=== PATIENT | male | born 1980 | race Caucasian/White ===

== ENCOUNTER 2016-07-28 20:19 | Emergency (ER) | payer BC ==
[~2016-07-28] VITALS: Ht 177.8 cm; Wt 70.8 kg
[~2016-07-28 20:19] MED LIST: AZIT500T PO; FLUT0.0529 NAE; MAGN64TA4 PO; SALI0.6517 NAE
[2016-07-28 20:21] VITALS: TEMP 37.2; Ht 177.8 cm; Wt 70.8 kg
[2016-07-28] MEDS ORDERED: PRED-301 PO (20:32)
[2016-07-28] MEDS ORDERED: SODIUM CHLORIDE 0.9% 1000ML 1,000 ML IV STA ×2 (20:35→21:14)
[2016-07-28] MEDS ORDERED: ONDANSETRON INJ 2 MG/ML 2 ML VIAL IV STA ×2 (20:35→22:23)
--- NOTE | 2016-07-28 20:47 | EMERGENCY ROOM VISIT NOTE ---
History Report prepared by Nick: Saundra Nelson Under the Supervision of: Dr. Loly Velazquez M.D. First contact with patient: 20:30 Chief Complaint: VOMITING Stated Complaint: VOMITING,WORRIED ABOUT KIDNEY History of Present Illness The patient is a 36 year old male who presents to the Emergency Room with complaints of constant vomiting beginning this morning. The patient states that he thinks that he has the stomach bug that has been going around. He notes associated diarrhea, dehydration, pain in his lower back. He notes that eating or drinking causes him to vomit and worsens his symptoms. He is concerned as he has not been able to keep liquids down. The patient states that he has nephropathy and is concerned about his kidney. Source of History: patient Onset: this morning Position: other (global) Quality: other (vomiting) Timing: constant Modifying Factors (Worsening): eating, drinking Associated Symptoms: + diarrhea Note: He notes associated dehydration, pain in his lower back. Review of Systems See HPI for pertinent positives & negatives. A total of 10 systems reviewed and were otherwise negative. Past Medical & Surgical Medical Problems: (1) Gout (2) IgA nephropathy Surgical Problems: (1) H/O exploratory laparotomy Family History Hypertension Kidney disease Social History Smoking Status: Never Smoker Alcohol Use: none Drug Use: none Marital Status: single Housing Status: lives with family Occupation Status: employed Current/Historical Medications Scheduled Allopurinol (Zyloprim), 300 MG PO DAILY Atorvastatin (Lipitor), 10 MG PO DAILY Fish Oil ([place]-3), 1,200 MG PO DAILY Multivitamin (Multivitamin), 1 TAB PO DAILY Ondasetron Odt (Zofran Odt), 4 MG SL Q6H Scheduled PRN Colchicine (Colchicine), 0.6 MG PO DIRECTED PRN for PRN Fluticasone Propionate (Nasal) (Flonase), 2 SPRAYS VEE DAILY PRN for CONGESTION Prednisone (Prednisone), 5 MG PO DIRECTED PRN for PRN Allergies Coded Allergies: Acetaminophen (Unverified Allergy, Mild, ITCHY, 07/28/16) Oxycodone (Unverified Allergy, Mild, ITCHY, 07/28/16) Physical Exam Vital Signs Date Time Temp Pulse Resp B/P Pulse Ox O2 Delivery O2 Flow Rate FiO2 07/28/16 23:01 87 18 144/86 97 07/28/16 21:53 95 18 111/61 99 Room Air 07/28/16 20:21 37.2 99 18 112/62 99 Room Air Physical Exam Vital signs reviewed. General: Well-appearing, in no significant distress. HEENT: No scleral icterus, PERRLA, neck supple. Atraumatic. Cardiovascular: Regular rate and rhythm, no extra sounds. Pulmonary: Clear to auscultation bilaterally, normal work of breathing. Abdomen: Soft, nontender, nondistended, positive bowel sounds. Musculoskeletal: Atraumatic, no peripheral edema. Neurologic: Patient awake alert and oriented x 3, full strength in all 4 extremities. Cranial nerves 2 through 12 grossly intact. Skin: Warm, dry, no rash Medical Decision & Procedures Laboratory Results 07/28/16 20:30 Red Blood Count 4.65, Mean Corpuscular Volume 91.0, Mean Corpuscular Hemoglobin 31.2, Mean Corpuscular Hemoglobin Concent 34.3, Mean Platelet Volume 11.6, Neutrophils (%) (Auto) 89.6, Lymphocytes (%) (Auto) 4.8, Monocytes (%) (Auto) 4.7, Eosinophils (%) (Auto) 0.5, Basophils (%) (Auto) 0.1, Neutrophils # (Auto) 13.12, Lymphocytes # (Auto) 0.71, Monocytes # (Auto) 0.69, Eosinophils # (Auto) 0.08, Basophils # (Auto) 0.02 07/28/16 20:30 Test 07/28/16 20:30 White Blood Count 14.66 K/uL (4.8-10.8) Red Blood Count 4.65 M/uL (4.7-6.1) Hemoglobin 14.5 g/dL (14.0-18.0) Hematocrit 42.3 % (42-52) Mean Corpuscular Volume 91.0 fL (80-100) Mean Corpuscular Hemoglobin 31.2 pg (25-34) Mean Corpuscular Hemoglobin Concent 34.3 g/dl (32-36) Platelet Count 208 K/uL (130-400) Mean Platelet Volume 11.6 fL (7.4-10.4) Neutrophils (%) (Auto) 89.6 % Lymphocytes (%) (Auto) 4.8 % Monocytes (%) (Auto) 4.7 % Eosinophils (%) (Auto) 0.5 % Basophils (%) (Auto) 0.1 % Neutrophils # (Auto) 13.12 K/uL (1.4-6.5) Lymphocytes # (Auto) 0.71 K/uL (1.2-3.4) Monocytes # (Auto) 0.69 K/uL (0.11-0.59) Eosinophils # (Auto) 0.08 K/uL (0-0.5) Basophils # (Auto) 0.02 K/uL (0-0.2) RDW Standard Deviation 42.3 fL (36.4-46.3) RDW Coefficient of Variation 12.8 % (11.5-14.5) Immature Granulocyte % (Auto) 0.3 % Immature Granulocyte # (Auto) 0.04 K/uL (0.00-0.02) Urine Color YELLOW Urine Appearance CLEAR (CLEAR) Urine pH 5.0 (4.5-7.5) Urine Specific [place] 1.013 (1.000-1.030) Urine Protein 2+ (NEG) Urine Glucose (UA) NEG (NEG) Urine Ketones NEG (NEG) Urine Occult Blood NEG (NEG) Urine Nitrite NEG (NEG) Urine Bilirubin NEG (NEG) Urine Urobilinogen NEG (NEG) Urine Leukocyte Esterase NEG (NEG) Urine WBC (Auto) 1-5 /hpf (0-5) Urine RBC (Auto) 0-4 /hpf (0-4) Urine Hyaline Casts (Auto) 1-5 /lpf (0-5) Urine Epithelial Cells (Auto) 0-5 /lpf (0-5) Urine Bacteria (Auto) NEG (NEG) Anion Gap 11.0 mmol/L (3-11) Est Creatinine Clear Calc Drug Dose 46.0 ml/min Estimated GFR () 42.8 Estimated GFR (Non- 36.9 BUN/Creatinine Ratio 14.8 (10-20) Calcium Level 9.4 mg/dl (8.5-10.1) Total Bilirubin 0.5 mg/dl (0.2-1) Direct Bilirubin < 0.1 mg/dl (0-0.2) Aspartate Amino Transf (AST/SGOT) 15 U/L (15-37) Alanine Aminotransferase (ALT/SGPT) 15 U/L (12-78) Alkaline Phosphatase 96 U/L (45-117) Total Protein 7.3 gm/dl (6.4-8.2) Albumin 3.9 gm/dl (3.4-5.0) Lipase 369 U/L (73-393) Laboratory results per my review. Medications Administered Medications (Trade) Dose Ordered Sig/Shabana Route Start Time Stop Time Status Last Admin Dose Admin Sodium Chloride (Nss 1000ml) 1,000 ml @ 999 mls/hr Q1H1M STAT IV 07/28/16 20:35 07/28/16 21:35 DC 07/28/16 20:50 999 MLS/HR Ondansetron HCl 4 mg 4 mg NOW STAT IV 07/28/16 20:35 07/28/16 20:37 DC 07/28/16 20:50 4 MG Sodium Chloride (Nss 1000ml) 1,000 ml @ 200 mls/hr Q5H STAT IV 07/28/16 21:14 07/28/16 23:18 DC 07/28/16 21:27 200 MLS/HR Ondansetron HCl (Zofran Inj) 4 mg NOW STAT IV 07/28/16 22:23 07/28/16 22:25 DC 07/28/16 22:51 4 MG ED Course 2034: Past medical records reviewed. The patient was evaluated in room B11B. A complete history and physical examination was performed. 2034: Zofran Inj 4mg IV, Sodium Chloride 1000 ml @ 999 mls/hr IV. 2113: Sodium Chloride 1000 ml @ 200 mls/hr IV. 2222: Zofran Inj 4mg IV. 2250: Upon reevaluation, the patient appeared to have improvement of his symptoms. I discussed findings with the patient. He verbalized agreement of the treatment plan. The patient was discharged home. Medical Decision Differential diagnosis: Etiologies such as gastroenteritis, food borne illness, infections, appendicitis , diverticulitis, inflammatory bowel disease, obstruction, GI bleed, biliary pathology, as well as others were entertained. This patient was evaluated and appeared to be in no significant distress. IV access was obtained and laboratory work was drawn. Patient was placed on the night monitor and hydrated with normal saline solution. Patient was medicated with Zofran for nausea. Laboratory work reveals a creatinine of 2.2, consistent with the patient's baseline. Patient's white count is 14 also consistent with the patient's baseline. Patient was informed of the findings. He was advised to drink plenty of clear fluid and advance his diet slowly. He will use Zofran as needed for nausea and follow up with his physician within the next several days for re-evaluation. He will return to the ER for worsening of symptoms or any medical concerns. Impression Primary Impression: Vomiting Additional Impression: Chronic renal insufficiency Scribe Attestation The scribe's documentation has been prepared under my direction and personally reviewed by me in its entirety. I confirm that the note above accurately reflects all work, treatment, procedures, and medical decision making performed by me. Departure Information Dispostion Home / Self-Care Prescriptions Ondasetron Odt (ZOFRAN ODT) 4 Mg Tab 4 MG SL Q6H for Nausea, #20 TAB Prov: Loly Velazquez M.D. 07/28/16 Referrals Lynnette Torrez M.D. (MEDICAL) (PCP) Forms HOME CARE DOCUMENTATION FORM, IMPORTANT VISIT INFORMATION Patient Instructions A Signature Page, My [facility] Additional Instructions Diagnosis: Vomiting, chronic renal insufficiency Zofran 4 mg ODT every 6 hours as needed for nausea Drink plenty of clear fluids Advance diet slowly as tolerated. BRAT diet: Bananas, rice, applesauce and toast. Follow-up with your physician for reevaluation this week. Return to the ER for worsening of symptoms or any medical concerns.
[2016-07-28 20:49] LABS: BASO % 0.1 %; BASO ABS # 0.02 K/uL (0-0.2); COMPLETE YES; EOS % 0.5 %; HEMATOCRIT 42.3 % (42-52); IG% 0.3 %; LYMPH % 4.8 %; LYMPH ABS # 0.71 K/uL (1.2-3.4); MEAN CORPUSCULAR HEMOGLOBIN 31.2 pg (25-34); MEAN CORPUSCULAR HGB CONC 34.3 g/dl (32-36); MEAN PLATELET VOLUME 11.6 fL (7.4-10.4); MONO % 4.7 %; NEUT % 89.6 %; PLATELET COUNT 208 K/uL (130-400); RED BLOOD COUNT 4.65 M/uL (4.7-6.1); WHITE BLOOD COUNT 14.66 K/uL (4.8-10.8)
[2016-07-28 21:05] LABS: ALT/SGPT 15 U/L (12-78); BLOOD UREA NITROGEN 33 mg/dl (7-18); BUN/CREATININE RATIO 14.8 (10-20); CALCIUM 9.4 mg/dl (8.5-10.1); CARBON DIOXIDE 22 mmol/L (21-32); CHLORIDE 108 mmol/L (98-107); GLUCOSE 108 mg/dl (70-99); POTASSIUM 4.3 mmol/L (3.5-5.1); SODIUM 141 mmol/L (136-145)
[2016-07-28 21:07] LABS: URINE APPEARANCE CLEAR (CLEAR); URINE BILIRUBIN NEG (NEG); URINE COLOR YELLOW; URINE EPITHELIAL CELL AUTO 0-5 /lpf (0-5); URINE NITRITE NEG (NEG); URINE SPECIFIC GRAVITY 1.013 (1.000-1.030); UROBILINOGEN NEG (NEG); ZZUR CULT IF INDIC CLEAN CATCH NO
[2016-07-28 21:08] LABS: ALKALINE PHOSPHATASE 96 U/L (45-117); AST/SGOT 15 U/L (15-37); MANUAL MICROSCOPIC REQUIRED? NO; REVIEW REQ? NO
[2016-07-28] MEDS ORDERED: ONDA4TAB10 SL (22:49)
[2016-07-28 23:01] VITALS: BP 144/86; PULSE 87; O2SAT 97
[2016-10-18] MEDS ORDERED: ATOR10TA82 PO (20:24)
[2016-10-18] MEDS ORDERED: ALLO300T2 PO (20:26)
[2016-10-18] MEDS ORDERED: COLC0.6T54 PO (20:32)
[2016-10-18] MEDS ORDERED: MULT-506 PO (20:32)
[2016-10-18] MEDS ORDERED: OMEG10007 PO (20:33)
== END 2016-07-28 23:02 | disposition home or self-care (01) ==
LOC: C.EDB 20:19
DX: R11.10 Vomiting, unspecified (principal); N18.9 Chronic kidney disease, unspecified; R19.7 Diarrhea, unspecified; M10.9 Gout, unspecified; Z79.899 Other long term (current) drug therapy

== ENCOUNTER 2016-10-18 21:53 | Emergency (ER) | payer BC ==
[~2016-10-18] VITALS: Ht 177.8 cm; Wt 63.1 kg
[~2016-10-18 21:53] MED LIST changes: +ALLO300T2 PO; +ATOR10TA88 PO; -AZIT500T PO; +COLC0.6T54 PO; -MAGN64TA4 PO; +MULT-506 PO; +OMEG10007 PO; +ONDA4TAB10 SL; +PRED-301 PO; -SALI0.6517 NAE
[2016-10-18 21:55] VITALS: TEMP 37.6; Ht 177.8 cm; Wt 63.1 kg
[2016-10-18] MEDS ORDERED: PRED10TA PO (22:47)
[2016-10-18] MEDS ORDERED: FLUT0.15 NAE (22:47)
[2016-10-18] MEDS ORDERED: HYDR-5688 PO (22:47)
[2016-10-18] MEDS ORDERED: SODIUM CHLORIDE 0.9% 1000ML 1,000 ML IV STA (22:54)
[2016-10-18] MEDS ORDERED: ONDANSETRON INJ 2 MG/ML 2 ML VIAL IV STA (22:54)
[2016-10-18] MEDS ORDERED: SODIUM CHLORIDE 0.9% 500ML 500 ML IV STA (22:54)
[2016-10-18] MEDS ORDERED: FENTANYL CITRATE INJ 50 MCG/1 ML 2 ML VIAL IV STA (22:54)
[2016-10-18 23:07] LABS: BASO % 0.2 %; BASO ABS # 0.03 K/uL (0-0.2); COMPLETE YES; EOS % 0.2 %; HEMATOCRIT 40.4 % (42-52); IG% 0.4 %; LYMPH % 18.1 %; LYMPH ABS # 2.88 K/uL (1.2-3.4); MEAN CELL VOLUME 88.6 fL (80-100); MEAN CORPUSCULAR HEMOGLOBIN 30.5 pg (25-34); MEAN CORPUSCULAR HGB CONC 34.4 g/dl (32-36); MEAN PLATELET VOLUME 11.4 fL (7.4-10.4); MONO % 6.5 %; NEUT % 74.6 %; PLATELET COUNT 259 K/uL (130-400); RED BLOOD COUNT 4.56 M/uL (4.7-6.1); WHITE BLOOD COUNT 15.91 K/uL (4.8-10.8)
[2016-10-18 23:09] LABS: BUN/CREATININE RATIO 8.1 (10-20); CREATININE 2.1 mg/dl (0.60-1.40); MAGNESIUM 1.5 mg/dl (1.8-2.4); POTASSIUM 4.4 mmol/L (3.5-5.1)
[2016-10-18 23:30] LABS: URINE APPEARANCE CLEAR (CLEAR); URINE BILIRUBIN NEG (NEG); URINE COLOR YELLOW; URINE NITRITE NEG (NEG); URINE SPECIFIC GRAVITY 1.014 (1.000-1.030); UROBILINOGEN NEG (NEG); ZZUR CULT IF INDIC CLEAN CATCH NO
[2016-10-18 23:31] LABS: MANUAL MICROSCOPIC REQUIRED? NO; REVIEW REQ? NO
--- NOTE | 2016-10-18 23:35 | EMERGENCY ROOM VISIT NOTE ---
History Report prepared by Nick: Salome Dasilva Under the Supervision of: Dr. Loly Velazquez M.D. First contact with patient: 22:09 Chief Complaint: ABDOMINAL PAIN Stated Complaint: BACK PAIN, HX OF KIDNEY DISEASE, Nursing Triage Summary: reports hx of abdominal pain with chronic kidney problems , started with nausea last night and pain started to day radiates into L back , denies urinary pain or prob urinating History of Present Illness The patient is a 36 year old male who presents to the Emergency Room with complaints of worsening left-sided flank pain beginning earlier today. He reports nausea and loss of appetite for the past 2 days. He has only eaten a small amount of applesauce today. He has been experiencing left-sided flank pain that he describes as sharp and stabbing. It radiates into his abdomen and lower back. He rates his pain as an 8/10 in severity. He has had nausea and vomiting. He states that earlier today he was vomiting "battery acid green," but he is currently just dry heaving. He has been having hot and cold flashes. He had a normal bowel movement this morning. The patient has Vicodin at home for gout. He took Vicodin today for his symptoms. He states that it helped to alleviate his pain, but it increased his nausea. He denies black or bloody stools, diarrhea, and urinary symptoms. The patient has a history of IgA nephropathy and his kidneys currently function around 17%. Source of History: patient Onset: earlier today Position: other (left-sided flank) Symptom Intensity: 8/10 Quality: sharp, stabbing Timing: worsening Modifying Factors (Relieving): narcotics Associated Symptoms: + abdominal pain, + back pain, + nausea, + vomiting, No diarrhea, No hematochezia, No melena, No urinary symptoms Review of Systems See HPI for pertinent positives & negatives. A total of 10 systems reviewed and were otherwise negative. Past Medical & Surgical Medical Problems: (1) Gout (2) IgA nephropathy Surgical Problems: (1) H/O exploratory laparotomy Family History Hypertension Kidney disease Social History Smoking Status: Never Smoker Alcohol Use: none Drug Use: none Marital Status: single Housing Status: lives with family Occupation Status: employed Current/Historical Medications Scheduled Allopurinol (Zyloprim), 300 MG PO DAILY Atorvastatin (Lipitor), 10 MG PO DAILY Fish Oil ([place]-3), 2 CAP PO DAILY Levofloxacin (Levaquin), 750 MG PO Q2D Multivitamin (Multivitamin), 1 TAB PO DAILY Scheduled PRN Colchicine (Colchicine), 0.6 MG PO UD PRN for Gout Flare Up Fluticasone Propionate (Nasal) (Flonase Allergy Relief), 2 SPRAYS VEE DAILY PRN for Nasal Congestion Hydrocodone/Acetaminophen 5MG/325MG ([place] 5MG/325MG), 1 TABLET PO Q6H PRN for Mild Pain Prednisone Tab (Prednisone), 10 MG PO UD PRN for Gout Flare Up Allergies Coded Allergies: Acetaminophen (Unverified Allergy, Mild, ITCHY, 07/28/16) Oxycodone (Unverified Allergy, Mild, ITCHY, 07/28/16) Physical Exam Vital Signs Date Time Temp Pulse Resp B/P Pulse Ox O2 Delivery O2 Flow Rate FiO2 10/19/16 01:03 75 18 137/89 97 10/19/16 00:16 71 18 128/85 94 Room Air 10/18/16 23:36 73 10/18/16 21:55 37.6 95 18 107/68 96 Room Air Physical Exam Vital signs reviewed. General: Chronically ill-appearing 36 year old male, warm to touch, in no significant distress. HEENT: No scleral icterus, PERRLA, neck supple. Atraumatic. Cardiovascular: Regular rate and rhythm, no extra sounds. Pulmonary: Clear to auscultation bilaterally, normal work of breathing. Abdomen: Soft, mild diffuse abdominal tenderness, nondistended, no rebound or guarding, positive bowel sounds. Musculoskeletal: Atraumatic, no peripheral edema. No CVA tenderness. Neurologic: Patient awake alert and oriented x 3, full strength in all 4 extremities. Cranial nerves 2 through 12 grossly intact. Skin: Warm, dry, no rash Medical Decision & Procedures ER Provider Diagnostic Interpretation: Chest x-ray as interpreted by myself reveals no acute pulmonary consolidation, evidence of failure , or pneumothorax. Radiology results as stated below per my review and radiologist interpretation: CT ABDOMEN & PELVIS: Comparison CT abdomen pelvis 07/01/2013. Focal consolidation in the posterior medial left lung base may represent pneumonia and may account for the left flank pain. Slightly atrophic appearance of both kidneys without evidence renal or ureteral calculi. No evidence of hydronephrosis or obstructive uropathy. Remaining solid organs are unremarkable as noncontrast examination to calculi. Stomach and small intestine are within normal limits. Appendix is within normal limits. Sigmoid diverticulosis without evidence of diverticulitis. Trace left common iliac arterial calcification. Radiologist: Gabo Ortega MD. Laboratory Results 10/18/16 22:20 Red Blood Count 4.56, Mean Corpuscular Volume 88.6, Mean Corpuscular Hemoglobin 30.5, Mean Corpuscular Hemoglobin Concent 34.4, Mean Platelet Volume 11.4, Neutrophils (%) (Auto) 74.6, Lymphocytes (%) (Auto) 18.1, Monocytes (%) (Auto) 6.5, Eosinophils (%) (Auto) 0.2, Basophils (%) (Auto) 0.2, Neutrophils # (Auto) 11.88, Lymphocytes # (Auto) 2.88, Monocytes # (Auto) 1.03, Eosinophils # (Auto) 0.03, Basophils # (Auto) 0.03 10/18/16 22:20 Test 10/18/16 22:20 10/18/16 22:23 10/19/16 00:30 White Blood Count 15.91 K/uL (4.8-10.8) Red Blood Count 4.56 M/uL (4.7-6.1) Hemoglobin 13.9 g/dL (14.0-18.0) Hematocrit 40.4 % (42-52) Mean Corpuscular Volume 88.6 fL (80-100) Mean Corpuscular Hemoglobin 30.5 pg (25-34) Mean Corpuscular Hemoglobin Concent 34.4 g/dl (32-36) Platelet Count 259 K/uL (130-400) Mean Platelet Volume 11.4 fL (7.4-10.4) Neutrophils (%) (Auto) 74.6 % Lymphocytes (%) (Auto) 18.1 % Monocytes (%) (Auto) 6.5 % Eosinophils (%) (Auto) 0.2 % Basophils (%) (Auto) 0.2 % Neutrophils # (Auto) 11.88 K/uL (1.4-6.5) Lymphocytes # (Auto) 2.88 K/uL (1.2-3.4) Monocytes # (Auto) 1.03 K/uL (0.11-0.59) Eosinophils # (Auto) 0.03 K/uL (0-0.5) Basophils # (Auto) 0.03 K/uL (0-0.2) RDW Standard Deviation 42.1 fL (36.4-46.3) RDW Coefficient of Variation 13.1 % (11.5-14.5) Immature Granulocyte % (Auto) 0.4 % Immature Granulocyte # (Auto) 0.06 K/uL (0.00-0.02) Anion Gap 11.0 mmol/L (3-11) Est Creatinine Clear Calc Drug Dose 43.0 ml/min Estimated GFR () 45.2 Estimated GFR (Non- 39.0 BUN/Creatinine Ratio 8.1 (10-20) Calcium Level 10.0 mg/dl (8.5-10.1) Magnesium Level 1.5 mg/dl (1.8-2.4) Total Bilirubin 0.8 mg/dl (0.2-1) Direct Bilirubin 0.1 mg/dl (0-0.2) Aspartate Amino Transf (AST/SGOT) 13 U/L (15-37) Alanine Aminotransferase (ALT/SGPT) 13 U/L (12-78) Alkaline Phosphatase 89 U/L (45-117) Total Protein 7.9 gm/dl (6.4-8.2) Albumin 4.0 gm/dl (3.4-5.0) Lipase 248 U/L (73-393) Urine Color YELLOW Urine Appearance CLEAR (CLEAR) Urine pH 6.0 (4.5-7.5) Urine Specific [place] 1.014 (1.000-1.030) Urine Protein 3+ (NEG) Urine Glucose (UA) NEG (NEG) Urine Ketones NEG (NEG) Urine Occult Blood NEG (NEG) Urine Nitrite NEG (NEG) Urine Bilirubin NEG (NEG) Urine Urobilinogen NEG (NEG) Urine Leukocyte Esterase NEG (NEG) Urine WBC (Auto) 0 /hpf (0-5) Urine RBC (Auto) 0-4 /hpf (0-4) Urine Hyaline Casts (Auto) 0 /lpf (0-5) Urine Epithelial Cells (Auto) 5-10 /lpf (0-5) Urine Bacteria (Auto) NEG (NEG) Influenza Type A (RT-PCR) Neg for Influ A (NEG) Influenza Type A Antigen Neg for Influ A (NEG) Influenza Type B Antigen Neg for Influ B (NEG) Influenza Type B (RT-PCR) Neg for Influ B (NEG) Laboratory results per my review. Medications Administered Medications (Trade) Dose Ordered Sig/Shabana Route Start Time Stop Time Status Last Admin Dose Admin Sodium Chloride 500 ml @ 999 mls/hr Q31M STAT IV 10/18/16 22:54 10/18/16 23:24 DC 10/18/16 22:54 999 MLS/HR Sodium Chloride (Nss 1000ml) 1,000 ml @ 200 mls/hr Q5H STAT IV 10/18/16 22:54 10/19/16 01:33 DC 10/18/16 23:07 200 MLS/HR Ondansetron HCl (Zofran Inj) 4 mg NOW STAT IV 10/18/16 22:54 10/18/16 22:57 DC 10/18/16 23:04 4 MG Fentanyl Citrate (Fentanyl Inj) 100 mcg NOW STAT IV 10/18/16 22:54 10/18/16 22:57 DC 10/18/16 23:05 100 MCG Levofloxacin (Levaquin Tab) 750 mg NOW ONCE PO 10/19/16 00:15 10/19/16 00:16 DC 10/19/16 00:28 750 MG ED Course 2240: Past medical records reviewed. The patient was evaluated in room A2. A complete history and physical examination was performed. 2254: Fentanyl 100 mcg IV, Zofran 4 mg IV, NSS 1000 ml @ 200 mls/hr IV, NSS 500 ml @ 999 mls/hr IV 0015: Levofloxacin 750 mg PO 0016: I reassessed the patient at this time. He is feeling better and resting comfortably. I discussed the results and treatment plan with the patient. I answered all pertaining questions that he had. He expressed understanding and verbalized agreement. The patient will be discharged home. Medical Decision Differential diagnosis: Etiologies such as renal colic, appendicitis, diverticulitis, mesenteric ischemia, aortic pathology, infections, inflammatory bowel disease, PUD, biliary pathology, UTI, renal failure, viral illness, as well as others were entertained. This patient was evaluated and appeared to be in some discomfort. IV access was obtained and laboratory work was drawn. Patient was hydrated with normal saline solution, given IV fentanyl and Zofran. Laboratory work is consistent with his chronic renal failure. His creatinine is stable. Patient was feeling improved after the above medications. CT scan abdomen and pelvis reveals a pulmonary infiltrate in the left retrocardiac region. This is likely the source of the patient's pain. He was informed of the findings and was given by mouth Levaquin. He was placed on 750 mg of Levaquin every other day for 1 week. He is also given Zofran ODT home pack. The patient will push plenty of fluids and use Tylenol as needed for pain or fever. He will follow-up with his physician this week and return to the ER for worsening of symptoms or any medical concerns. Impression Primary Impression: Pneumonia Additional Impressions: Flank pain Chronic renal insufficiency Scribe Attestation The scribe's documentation has been prepared under my direction and personally reviewed by me in its entirety. I confirm that the note above accurately reflects all work, treatment, procedures, and medical decision making performed by me. Departure Information Dispostion Home / Self-Care Prescriptions Levofloxacin (Levaquin) 750 Mg Tab 750 MG PO Q2D for 7 Days, #3 TAB Prov: Loly Velazquez M.D. 10/19/16 Referrals No Doctor, Assigned (PCP) Forms Call Back Authorization, HOME CARE DOCUMENTATION FORM, IMPORTANT VISIT INFORMATION Patient Instructions My [facility] Additional Instructions Diagnosis: Pneumonia Levaquin 750 mg every other day for 1 week. Tylenol 650 mg every 6 hours as needed for pain or fever. Follow-up with your physician this week for reevaluation. Return to the ER for worsening of symptoms or any medical concerns. Problem Qualifiers Primary Impression: Pneumonia Pneumonia type: due to unspecified organism Laterality: left Lung location : lower lobe of lung Qualified Codes: J18.1 - Lobar pneumonia, unspecified organism Additional Impressions: Chronic renal insufficiency Chronic kidney disease stage: unspecified stage Qualified Codes: N18.9 - Chronic kidney disease, unspecified
[2016-10-19] MEDS ORDERED: LEVOFLOXACIN 250 MG TAB PO ONE (00:15)
[2016-10-19] MEDS ORDERED: LEVO1TAB35 PO (00:55)
[2016-10-19 01:03] VITALS: BP 137/89; PULSE 75; O2SAT 97
[2016-10-19] MEDS ORDERED: ONDANSETRON HOME PACK 4MG OD TAB PO ONE (01:15)
[2016-10-19 02:39] LABS: INFLUENZA A PCR Neg for Influ A (NEG); INFLUENZA B PCR Neg for Influ B (NEG)
--- NOTE | 2016-10-19 06:47 | DIAGNOSTIC IMAGING REPORT ---
CT OF THE ABDOMEN AND PELVIS WITHOUT CONTRAST CLINICAL HISTORY: Left flank pain and vomiting. COMPARISON STUDY: CT of the abdomen and pelvis July 01, 2013. TECHNIQUE: Axial images of the abdomen and pelvis were obtained without IV contrast. Images were reviewed in the axial, sagittal, and coronal planes. FINDINGS: The visualized portions of the lower chest demonstrate consolidation within the posterior basilar segment of the left lower lobe. This measures 2.3 cm in extent. No renal, ureteral or bladder calculi are present. There is renal cortical thinning, as before. Unenhanced images of the liver, spleen, adrenal glands and pancreas are normal. There is left colon diverticulosis without evidence for acute diverticulitis. There is no evidence for a bowel obstruction. No lymphadenopathy is present. The appendix is normal. Skeletal structures are unremarkable. IMPRESSION: 1. Small focus of consolidation within the posterior basilar segment of the left lower lobe suggestive of pneumonia. This may account for left flank pain. 2. No urinary calculi or hydronephrosis. Electronically signed by: Mynor Hanna M.D. 10/19/2016 6:46 AM Dictated Date/Time: 10/19/2016 6:41 AM
--- NOTE | 2016-10-19 07:46 | DIAGNOSTIC IMAGING REPORT ---
CHEST 2 VIEWS ROUTINE CLINICAL HISTORY: Pneumonia. COMPARISON STUDY: Chest CT July 02, [address] of the abdomen and pelvis October 18, 2016. FINDINGS: There is no pneumothorax or pleural effusion. The small focus of consolidation within the posterior basilar segment of the left lower lobe shown on the abdominal CT of October 18, 2016 is not visualized on this exam, likely due to technique. Cardiac size is normal. Mediastinal contours are normal. There is no evidence of pulmonary edema. IMPRESSION: The small focus of consolidation within the posterior basilar segment of the left lower lobe shown on abdominal CT of October 18, 2016 is not visualized on this exam, likely due to technique. Electronically signed by: Mynor Hanna M.D. 10/19/2016 7:45 AM Dictated Date/Time: 10/19/2016 7:44 AM
== END 2016-10-19 01:00 | disposition home or self-care (01) ==
LOC: C.EDB 21:54 → C.EDA 10-19 01:00
DX: J18.1 Lobar pneumonia, unspecified organism (principal); N18.9 Chronic kidney disease, unspecified; N02.8 Recurrent and persistent hematuria with other morphologic changes; M10.9 Gout, unspecified; Z82.49 Family history of ischemic heart disease and other diseases of the circulatory system; Z79.899 Other long term (current) drug therapy

== ENCOUNTER 2018-02-19 12:58 | Inpatient (IN) | payer BC ==
[~2018-02-19] VITALS: Ht 177.8 cm; Wt 54.2 kg
[~2018-02-19 12:58] MED LIST changes: +ATOR10TA82 PO; -ATOR10TA88 PO; -FLUT0.0529 NAE; +FLUT0.15 NAE; +HYDR-5688 PO; -ONDA4TAB10 SL; -PRED-301 PO; +PRED10TA PO
[2018-02-19 13:43] LABS: BASO % 0.1 %; BASO ABS # 0.02 K/uL (0-0.2); EOS % 0.2 %; EOS ABS # 0.03 K/uL (0-0.5); HEMATOCRIT 40.7 % (42-52); HEMOGLOBIN 13.8 g/dL (14.0-18.0); IG# 0.04 K/uL (0.00-0.02); LYMPH % 21.6 %; LYMPH ABS # 3.14 K/uL (1.2-3.4); MEAN CELL VOLUME 91.7 fL (80-100); MEAN CORPUSCULAR HEMOGLOBIN 31.1 pg (25-34); MEAN CORPUSCULAR HGB CONC 33.9 g/dl (32-36); MEAN PLATELET VOLUME 11.4 fL (7.4-10.4); MONO % 6.7 %; MONO ABS # 0.97 K/uL (0.11-0.59); NEUT % 71.1 %; NEUT ABS # 10.32 K/uL (1.4-6.5); PLATELET COUNT 224 K/uL (130-400); RED CELL DISTRIBUTION WIDTH CV 13.4 % (11.5-14.5); RED CELL DISTRIBUTION WIDTH SD 44.7 fL (36.4-46.3); WHITE BLOOD COUNT 14.52 K/uL (4.8-10.8)
[2018-02-19] MEDS ORDERED: LORAZEPAM 1 MG TAB PO ONE (13:45)
[2018-02-19 14:10] LABS: ALBUMIN 4.6 gm/dl (3.4-5.0); CALCIUM 9.8 mg/dl (8.5-10.1); CREATININE 2.34 mg/dl (0.60-1.40); POTASSIUM 4.1 mmol/L (3.5-5.1)
[2018-02-19] MEDS ORDERED: ACETAMINOPHEN 500 MG TAB PO STA (14:11)
[2018-02-19] MEDS ORDERED: ATV/1 PO ×2 (16:12)
[2018-02-19] MEDS ORDERED: SERT1TAB68 PO ×2 (16:12)
[2018-02-19] MEDS ORDERED: LISI-729 PO ×2 (16:12)
[2018-02-19] MEDS ORDERED: ONDA4TAB46 PO ×2 (16:12)
[2018-02-19] MEDS ORDERED: EFF75 PO (16:12)
[2018-02-19] MEDS ORDERED: SODIUM CHLORIDE 0.65% NA SOLN 45 ML (OCEAN) PRN (16:45)
[2018-02-19] MEDS ORDERED: ONDANSETRON 4 MG TAB PO PRN (16:45)
[2018-02-19] MEDS ORDERED: COLCHICINE 0.6 MG TAB PO PRN (16:45)
[2018-02-19] MEDS ORDERED: MAGNESIUM HYDROXIDE SUSP 30 ML UDC PO PRN (16:45)
[2018-02-19] MEDS ORDERED: ALUMINUM/MAGNESIUM SUSP 30 ML UDC PO PRN (16:45)
[2018-02-19] MEDS ORDERED: BISMUTH SUBSALICYLATE PER ML OMNICELL CHARGE PO PRN (16:45)
[2018-02-19] MEDS ORDERED: hydrOXYzine HCL 25 MG TAB PO PRN (16:45)
[2018-02-19] MEDS ORDERED: FLUTICASONE PROPIONATE NA SPR 16 GM BTL NAE PRN (16:45)
[2018-02-19 17:16] VITALS: O2SAT 98
[2018-02-19] MEDS: hydrOXYzine HCL 25 MG TAB PO PRN (17:55)
[2018-02-19] MEDS ORDERED: NURSING VERBAL MED ORDER ONE (18:30)
[2018-02-19 18:41] VITALS: BP 123/74; PULSE 75; TEMP 36.9; BMI 17.1
[2018-02-19] MEDS: LORAZEPAM 1 MG TAB PO SCH ×2 (18:47→21:20)
--- NOTE | 2018-02-19 20:38 | EMERGENCY ROOM VISIT NOTE ---
History Report prepared by Nick: Marilyn Murphy Under the Supervision of: Dr. Guilherme Lira M.D. First contact with patient: 14:02 Chief Complaint: MENTAL HEALTH EVALUATION Stated Complaint: ANXIOUS, MENTAL HEALTH History of Present Illness The patient is a 37 year old male who presents to the Emergency Room for a mental health evaluation. The patient complains of increased anxiety and depression over the past 2 months. He states that he has had a lot going on with family and work. He notes that he doesn't currently see a therapist, but has an appointment scheduled for March 10 with [facility]. He notes that his PCP started him on Seroquel and Zoloft 6 weeks ago. The patient complains of intermittent sleep, headache, tinging in extremities, loss of appetite, weight loss, and nausea. He notes that sometimes he will sleep for 14 hours and other times will sleep for 1.5 hours. He notes that he believes he has lost 10 lbs in the past 2 weeks. The patient denies abdominal pain, homicidal ideation, suicidal ideations, and hallucinations. Source of History: patient Onset: 2 months Quality: other (mental health) Timing: worsening Modifying Factors (Worsening): other (work and family) Associated Symptoms: + nausea, No abdominal pain Note: The patient complains of intermittent sleep, tingling in his extremities, loss of appetite, and weight loss. The patient homicidal ideation, suicidal ideations , and hallucinations. Review of Systems See HPI for pertinent positives and negatives. A total of ten systems were reviewed and were otherwise negative. Past Medical & Surgical Medical Problems: (1) Anxiety (2) Depression (3) Depression (4) Gout (5) IgA nephropathy Surgical Problems: (1) H/O exploratory laparotomy Family History Anxiety disorder FH: bipolar disorder Hypertension Kidney disease Social History Smoking Status: Never Smoker Alcohol Use: none Drug Use: none Marital Status: single Housing Status: lives with family Occupation Status: employed Current/Historical Medications Scheduled Allopurinol (Zyloprim), 300 MG PO DAILY Atorvastatin (Lipitor), 10 MG PO DAILY Fish Oil ([place]-3), 2 CAP PO DAILY Lisinopril (Zestril), 5 MG PO DAILY Lorazepam (Ativan), 1 MG PO Q6H Multivitamin (Multivitamin), 1 TAB PO DAILY Sertraline Hcl (Zoloft), 100 MG PO BID Venlafaxine Hcl (Effexor), 75 MG PO DAILY Scheduled PRN Colchicine (Colchicine), 0.6 MG PO UD PRN for Gout Flare Up Fluticasone Propionate (Nasal) (Flonase Allergy Relief), 2 SPRAYS VEE DAILY PRN for Nasal Congestion Hydrocodone/Acetaminophen 5MG/325MG ([place] 5MG/325MG), 1 TABLET PO Q6H PRN for Mild Pain Ondansetron Hcl (Zofran), 4 MG PO Q6H PRN for Nausea Prednisone Tab (Prednisone), 10 MG PO UD PRN for Gout Flare Up Allergies Coded Allergies: Oxycodone (Verified Adverse Reaction, Mild, ITCHY, 02/19/18) Physical Exam Vital Signs Date Time Temp Pulse Resp B/P (MAP) Pulse Ox O2 Delivery O2 Flow Rate FiO2 02/19/18 13:03 36.9 72 18 136/89 95 Room Air Physical Exam GENERAL: Awake, alert, well-appearing, in no distress HENT: Normocephalic, atraumatic. Oropharynx unremarkable. EYES: Normal conjunctiva. Sclera non-icteric. NECK: Supple. No nuchal rigidity. RESPIRATORY: Clear to auscultation. No wheezes. Normal respiratory effort. CARDIAC: Normal rate. Normal rhythm. Extremities warm and well perfused. GI: Soft, non-distended. No tenderness to palpation. No rebound or guarding. No masses. RECTAL: Deferred. MUSCULOSKELETAL: Atraumatic. Chest examination reveals no tenderness. The back is symmetrical on inspection without obvious abnormality. There is no CVA tenderness to palpation. LOWER EXTREMITIES: Calves are equal size bilaterally and non-tender. No edema NEURO: Normal sensorium. No sensory or motor deficits noted. Intact strength in all extremities. SKIN: Warm and dry. No rash or jaundice noted. PSYCH: Mildly tremulous. Anxious. Denies SI and HI. Intact fund of knowledge. No response to external stimuli. Medical Decision & Procedures Laboratory Results 02/19/18 13:32 Red Blood Count 4.44, Mean Corpuscular Volume 91.7, Mean Corpuscular Hemoglobin 31.1, Mean Corpuscular Hemoglobin Concent 33.9, Mean Platelet Volume 11.4, Neutrophils (%) (Auto) 71.1, Lymphocytes (%) (Auto) 21.6, Monocytes (%) (Auto) 6.7, Eosinophils (%) (Auto) 0.2, Basophils (%) (Auto) 0.1, Neutrophils # (Auto) 10.32, Lymphocytes # (Auto) 3.14, Monocytes # (Auto) 0.97, Eosinophils # (Auto) 0.03, Basophils # (Auto) 0.02 02/19/18 13:32 Test 02/19/18 13:24 02/19/18 13:32 Urine Color YELLOW Urine Appearance CLEAR (CLEAR) Urine pH 5.0 (4.5-7.5) Urine Specific [place] 1.018 (1.000-1.030) Urine Protein 2+ (NEG) Urine Glucose (UA) NEG (NEG) Urine Ketones TRACE (NEG) Urine Occult Blood TRACE (NEG) Urine Nitrite NEG (NEG) Urine Bilirubin NEG (NEG) Urine Urobilinogen NEG (NEG) Urine Leukocyte Esterase NEG (NEG) Urine WBC (Auto) 0 /hpf (0-5) Urine RBC (Auto) 0-4 /hpf (0-4) Urine Hyaline Casts (Auto) 1-5 /lpf (0-5) Urine Epithelial Cells (Auto) 0-5 /lpf (0-5) Urine Bacteria (Auto) NEG (NEG) Urine Opiates Screen NEG (NEG) Urine Methadone, Qualitative NEG (NEG) Urine Barbiturates NEG (NEG) Urine Phencyclidine (PCP) Level NEG (NEG) Ur Amphetamine/Methamphetamine NEG (NEG) MDMA (Ecstasy) Screen NEG (NEG) Urine Benzodiazepines Screen NEG (NEG) Urine Cocaine Metabolite NEG (NEG) Urine Marijuana (THC) POS (NEG) White Blood Count 14.52 K/uL (4.8-10.8) Red Blood Count 4.44 M/uL (4.7-6.1) Hemoglobin 13.8 g/dL (14.0-18.0) Hematocrit 40.7 % (42-52) Mean Corpuscular Volume 91.7 fL (80-100) Mean Corpuscular Hemoglobin 31.1 pg (25-34) Mean Corpuscular Hemoglobin Concent 33.9 g/dl (32-36) Platelet Count 224 K/uL (130-400) Mean Platelet Volume 11.4 fL (7.4-10.4) Neutrophils (%) (Auto) 71.1 % Lymphocytes (%) (Auto) 21.6 % Monocytes (%) (Auto) 6.7 % Eosinophils (%) (Auto) 0.2 % Basophils (%) (Auto) 0.1 % Neutrophils # (Auto) 10.32 K/uL (1.4-6.5) Lymphocytes # (Auto) 3.14 K/uL (1.2-3.4) Monocytes # (Auto) 0.97 K/uL (0.11-0.59) Eosinophils # (Auto) 0.03 K/uL (0-0.5) Basophils # (Auto) 0.02 K/uL (0-0.2) RDW Standard Deviation 44.7 fL (36.4-46.3) RDW Coefficient of Variation 13.4 % (11.5-14.5) Immature Granulocyte % (Auto) 0.3 % Immature Granulocyte # (Auto) 0.04 K/uL (0.00-0.02) Anion Gap 9.0 mmol/L (3-11) Est Creatinine Clear Calc Drug Dose 34.1 ml/min Estimated GFR () 39.4 Estimated GFR (Non- 34.0 BUN/Creatinine Ratio 17.9 (10-20) Calcium Level 9.8 mg/dl (8.5-10.1) Total Bilirubin 0.4 mg/dl (0.2-1) Aspartate Amino Transf (AST/SGOT) 15 U/L (15-37) Alanine Aminotransferase (ALT/SGPT) 16 U/L (12-78) Alkaline Phosphatase 58 U/L (45-117) Total Protein 8.0 gm/dl (6.4-8.2) Albumin 4.6 gm/dl (3.4-5.0) Globulin 3.4 gm/dl (2.5-4.0) Albumin/Globulin Ratio 1.4 (0.9-2) Thyroid Stimulating Hormone (TSH) 0.794 uIu/ml (0.300-4.500) Salicylates Level 5.1 mg/dl (2.8-20) Acetaminophen Level < 2 ug/ml (10-30) Ethyl Alcohol mg/dL < 3.0 mg/dl (0-3) Laboratory results reviewed by me. Medications Administered Medications (Trade) Dose Ordered Sig/Shabana Route Start Time Stop Time Status Last Admin Dose Admin Lorazepam (Ativan Tab) 1 mg ONE ONCE PO 02/19/18 13:45 02/19/18 13:46 DC 02/19/18 13:43 1 MG Acetaminophen (Tylenol Tab) 1,000 mg NOW STAT PO 02/19/18 14:11 02/19/18 14:13 DC 02/19/18 14:21 1,000 MG ED Course 1345: Ordered Ativan Tab 1 mg PO. 1403: The patient was evaluated in room A7. A complete history and physical exam was performed. 1411: Ordered Acetaminophen 1000 mg PO. 1638: I reevaluated the patient and he is resting comfortably. He verbally agrees and understands the treatment plan. 1640: The patient was accepted to [address] [place] [address] at this time. 1712: I signed the patients 201 at this time. Medical Decision Differential diagnosis: Etiologies such as mood disorder, infection, hypoglycemia, electrolyte abnormalities, cardiac sources, intracerebral event, toxicologic, neurologic, as well as others were entertained. Patient presents complaining of approximately 2 months of worsening severe anxiety secondary to some social issues. Intermittent issues with sleep. Family history of depression. Patient has a history of kidney disease and basic labs were completed here. Denies actively trying to harm himself or others. States no alcohol or drug use history. No prior inpatient psychiatric care issues. Does have history of gout as well and intermittently on steroids which likely are not helping his anxiety issues. I do not see any gross evidence of infection. Kidney function with a creatinine of 2.3 is at his baseline. Here for voluntary inpatient psychiatric admissions which I believe is in his best interest at this patient. Patient to be admitted here to the psychiatric service. Medication Reconcilliation Current Medication List: was personally reviewed by me Blood Pressure Screening Patient's blood pressure: Normal blood pressure Blood pressure disposition: Did not require urgent referral Impression Primary Impression: Acute anxiety Scribe Attestation The scribe's documentation has been prepared under my direction and personally reviewed by me in its entirety. I confirm that the note above accurately reflects all work, treatment, procedures, and medical decision making performed by me. Departure Information Dispostion Mental Health Acute Care Referrals No Doctor, Assigned (PCP) Forms HOME CARE DOCUMENTATION FORM, IMPORTANT VISIT INFORMATION Patient Instructions [facility]
[2018-02-20 06:57] VITALS: BP_SYST 106; BP_SYST 132; BP_DIAS 67; BP_DIAS 73; PULSE 53; PULSE 64; TEMP 36.7
[2018-02-20] MEDS ORDERED: VENLAFAXINE HCL XR 75 MG CAPXR PO SCH (09:00)
[2018-02-20] MEDS: OMEGA-3 (PURIFIED FISH OIL) 1 GM CAP PO SCH (09:08)
[2018-02-20] MEDS: MULTIVITAMIN TAB PO SCH (09:08)
[2018-02-20] MEDS: LORAZEPAM 1 MG TAB PO SCH ×2 (09:08→12:43)
[2018-02-20] MEDS: ATORVASTATIN 10 MG TAB PO SCH (09:08)
[2018-02-20] MEDS: LISINOPRIL 5 MG TAB PO SCH (09:09)
[2018-02-20] MEDS: ALLOPURINOL 300 MG TAB PO SCH (09:09)
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
[2018-02-20] MEDS: hydrOXYzine HCL 25 MG TAB PO PRN (15:38)
[2018-02-20 16:26] VITALS: Ht 177.8 cm; Wt 54.2 kg
[2018-02-20] MEDS: CLONAZEPAM 0.5 MG TAB PO SCH ×2 (17:16→21:53)
[2018-02-20] MEDS ORDERED: SERTRALINE HCL 100 MG TAB PO SCH (21:00)
[2018-02-21] MEDS ORDERED: NURSING VERBAL MED ORDER ONE
[2018-02-21] MEDS ORDERED: LORAZEPAM 2 MG TAB PO STA (00:15)
[2018-02-21] MEDS ORDERED: VENLAFAXINE HCL XR 75 MG CAPXR PO SCH (09:00)
[2018-02-21] MEDS: CLONAZEPAM 0.5 MG TAB PO SCH ×5 (09:30→23:37)
[2018-02-21] MEDS: OMEGA-3 (PURIFIED FISH OIL) 1 GM CAP PO SCH (09:31)
[2018-02-21] MEDS: MULTIVITAMIN TAB PO SCH (09:31)
[2018-02-21] MEDS: ATORVASTATIN 10 MG TAB PO SCH (09:31)
[2018-02-21] MEDS: ALLOPURINOL 300 MG TAB PO SCH (09:32)
[2018-02-21] MEDS: LISINOPRIL 5 MG TAB PO SCH (09:32)
[2018-02-21] MEDS: VENLAFAXINE PO SCH ×2 (09:32)
--- NOTE | 2018-02-21 13:26 | Psychiatric Progress Notes ---
Progress Note Date of Service Feb 21, 2018. Chief Complaint "Your staff is horrible and this place is making me worse ". Subjective Patient was seen & assessed interval progress reviewed with Treatment Team. Reviewed a generally positive afternoon yesterday. Patient was observed to be smiling and cheerful interacting with the child patient unit in positive way. Fortunately in the evening, patient who suffers from psychosis swore at him tried to verbally reassure her while in the common area. I reviewed the staff notes following the incident. It appears patient was counseled that he was asked to leave the area to de-escalate the situation and was counseled about this directly by the staff after the fact. He expressed frustration and wished to leave the hospital. 72 hour notice process was explained to him however he declined to sign. He also threatened to call the police and was told he could do so however he did not place a call. It does not appear that he attempted to elope but did do some pacing and staring out of the front door. He ultimately received an Ativan 2 mg now dose to de-escalate him. This morning he is still angry, pacing in the hallway. He is somewhat threatening stating "if there are no consequences maybe I will just start punching things and swearing at people. " I offered him an opportunity to talk through what happened last evening. He expressed global dissatisfaction with the treatment that he is receiving, feels that he is "constantly in trouble," is angry that his roommate snores and he was not informed of that before he agreed to come into the hospital, he states that he requested the 72 hour notice last night and initially indicates that it was never brought for him however when I reviewed the documentation with him he acknowledges that he decided not to sign it because he was worried about how leaving AMA might impact his [id number] cost associated with his hospitalization. I suggested he call his insurer directly to inquire about this such that he can make well informed decisions for himself to which he stated "sure, I will just add more frustration to the whole thing." We discussed the variable presentations and problems of patient's on a mental health unit. We discussed again the goals of his care and he was ultimately redirectable to a productive conversation about his medications. He describes increased fatigue yesterday but also reminds me that he was sleep deprived and uncertain if the Klonopin has been directly sedating. He does perceive that is quite helpful in reducing his anxiety acutely. We discussed the fact that it may take a few days to a few weeks for his anxiety to fully diminish as the Zoloft is metabolized out, and as he comes off of the prednisone. I suggested we consider something like low-dose quetiapine to help additionally with his anxiety acutely and also provide some mood support and perhaps some impulse control off label. The risks and benefits of the medication were reviewed metabolic and motor risks and he verbalized understanding and was agreeable to a trial. Review of Systems Constitutional: + fatigue Neurologic: No balance problems Psychiatric: + problem reported (anger) Sleep Information Total Hours of Sleep: 3.50 Meal Information Percent of Breakfast Consumed: 0 Percent of Lunch Consumed: 100 Percent of Dinner Consumed: 75 Mental Status Exam During interview pt is: alert and oriented, uncooperative Appearance: disheveled Eye contact is: fair Motor behavior is: other (He is notably less restless. Body language very closed, arms crossed) Speech: other (Norma of speech is more staccato) Affect: angry, constricted Mood is: angry Thought process: perseveration, other (Demonstrates willingness to bend the truth to support his positions) Thought content: cognitive distortions, hopelessness Suicidal thought are: present ("I want to be "), Plan: denied, Intent: denied Homicidal thoughts are: denied, Plan: denied, Intent: denied Hallucinations: denies auditory, denies visual Cognition: memory grossly intact Intelligence estimated to be: average Insight: poor Judgement: poor Impression 37-year-old gentleman with minimal prior psychiatric history. He describes symptoms of possible underlying generalized anxiety disorder. Recently mood has decompensated in setting of multiple psychosocial stressors prompting titration of antidepressants. He appeared likely problematically activated taking combination of high-dose Zoloft and moderate dose of Effexor in the past month. Must watch for possible signs of underlying bipolar diathesis as he reports identical twin caries that diagnosis however he denies symptoms of obvious mood cycling historically. He is demonstrating personality traits strongly suggestive of underlying borderline personality disorder. Diagnosis: MDD, single episode, severe, without psychosis, with anxious distress ; rule out underlying generalized anxiety disorder; r/o borderline PD Plan (1) Depression 02/20 -Patient requires inpatient hospitalization secondary failure of outpatient interventions and declining condition with significant weight loss, diminished self-care, and severity of symptomatology impacting her functional abilities - watch for evidence of hypomania/nakia (twin has BPAD) - I am concerned that combination of Zoloft and Effexor is contributing to acute anxiety and will discontinue the Zoloft. We will plan to try increasing the Effexor slightly tomorrow morning to 112.5 mg for treatment of depression. Previously the Zoloft was inadequate at 200 mg dose - endorsing passive wish without active SI but risk is increased secondary to depression and severity of anxious symptomatology which is impacting his ability to cope and problem solve - pt will be referred for outpatient f/u prior to discharge - has h/o some abrupt anger but not to level of impulse control d/o. may benefit from something like lamictal augmentation in future, particularly considering FH of BPAD - reviewed potential benefits of cogntiive behavioral therapy addressing emotional response to multiple stressors 02/21 -Mood decompensated in setting of increased situational frustration and anger. Feelings of frustration and loss of control were validated while attempting to maintain appropriate boundaries regarding expectations for behavior on the unit. -Consider borderline personality disorder diagnosis contributing significantly to mood and affect dysregulation -Reviewed 72 hour notice process with patient and he verbalized that he understands he can sign the notice if he desires -Expressing wish without active suicidal plan or intent (2) Anxiety 02/20 - unclear if primary process, anxious distress assoc w/ depression, or med reaction - ativan rx new and bzd presently indicated. will try klonopin at 0.5mg qid as alternative to ativan to reduce wear off between doses and easier to taper. reviewed risks including habituation and black box warning in combination w/ opiates. expectation is that this is a temporary intervention 02/21 -We will trial Seroquel 25 mg 4 times daily as as needed for anxiety and agitation to start. Benefit from longer term treatment and would need screening labs prior to discharge. Risks and benefits including potential metabolic side effects and motor side effects including tardive dyskinesia reviewed and patient verbalized understanding and consent to trial. Discharge / Aftercare Planning Primary Care Physician: Name: Stephani Steel Psychiatrist: Name: [facility], intake 02/24 Therapist: Name: none Visit Code E&M Code: 77765 Inventory Assets Strengths: help seeking. compliant Needs: medication management and counseling Risk Factors Assessment Male: Yes : Yes /single/: Yes Health problems: Yes Mental Health Diagnoses: Yes Substance use disorders: No Previous attempt: No Family history of suicide: No Previous psychiatric stay: No Hopelessness: Yes Smoker: No Protective Factors Assessment Taoist beliefs: Yes : No Responsible for young children: Yes Employed: Yes Supportive family: Yes Data Meds Administered Last 24 Hrs: Meds Administered (Past 24Hrs) Medications (Trade) Dose Ordered Sig/Shabana Route Start Time Stop Time Status Last Admin Dose Admin Lorazepam (Ativan Tab) 1 mg ONE ONCE PO 02/19/18 13:45 02/19/18 13:46 DC 02/19/18 13:43 1 MG Acetaminophen (Tylenol Tab) 1,000 mg NOW STAT PO 02/19/18 14:11 02/19/18 14:13 DC 02/19/18 14:21 1,000 MG Allopurinol (Zyloprim Tab) 300 mg DAILY PO 02/20/18 09:00 03/22/18 08:59 02/21/18 09:32 300 MG Atorvastatin Calcium (Lipitor Tab) 10 mg DAILY PO 02/20/18 09:00 03/22/18 08:59 02/21/18 09:31 10 MG Lisinopril (Zestril Tab) 5 mg DAILY PO 02/20/18 09:00 03/22/18 08:59 02/21/18 09:32 5 MG Multivitamins (Multivitamin Tab) 1 tab DAILY PO 02/20/18 09:00 03/22/18 08:59 02/21/18 09:31 1 TAB Venlafaxine HCl (effeXOR EXTENDED REL CAP) 75 mg QAM PO 02/20/18 09:00 02/20/18 13:11 DC 02/20/18 09:08 75 MG Fish Oil (Mcclusky-3 (Purified Fish Oil) Cap) 1 gm QAM PO 02/20/18 09:00 03/22/18 08:59 02/21/18 09:31 1 GM Hydroxyzine HCl (Vistaril Tab) 25 mg Q4H PRN PO 02/19/18 16:45 03/21/18 16:44 02/20/18 15:38 25 MG Lorazepam (Ativan Tab) 1 mg QID PO 02/19/18 18:13 02/20/18 13:09 DC 02/20/18 12:43 1 MG Prednisone (PredniSONE TAB) 30 mg Taper DAILY PO 02/20/18 09:00 03/02/18 08:59 02/21/18 09:31 30 MG Prednisone (PredniSONE TAB) 40 mg NOW ONCE PO 02/19/18 18:45 02/19/18 18:52 DC 02/19/18 19:05 40 MG Clonazepam (Klonopin Tab) 0.5 mg QID PO 02/20/18 17:00 03/22/18 16:59 02/21/18 11:29 0.5 MG Venlafaxine HCl (effeXOR EXTENDED REL CAP) 112.5 mg QAM PO 02/21/18 09:00 03/23/18 08:59 02/21/18 09:32 112.5 MG Lorazepam (Ativan Tab) 2 mg NOW STAT PO 02/21/18 00:15 02/21/18 00:16 DC 02/21/18 00:19 2 MG
[2018-02-21] MEDS: QUETIAPINE FUMARATE 25 MG TAB PO PRN ×2 (14:09→23:44)
[2018-02-22 07:03] VITALS: BP_SYST 107; BP_SYST 118; BP_DIAS 73; BP_DIAS 74; PULSE 67; PULSE 71; TEMP 36.6
[2018-02-22] MEDS: MULTIVITAMIN TAB PO SCH (08:18)
[2018-02-22] MEDS: LISINOPRIL 5 MG TAB PO SCH (08:18)
[2018-02-22] MEDS: CLONAZEPAM 0.5 MG TAB PO SCH ×3 (08:18→21:05)
[2018-02-22] MEDS: ALLOPURINOL 300 MG TAB PO SCH (08:18)
[2018-02-22] MEDS: ATORVASTATIN 10 MG TAB PO SCH (08:18)
[2018-02-22] MEDS: VENLAFAXINE PO SCH ×2 (08:19)
[2018-02-22] MEDS: OMEGA-3 (PURIFIED FISH OIL) 1 GM CAP PO SCH (08:19)
--- NOTE | 2018-02-22 10:03 | Psychiatric Progress Notes ---
Progress Note Date of Service Feb 22, 2018. Interval History Anoop Brandon is a 37-year-old male admitted on Feb 19, 2018 at 16:44 who currently lives in [place], [place] alone. Anoop Brandon was admitted on a 201 voluntary commitment. Patient is admitted from home. The patient presented to the ED on referral from PCP for severe depression and anxiety. Chief Complaint "I am in the complete wrong place for myself, your staff are horrible ". Subjective Patient was seen & assessed interval progress reviewed with Treatment Team. Staff report the patient has been irritable and angry with numerous complaints about his treatment. He has demanded to leave, has been offered a 72 hour notice on multiple occasions by multiple staff, and has repeatedly declined to submit one. A venlafaxine XR capsule was found in his room this morning. He received 2 doses of quetiapine 25 mg yesterday. He will not answer staff directly when asked if he is suicidal. On my assessment, he gives a long and detailed account of his many complaints about his treatment here, accusing staff of lying to him, and "punishing him." He is poorly receptive to attempts to reframe his experiences. He reports that mood and anxiety are worse than they were on admission, states he has been "unable to stop shaking for months," and is angry that he is still shaking here. He denies cheeking his venlafaxine XR, and will not answer questions about how the pill might have not been ingested. He states that he feels a bit better than yesterday, due to his numerous complaints about interactions with staff and peers yesterday, but continues to feel angry and frustrated, and states "I don't want to live like this anymore, I don't care if I live or ." He is unable to discuss any type of plan to work on his symptoms as an outpatient, cannot review a safety plan, and will not answer how he will keep himself safe and provide for his basic needs outside of the hospital. He states that he has not been eating, and recently lost 10 pounds. He goes on to talk about his numerous psychosocial stressors, including his health problems, poor relationship with his ex and teenage son, anger about the legal system, his job, unhappiness with his housing situation, and multiple family stressors. He lists many dissatisfactions with his outpatient medical care, stating that multiple outpatient doctors have left, and he has had to see different providers. He states that he was recently started on Lorazepam, but then saw a physician who changed his psychotropic medications. He says that at one point he ran out of the Lorazepam for 2 days, "so I had to start smoking marijuana again." Per PDMP , he has filled 3 different 10 day prescriptions of lorazepam since 01/07/2018, from 3 different physicians, initially for 1 mg 3 times daily, and most recently for 1 mg twice daily. It is difficult to clarify whether or not the medication adjustments made thus far have been helpful, as on the one hand he reports that he is still shaky, irritable, and does not want to live, but does state that the as needed quetiapine has been helpful. On multiple occasions asked him to repeat back his understanding of information he was given, and he was unable to do so accurately. For example, spent some time discussing the treatment plan and thinks it would recommend working on prior to discharge, including attending groups, working on a safety plan, having a family meeting was someone he identifies as supportive, and his response when asked to explain what we just discussed was that "basically, told me to keep my mouth shut." Tried multiple times to get him to prioritize his stressors and symptoms to identify what he would like to focus on here, which he refused to do. He says he "just wants to leave today with myself," but even after multiple attempts is unable to go over any type of discharge plan. He states that he has a very supportive friend who visited last night, and also states his mother is coming to visit today, but did not answer when asked several times about scheduling a family meeting. Interaction was ultimately ended as the patient was becoming increasingly angry, sarcastic and hostile in his responses. Review of Systems + Shaking Sleep Information Total Hours of Sleep: 7.00 Meal Information Percent of Breakfast Consumed: 0 Percent of Lunch Consumed: 0 Percent of Dinner Consumed: 0 Mental Status Exam During interview pt is: alert and oriented, uncooperative (Angry, irritable, hostile) Appearance: disheveled, other (Thin, appears older than stated age) Eye contact is: fair Motor behavior is: other (Restless, seated on chair with knees pulled up to chest) Speech: other (Angry, plaintive tone) Affect: angry, constricted Mood is: other ("Worse") Thought process: perseveration (On his numerous complaints about others), other (Demonstrates willingness to bend the truth to support his positions) Thought content: cognitive distortions, hopelessness Suicidal thought are: present ("I don't want to live like this anymore, I don' t care if I live or ."), Plan: denied, Intent: denied Homicidal thoughts are: denied, Plan: denied, Intent: denied Hallucinations: denies auditory, denies visual Cognition: memory grossly intact Intelligence estimated to be: average Insight: poor Judgement: poor Impression 37-year-old gentleman with minimal prior psychiatric history, there was briefly treated by his PCP before he was referred to the hospital. The differential includes generalized anxiety disorder, depression, and personality disorder. He appeared problematically activated on a combination of high-dose Zoloft and moderate dose of Effexor. Will need ongoing monitoring for underlying bipolar diathesis as he reports identical twin caries that diagnosis, but he denies symptoms of obvious mood cycling historically. He is demonstrating personality traits strongly suggestive of underlying borderline personality disorder. Diagnosis: MDD, single episode, severe, without psychosis, with anxious distress ; rule out underlying generalized anxiety disorder; r/o borderline PD Plan (1) Depression 02/20 -Patient requires inpatient hospitalization secondary failure of outpatient interventions and declining condition with significant weight loss, diminished self-care, and severity of symptomatology impacting her functional abilities - watch for evidence of hypomania/nakia (twin has BPAD) - I am concerned that combination of Zoloft and Effexor is contributing to acute anxiety and will discontinue the Zoloft. We will plan to try increasing the Effexor slightly tomorrow morning to 112.5 mg for treatment of depression. Previously the Zoloft was inadequate at 200 mg dose - endorsing passive wish without active SI but risk is increased secondary to depression and severity of anxious symptomatology which is impacting his ability to cope and problem solve - pt will be referred for outpatient f/u prior to discharge - has h/o some abrupt anger but not to level of impulse control d/o. may benefit from something like lamictal augmentation in future, particularly considering FH of BPAD - reviewed potential benefits of cognitive behavioral therapy addressing emotional response to multiple stressors 02/21 -Mood decompensated in setting of increased situational frustration and anger. Feelings of frustration and loss of control were validated while attempting to maintain appropriate boundaries regarding expectations for behavior on the unit. -Consider borderline personality disorder diagnosis contributing significantly to mood and affect dysregulation -Reviewed 72 hour notice process with patient and he verbalized that he understands he can sign the notice if he desires -Expressing wish without active suicidal plan or intent 02/22 -Patient continues to express a wish to be , severe depressive and anxiety symptoms, but poor engagement in treatment, instead focusing on his complaints/anger. Spent significant amount of time discussing how he can move past this and try to make some meaningful improvements to his symptoms, and he was poorly receptive. Reviewed multiple times criteria that we look for to move towards discharge, including that he feels safe leaving the hospital, is able to provide for his basic needs, has a safety plan and supports available if needed, and a plan to engage in outpatient care. He was unable to engage in a conversation about discharge, instead demanding discharge, and then turning the subject back to his many grievances. -Agree with the BPD, possibly primary diagnosis. -Encourage patient to attend and participate appropriately in groups, to work on a discharge safety plan, and to schedule a family meeting with either his friend or family member. -Advised patient of expectations for behavioral control and respectful treatment of staff and peers. -A venlafaxine XR tablet was found, appears to be his dose from yesterday morning. Patient denies intentionally cheeking the medication, but will write an order for staff to check his mouth after medication administration. Also advised him that symptoms may worsen if he is not getting his full dose of medication, and he may experience discontinuation syndrome. (2) Anxiety 02/20 - unclear if primary process, anxious distress assoc w/ depression, or med reaction - ativan rx new and bzd presently indicated. will try klonopin at 0.5mg qid as alternative to ativan to reduce wear off between doses and easier to taper. reviewed risks including habituation and black box warning in combination w/ opiates. expectation is that this is a temporary intervention 02/21 -We will trial Seroquel 25 mg 4 times daily as as needed for anxiety and agitation to start. Benefit from longer term treatment and would need screening labs prior to discharge. Risks and benefits including potential metabolic side effects and motor side effects including tardive dyskinesia reviewed and patient verbalized understanding and consent to trial. 02/22 -Concerned that clonazepam may be disinhibiting him, and he reports little effect, so will decreased to 0.5 mg 3 times daily. -He reports quetiapine was helpful, and encouraged him to take it more frequently today (only took 2 doses yesterday). Also discussed the need for monitoring on this medication due to the risk of metabolic syndrome, and that fasting lipid profile and glucose are ordered for tomorrow morning. Consider dose increase if needed. (3) Borderline personality disorder Refer for outpatient therapy Discharge / Aftercare Planning Primary Care Physician: Name: Stephani Steel Psychiatrist: Name: [facility], intake 02/24 Therapist: Name: none Visit Code E&M Code: 75796 Inventory Assets Strengths: help seeking. compliant Needs: medication management and counseling Risk Factors Assessment Male: Yes : Yes /single/: Yes Health problems: Yes Mental Health Diagnoses: Yes Substance use disorders: No Previous attempt: No Family history of suicide: No Previous psychiatric stay: No Hopelessness: Yes Smoker: No Protective Factors Assessment Hindu beliefs: Yes : No Responsible for young children: Yes Employed: Yes Supportive family: Yes Data Vital Signs Last 24 Hrs: Date Time Temp Pulse Resp B/P (MAP) Pulse Ox O2 Delivery O2 Flow Rate FiO2 02/22/18 07:03 36.6 67 16 118/73 71 107/74 Meds Administered Last 24 Hrs: Meds Administered (Past 24Hrs) Medications (Trade) Dose Ordered Sig/Shabana Route Start Time Stop Time Status Last Admin Dose Admin Clonazepam (Klonopin Tab) 0.5 mg QID PO 02/20/18 17:00 02/22/18 09:27 DC 02/22/18 08:18 0.5 MG Venlafaxine HCl (effeXOR EXTENDED REL CAP) 112.5 mg QAM PO 02/21/18 09:00 03/23/18 08:59 02/22/18 08:19 112.5 MG Lorazepam (Ativan Tab) 2 mg NOW STAT PO 02/21/18 00:15 02/21/18 00:16 DC 02/21/18 00:19 2 MG Quetiapine Fumarate (seroQUEL TAB) 25 mg Q6H PRN PO 02/21/18 13:30 03/23/18 13:29 02/21/18 23:44 25 MG
[2018-02-22] MEDS: QUETIAPINE FUMARATE 25 MG TAB PO PRN ×2 (17:32→23:37)
[2018-02-23 06:57] VITALS: BP_SYST 100; BP_SYST 110; BP_DIAS 66; BP_DIAS 67; PULSE 67; PULSE 81; TEMP 36.5
[2018-02-23] MEDS: MULTIVITAMIN TAB PO SCH (08:08)
[2018-02-23] MEDS: OMEGA-3 (PURIFIED FISH OIL) 1 GM CAP PO SCH (08:08)
[2018-02-23] MEDS: VENLAFAXINE PO SCH ×2 (08:08)
[2018-02-23] MEDS: ATORVASTATIN 10 MG TAB PO SCH (08:08)
[2018-02-23] MEDS: CLONAZEPAM 0.5 MG TAB PO SCH ×2 (08:08→13:29)
[2018-02-23] MEDS: LISINOPRIL 5 MG TAB PO SCH (08:09)
[2018-02-23] MEDS: ALLOPURINOL 300 MG TAB PO SCH (08:09)
[2018-02-23] MEDS: QUETIAPINE FUMARATE 25 MG TAB PO PRN (08:58)
[2018-02-23] MEDS ORDERED: VENL37.593 PO ×2 (09:04)
[2018-02-23] MEDS ORDERED: VENL-273 PO ×2 (09:10)
[2018-02-23] MEDS ORDERED: SRQ25 PO ×2 (09:10)
[2018-02-23] MEDS ORDERED: KLN5 PO ×2 (09:10)
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
== END 2018-02-23 13:31 | disposition home or self-care (01) | DRG 881 ==
LOC: C.EDB 12:59 → C.MHU 16:44 → ENRESERV 17:20 → C.MHU 02-21 13:42
PROVIDERS: ADMIT Psychiatry & Neurology Child & Adolescent Psychiatry; ATTEND Student in an Organized Health Care Education/Training Program
DX: F32.9 Major depressive disorder, single episode, unspecified (principal); Z68.1 Body mass index [BMI] 19.9 or less, adult; F41.1 Generalized anxiety disorder; F60.3 Borderline personality disorder; N18.9 Chronic kidney disease, unspecified; M10.9 Gout, unspecified; R63.6 Underweight; Z79.899 Other long term (current) drug therapy; Z88.5 Allergy status to narcotic agent; Z81.8 Family history of other mental and behavioral disorders; Z82.49 Family history of ischemic heart disease and other diseases of the circulatory system

== ENCOUNTER 2018-02-23 21:09 | Emergency (ER) | payer BC ==
[~2018-02-23] VITALS: Ht 177.8 cm; Wt 119.0 kg
[~2018-02-23 21:09] MED LIST changes: +ATV/1 PO; +EFF75 PO; +KLN5 PO; +LISI-729 PO; +ONDA4TAB46 PO; +SERT1TAB68 PO; +SRQ25 PO; +VENL-273 PO; +VENL37.593 PO
[2018-02-23 21:24] VITALS: TEMP 36.6; Ht 177.8 cm; Wt 119.0 kg
--- NOTE | 2018-02-23 21:34 | EMERGENCY ROOM VISIT NOTE ---
History Report prepared by Nick: Tomas Arriaga Under the Supervision of: Dr. Rajani Beckett D.O. First contact with patient: 21:19 Stated Complaint: MENTAL HEALTH History of Present Illness The patient is a 37 year old male who presents to the Emergency Room with complaints of an episode of suicidal statements occurring today. The patient states that he was discharged from [facility] today at 1400. He notes that he was mistreated while he was in [facility] and sent home with a poor plan. He reports that he called Crisis, as well as his PCP but did not get any helpful information. The patient states that he has become very stressed and frustrated with his treatment and care. He notes that [facility] then called him back to which he responded with "maybe I'll take all of my pills and drink a fifth of vodka." He reports that he has not had any suicidal ideations in the past and he states that he only said that out of frustration because he feels as though he needs help that he is not receiving. He notes that he wants someone to listen to him and to know that he "feels hopeless." He also complains of a twelve pound weight loss in the last two weeks. He reports that he has been constantly shaking for the last two months and has a very demanding job that has been stressing himself out more than usual. The patient states that he has a history of IgA nephropathy, chronic gout, and stomach issues. He notes that he has been feeling miserable for the last two months and reports that his doctors keep quitting so that he cannot receive treatment. The patient states that he does not drink alcohol, and he notes that he recently smoked marijuana in order to get some relief of his stress. Source of History: patient Onset: today Position: head Quality: other (suicidal statements) Timing: other (an episode) Note: The patient also complains of shakiness and of a twelve pound weight loss in the last two weeks. Review of Systems See HPI for pertinent positives & negatives. A total of 10 systems reviewed and were otherwise negative. Past Medical & Surgical Medical Problems: (1) Anxiety (2) Borderline personality disorder (3) Depression (4) Depression (5) Gout (6) IgA nephropathy Surgical Problems: (1) H/O exploratory laparotomy Family History Anxiety disorder FH: bipolar disorder Hypertension Kidney disease Social History Smoking Status: Never Smoker Alcohol Use: none Drug Use: marijuana Marital Status: single Housing Status: lives with family Occupation Status: employed Current/Historical Medications Scheduled Allopurinol (Zyloprim), 300 MG PO DAILY Atorvastatin (Lipitor), 10 MG PO DAILY Clonazepam (Clonazepam), 0.5 MG PO UD Fish Oil ([place]-3), 2 CAP PO DAILY Lisinopril (Zestril), 5 MG PO DAILY Multivitamin (Multivitamin), 1 TAB PO DAILY Venlafaxine Hcl (Venlafaxine Extended Rel), 1 CAP PO DAILY Venlafaxine Hcl (Venlafaxine Hcl Er), 75 MG PO QAM Scheduled PRN Colchicine (Colchicine), 0.6 MG PO UD PRN for Gout Flare Up Fluticasone Propionate (Nasal) (Flonase Allergy Relief), 2 SPRAYS VEE DAILY PRN for Nasal Congestion Ondansetron Hcl (Zofran), 4 MG PO Q6H PRN for Nausea Prednisone Tab (Prednisone), 10 MG PO UD PRN for Gout Flare Up Quetiapine Fumarate (Quetiapine Fumarate), 25 MG PO TID PRN for anxiety/ agitation Allergies Coded Allergies: Oxycodone (Verified Adverse Reaction, Mild, ITCHY, 02/19/18) Physical Exam Vital Signs Date Time Temp Pulse Resp B/P (MAP) Pulse Ox O2 Delivery O2 Flow Rate FiO2 02/23/18 23:11 95 18 91/70 98 Room Air 02/23/18 22:54 95 18 91/70 98 02/23/18 21:24 36.6 96 18 113/70 98 Room Air Physical Exam GENERAL: alert, well nourished, no distress, non-toxic, tremulous, anxious, makes good eye contact. EYE EXAM: normal conjunctiva, PERRL and EOM's grossly intact OROPHARYNX: no exudate, no erythema, lips, buccal mucosa, and tongue normal and mucous membranes are moist NECK: supple, no nuchal rigidity, no adenopathy, non-tender LUNGS: Clear to auscultation. Normal chest wall mechanics HEART: no murmurs, S1 normal and S2 normal ABDOMEN: abdomen soft, non-tender, normo-active bowel sounds, no masses, no rebound or guarding. BACK: Back is symmetrical on inspection and there is no deformity, no midline tenderness, no CVA tenderness. SKIN: no rashes and no bruising UPPER EXTREMITIES: upper extremities are grossly normal. LOWER EXTREMITIES: No pitting edema. NEURO EXAM: Normal sensorium, cranial nerves II-XII grossly intact, normal speech, no gross weakness of arms, no gross weakness of legs. Medical Decision & Procedures ED Course 2120: The patient was evaluated in room A5. A complete history and physical exam was performed. 2229: Patient seen and evaluated by psychiatric manager rn case and feels patient is stable for outpatient discharge. Patient has a previously scheduled follow- up appointment tomorrow as well as an additional med management appointment for next week. Patient is not suicidal or homicidal here. I do not feel he is an imminent danger to himself or others and the manager rn case is in agreement. 2236: Upon reevaluation, the patient is feeling better. I discussed the findings and the treatment plan with the patient. He verbalizes agreement and understanding. The patient was discharged home. Medical Decision Differential diagnosis: Etiologies such as mood disorder, infection, hypoglycemia, electrolyte abnormalities, cardiac sources, intracerebral event, toxicologic, neurologic, as well as others were entertained. Patient here just discharged following inpatient psychiatric treatment. Patient having difficult time handling his anxiety and stressors. I do not feel patient is an imminent danger to himself or anyone else. Patient here not clinically intoxicated or altered. He had no other physical complaints. Medication Reconcilliation Current Medication List: was personally reviewed by me Blood Pressure Screening Patient's blood pressure: Normal blood pressure Blood pressure disposition: Did not require urgent referral Impression Primary Impression: Acute anxiety Scribe Attestation The scribe's documentation has been prepared under my direction and personally reviewed by me in its entirety. I confirm that the note above accurately reflects all work, treatment, procedures, and medical decision making performed by me. Departure Information Dispostion Home / Self-Care Referrals Lorie Fuller D.O. (PCP) Forms HOME CARE DOCUMENTATION FORM, IMPORTANT VISIT INFORMATION Patient Instructions My [facility] Additional Instructions Please keep your appointment tomorrow as scheduled as well as your appointment next week. Please take your medications as prescribed. Please try and avoid any additional stressors which could exacerbate your anxiety. If you have any new or concerning symptoms, have thoughts of wanting to hurt yourself or anyone else, please call 911 or return to the ER immediately.
[2018-02-23 23:11] VITALS: BP 91/70; PULSE 95; O2SAT 98
== END 2018-02-23 22:55 | disposition home or self-care (01) ==
LOC: EDSEX 21:09 → EDBD 21:09 → C.EDA 21:14
DX: F41.8 Other specified anxiety disorders (principal); R63.4 Abnormal weight loss; F60.3 Borderline personality disorder; Z88.6 Allergy status to analgesic agent; Z79.899 Other long term (current) drug therapy; Z81.8 Family history of other mental and behavioral disorders

== ENCOUNTER 2021-11-22 15:28 | Observation (INO) ==
[2021-11-22] MEDS ORDERED: PROMETHAZINE 12.5 MG/50.5 ML BAG IV STA (16:14)
[2021-11-22] MEDS ORDERED: SODIUM CHLORIDE 0.9% 1000ML 1,000 ML IV SCH ×2 (16:15→17:45)
--- NOTE | 2021-11-22 16:19 | Emergency Department Note ---
History of Present Illness General Chief complaint: Illness Stated complaint: VOMITING, DEHYDRATION, COVID+ Time Seen by Provider: 11/22/21 15:59 Source: patient History of Present Illness Provider complaint: Vomiting Onset (ago): day(s) Location: abdomen Pain Consistency: + constant Maximum Pain Intensity: 6 Quality: + other (Vomiting) Relieved By: + none Exacerbated By: + eating Associated symptoms: + cough, + fever/chills, + malaise and + nausea/vomiting; no chest pain or no shortness of breath This is a 41-year-old male with a history of kidney disease presenting with intractable vomiting. He has been sick for about 2 days. He has had tactile fevers and chills with malaise. He has had a nonproductive cough. He has been vomiting repeatedly for the past 2 days. He was seen here yesterday and treated with antiemetics and fluids. He had multiple imaging studies and blood test. He did test positive for COVID-19. He was discharged home with Zofran but he states that the Zofran is not helping. He continues to vomit whenever he tries to drink anything. He states he drank 6 Gatorade's today but threw them up after each time. He denies any significant abdominal pain other than some soreness from vomiting in the epigastric region. He does state that he had a CT of the abdomen pelvis yesterday which was normal. He does have a cough. He denies any loss of taste or smell or diarrhea. He denies any hematemesis. He denies any chest pain or shortness of breath. He does state that he is vaccinated for COVID but after his second vaccination he developed a heart complication and so he did not get a booster. He does have chronic kidney disease but is not on dialysis. Home Medications Medication Instructions Recorded Confirmed Type quetiapine 25 mg tablet (Seroquel) 25 mg PO BID #180 tab 10/24/21 11/22/21 Rx ondansetron HCl 4 mg tablet 4 mg PO Q8H PRN #20 tab 11/21/21 11/22/21 Rx acetaminophen 500 mg tablet 1,000 mg PO Q6H PRN 11/22/21 11/22/21 History (Tylenol Extra Strength) Allergies Allergy/AdvReac Type Severity Reaction Status Date / Time oxycodone AdvReac Mild ITCHY Verified 11/21/21 16:34 prednisone AdvReac hoover Verified 11/21/21 16:34 Past Med/Surg History Medical History Acute kidney injury Anemia Borderline personality disorder Chronic kidney disease Depression Gout (11/30/12) Hyperparathyroidism IgA nephropathy Surgical History H/O exploratory laparotomy S/P hernia surgery S/P wisdom tooth extraction Family History Denies family history of Ovarian cancer Prostate cancer Myocardial infarction Breast cancer Colorectal cancer Social History Smoking Status: Never smoker Second Hand Exposure: No; Hx Alcohol Use: Yes Alcohol type: beer Alcohol Intake Frequency: Monthly or Less Hx Substance Use: Yes Non-Prescribed Medications: Marijuana Last Used Substance: Days (ago) Last Used Substance Other:: WEEK AGO OR A LITTLE LONGER/TRYING TO HELP ANXIETY Preferred Language: Wolof Communication Ability: Effective Visual Impairment: No Limitations Hearing Ability: Hard of Hearing Line Server Required: No marital status: Current Living Situation: Alone current occupational status: employed current occupation: [employer] Feels Safe at Home: Yes Childhood Exposure to Second-Hand Smoke: No Dental Care, Regularly: Yes Physical Activity Frequency: 3-4 Times per Week Seatbelt Use: always Sunscreen Use: Yes Review of Systems See HPI for pertinent positives & negatives. and A total of 10 systems reviewed and were otherwise negative Physical Exam Vital Signs Vital Signs - 24 hr 11/22/21 15:32 11/22/21 16:14 11/22/21 17:07 Temperature 36.4 C L Temperature Source Temporal Artery Scan Pulse Rate 82 56 L Pulse Rate [Apical] Pulse Rhythm [Apical] Pulse Strength [Apical] Respiratory Rate 16 13 Respiratory Effort / Characteristics Respiratory Depth Respiratory Pattern Blood Pressure 150/99 H 166/107 H Blood Pressure [Right Arm] Blood Pressure Mean 116 126 Blood Pressure Mean [Right Arm] Blood Pressure Position [Right Arm] Pulse Oximetry 94 98 Oxygen Delivery Method Room Air Room Air Sepsis Recent Fever Within 48 Hours Yes Sepsis New/Unexplained Change in Mental Status No Sepsis Action Taken by Nursing No Action Required 11/22/21 17:59 11/22/21 19:12 Temperature Temperature Source Pulse Rate Pulse Rate [Apical] 71 74 Pulse Rhythm [Apical] Regular Regular Pulse Strength [Apical] Normal Respiratory Rate 15 18 Respiratory Effort / Characteristics Non-Labored Spontaneous Non-Labored Spontaneous Respiratory Depth Normal Normal Respiratory Pattern Regular Blood Pressure Blood Pressure [Right Arm] 140/87 148/97 H Blood Pressure Mean Blood Pressure Mean [Right Arm] 104 114 Blood Pressure Position [Right Arm] Semi-fowlers Pulse Oximetry 98 97 Oxygen Delivery Method Room Air Room Air Sepsis Recent Fever Within 48 Hours Sepsis New/Unexplained Change in Mental Status Sepsis Action Taken by Nursing Constitutional: Vital signs reviewed. Eyes: Pupils are equal round reactive to light. Conjunctiva are noninjected. ENT: Pharynx is clear without erythema or exudate. Mucous membranes are dry. Neck supple without meningeal signs. Respiratory: Clear to auscultation bilaterally. Breath sounds are equal bilaterally. Cardiovascular: Regular rate and rhythm. No rubs or gallops. GI: Soft, nondistended and nontender. Bowel sounds are present. Musculoskeletal: No peripheral edema. No lower extremity tenderness. Integumentary: No cyanosis. or jaundice. Neurological: The patient is awake and alert. No focal deficits. Psychiatric: Anxious. Course Administered Medications Sodium Chloride (Nss 1000ml) 1,000 mls @ 125 mls/hr IV .Q8H MADDI Stop: 12/22/21 17:44 Last Admin: 11/22/21 17:58 Dose: 125 mls/hr Documented by: [id number] Discontinued Medications Sodium Chloride (Nss 1000ml) 1,000 mls @ 999 mls/hr IV .Q1H1M MADDI Stop: 11/22/21 17:15 Last Infusion: 11/22/21 17:52 Dose: 0 mls/hr Documented by: [id number] Admin: 11/22/21 16:55 Dose: 999 mls/hr Documented by: [id number] Promethazine HCl (Phenergan) 12.5 mg in 50.5 mls @ 202 mls/hr IV NOW STA Stop: 11/22/21 16:28 Last Infusion: 11/22/21 17:08 Dose: 0 mls/hr Documented by: [id number] Admin: 11/22/21 16:55 Dose: 202 mls/hr Documented by: [id number] Prochlorperazine (Compazine) 2 mls @ 1 mls/min IV ONE ONE Stop: 11/22/21 18:41 Last Admin: 11/22/21 19:14 Dose: 1 mls/min Documented by: [id number] Ondansetron HCl (Ondansetron Inj 2 Mg/Ml 2 Ml Vial) 4 mg IV NOW STA Stop: 11/22/21 17:43 Last Admin: 11/22/21 17:57 Dose: 4 mg Documented by: [id number] Medical Decision Making Differential Diagnosis Dehydration, metabolic derangement, bowel obstruction, electrolyte abnormality, pneumonia, COVID-19 Medical Records Attestation: I reviewed the patient's medical records. I did perform a limited focused review of portions of the patient's old chart on the electronic medical record. The patient was seen here yesterday for vomiting. He had x-rays of his chest and abdomen as well as a CT of his abdomen pelvis. He was diagnosed with COVID and discharged with Zofran after fluid re placement in the emergency department. Home Medications Current Medication List: was personally reviewed by me Laboratory Data Attestation: I reviewed the patient's lab results. Result diagrams: 11/22/21 16:31 11/22/21 16:31 Lab Results 11/22/21 11/22/21 Range/Units 16:31 16:31 WBC 7.81 (4.8-10.8) K/uL RBC 4.41 L (4.7-6.1) M/uL Hgb 13.6 L (14.0-18.0) g/dL Hct 40.5 L (42-52) % MCV 91.8 (80-100) fL MCH 30.8 (25-34) pg MCHC 33.6 (32-36) g/dL RDW Std Deviation 45.9 (36.4-46.3) fL RDW Coeff of Segun 13.7 (11.5-14.5) % Plt Count 223 (130-400) K/uL MPV 11.4 H (7.4-10.4) fL Immature Gran % (Auto) 0.3 % Neut % (Auto) 55.5 % Lymph % (Auto) 29.8 % [place] % (Auto) 14.3 % Eos % (Auto) 0.0 % Baso % (Auto) 0.1 % Neut # (Auto) 4.33 (1.4-6.5) K/uL Lymph # (Auto) 2.33 (1.2-3.4) K/uL [place] # (Auto) 1.12 H (0.11-0.59) K/uL Eos # (Auto) 0.00 (0-0.5) K/uL Baso # (Auto) 0.01 (0-0.2) K/uL Immature Gran # (Auto) 0.02 (0.00-0.02) K/uL Sodium 140 (136-145) mmol/L Potassium 4.7 (3.5-5.1) mmol/L Chloride 107 (98-107) mmol/L Carbon Dioxide 20 L (21-32) mmol/L Anion Gap 13 H (3-11) BUN 37 H (6-23) mg/dl Creatinine 3.74 H (0.6-1.4) mg/dl Est Cr Clr Drug Dosing Not Reportable Est GFR ( Amer) 21.7 ml/min Est GFR (Non-Af Amer) 18.8 ml/min BUN/Creatinine Ratio 9.9 L (10-20) Glucose 89 (70-99(Fasting)) mg/dl Calcium 9.4 (8.5-10.1) mg/dl Total Bilirubin 0.4 (0.2-1.0) mg/dl AST 33 (13-39) U/L ALT 17 (7-52) U/L Alkaline Phosphatase 94 (34-104) U/L Total Protein 6.8 (6.0-8.3) gm/dl Albumin 4.1 (3.4-5.0) gm/dl Globulin 2.7 (2.5-4.0) gm/dl Albumin/Globulin Ratio 1.5 (0.9-2) Lipase 52 (11-82) U/L Imaging Data Radiologist's Impression: Chest X-Ray 11/22/21 16:14 SINGLE VIEW CHEST CLINICAL HISTORY: Covid FINDINGS: 2 AP, portable, upright chest radiographs are compared to study dated 11/21/2021. The cardiomediastinal silhouette is unremarkable. The lungs and pleural spaces are clear. No pneumothorax is seen. The bony thorax is grossly intact. IMPRESSION: No active disease in the chest. ACT 112: Negative or not required by law. Electronically signed by: Leobardo Laird M.D. 11/22/2021 5:39 PM MDM Narrative I did evaluate the patient as noted above. He is presenting with intractable vomiting. He has been taking his Zofran at home without relief. He is very weak and tested positive for COVID yesterday. IV access was established. I did treat him with Phenergan IV and normal saline IV. I did order and personally reviewed the images of the patient's chest x-ray as described above. There is no evidence of pneumonia. I did order and review the patient's blood work as noted in the electronic medical record. CBC demonstrates a white count of 7.8. Hemoglobin is 13.6 and platelet count is 223. Electrolytes are remarkable for a CO2 of 20. His BUN and creatinine are elevated at 37 and 3.74. His creatinine yesterday was 3.59. LFTs are unremarkable. I did reassess the patient. I did discuss the test results with the patient. He is still dry heaving and feeling extremely weak. I did treat him with Zofran 4 mg IV and continued hydration with normal saline IV. He will be hospitalized for further care and evaluation. I did discuss case with the hospitalist and caser up. Impression & Plan Intractable vomiting, Chronic kidney disease, Acute dehydration, COVID-19 Discharge Plan Visit Data Chief Complaint: Illness Stated Complaint: VOMITING, DEHYDRATION, COVID+ ED Provider: Panda Sanford Discharge Problem: Intractable vomiting, Chronic kidney disease, Acute dehydration, COVID-19 Patient Disposition: Being Evaluated by Hospitalist Forms Stand Alone Forms: My [facility] [employer] Prescriptions Prescriptions: No Action quetiapine [Seroquel] 25 mg tablet 25 mg PO BID Qty: 180 RF: 1 ondansetron HCl 4 mg tablet 4 mg PO Q8H PRN (Reason: nausea and vomiting) Qty: 20 RF: 0 acetaminophen [Tylenol Extra Strength] 500 mg Tablet 1,000 mg PO Q6H PRN (Reason: Fever Or Pain) RF: 0 Referrals Referrals: Gilberto Choudhary III, CRNP [Primary Care Provider] - Discharge Problem: Chronic kidney disease Qualifiers: Chronic kidney disease stage: unspecified stage Qualified Code(s): N18.9 - Chronic kidney disease, unspecified
[2021-11-22 16:52] LABS: Basophils # (auto) 0.01 K/uL (0-0.2); Basophils % (auto) 0.1 %; Hematocrit (blood only) 40.5 % (42-52); Hemoglobin 13.6 g/dL (14.0-18.0); Immature Granulocytes # (auto) 0.02 K/uL (0.00-0.02); Immature Granulocytes % (auto) 0.3 %; Lymphocytes # (auto) 2.33 K/uL (1.2-3.4); Lymphocytes % (auto) 29.8 %; Mean Corpuscular Hemoglobin 30.8 pg (25-34); Mean Corpuscular Hgb Conc 33.6 g/dL (32-36); Mean Corpuscular Volume 91.8 fL (80-100); Mean Platelet Volume 11.4 fL (7.4-10.4); Monocytes # (auto) 1.12 K/uL (0.11-0.59); Monocytes % (auto) 14.3 %; Neutrophils # (auto) 4.33 K/uL (1.4-6.5); Neutrophils % (auto) 55.5 %; Platelet Count 223 K/uL (130-400); RDW Coefficient of Variation 13.7 % (11.5-14.5); RDW Standard Deviation 45.9 fL (36.4-46.3); Red Blood Count 4.41 M/uL (4.7-6.1); White Blood Count 7.81 K/uL (4.8-10.8)
[2021-11-22 17:16] LABS: Alanine Aminotransferase 17 U/L (7-52); Albumin Globulin Ratio 1.5 (0.9-2); Albumin Level 4.1 gm/dl (3.4-5.0); Alkaline Phosphatase 94 U/L (34-104); Anion Gap 13 (3-11); Aspartate Aminotransferase 33 U/L (13-39); BUN Creatinine Ratio 9.9 (10-20); Bilirubin,Total 0.4 mg/dl (0.2-1.0); Blood Urea Nitrogen 37 mg/dl (6-23); Calcium 9.4 mg/dl (8.5-10.1); Carbon Dioxide 20 mmol/L (21-32); Chloride 107 mmol/L (98-107); Est GFR (African American) 21.7 ml/min; Est GFR (Non-African American) 18.8 ml/min; Globulin 2.7 gm/dl (2.5-4.0); Glucose 89 mg/dl (70-99(Fasting)); Lipase 52 U/L (11-82); Potassium 4.7 mmol/L (3.5-5.1); Sodium 140 mmol/L (136-145); Total Protein 6.8 gm/dl (6.0-8.3)
--- NOTE | 2021-11-22 17:41 | XRay Report ---
SINGLE VIEW CHEST CLINICAL HISTORY: Covid FINDINGS: 2 AP, portable, upright chest radiographs are compared to study dated 11/21/2021. The cardio mediastinal silhouette is unremarkable. The lungs and pleural spaces are clear. No pneumothorax is se en. The bony thorax is grossly intact. IMPRESSION: No active disease in the chest. ACT 112: Negative or not required by law. Electronically signed by: Leobardo Laird M.D. 11/22/2021 5:39 PM
[2021-11-22] MEDS ORDERED: ONDANSETRON INJ 2 MG/ML 2 ML VIAL IV STA (17:42)
--- NOTE | 2021-11-22 18:20 | History & Physical Report ---
Date of Service November 22, 2021 Assessment & Plan (1) Nausea & vomiting: Plan: Secondary to viral gastroenteritis, intractable, persists after receiving IV Zofran and IV Phenergan in the ER CT abdomen/pelvis from 11/21 is negative Abdomen is benign on examination With resulting dehydration and acute kidney injury -Admit to medical/surgical unit on COVID isolation precautions -Continue with IV Zofran as needed and add IV Compazine as needed -Continue hydration with IV fluids with LR at 100 and mils per hour -Keep n.p.o. -Follow CBC, CMP, magnesium, phosphorus, replace electrolytes as needed (2) COVID-19: Plan: With 2 days of symptoms of body aches, cough, chills, nausea/vomiting, nasal congestion Not hypoxic, chest x-ray clear With chills here but no fever He had 2 doses of mRNA vaccine, but had chest pains after the second dose-no official diagnosis of myocarditis, but was hesitant to get a booster vaccine because of this -Treating nausea/vomiting as above -He cannot have Remdesevir due to his kidney disease -Does not meet criteria for dexamethasone -Can give IV Tylenol as needed for chills and fevers -Hydrating with IV fluids for nausea/vomiting -Follow CBC, CMP, CRP in the morning -Supplemental O2 as needed for pulse ox less than 90% (3) ROBERT (acute kidney injury): Plan: Creatinine up to 3.74 from baseline of 2.6 He has a history of IgA nephropathy for 20 years and previously followed with [facility] nephrology, but due to insurance reasons, has made the transition to [facility] providers He has not yet seen a [facility] communication assistant With 3+ proteinuria on urinalysis Potassium normal, serum bicarbonate mildly low at 20, blood pressures are normal to mildly elevated, not volume overloaded and is in fact hypovolemic from nausea/vomiting -Hydrate with IV fluids -Follow BMP in the morning -Consult nephrology to see him while here -Check iron studies, B12, folate for anemia -Renally dose medications, avoid nephrotoxins (4) Metabolic acidosis: Plan: Secondary to dehydration and acute kidney injury Follow BMP (5) Chronic kidney disease: Plan: 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 and vomiting Plan: DVT prophylaxis-SCDs, SQ heparin Disposition-admit to medical/surgical unit on observation History of Present Illness Chief Complaint: Nausea/vomiting Primary Care Provider: Gilberto Choudhary, III, LEONIDAS This patient is a 41-year-old male with a history of CKD stage IV, IgA nephropathy, hyperparathyroidism, anemia of chronic kidney disease, anxiety/depression and borderline personality disorder, gout, hyperlipidemia, who presents to the ER for the second time in the last 2 days with nause a/vomiting, cough, chills, aches. He was seen in the ER yesterday and tested positive for COVID-19. He is fully vaccinated. He had a CT abdomen/pelvis yesterday that only showed trace free fluid in the pelvis but no infectious or inflammatory findings. He was discharged home with oral Zofran but was not able to keep anything down at home. He returns to the ER today with intractable nausea/vomiting. He has some abdominal pain in the central region only with vomiting. No diarrhea or bowel movement at all in a couple of days. He is just not able to keep anything down. He is making urine. Despite receiving Zofran and Phenergan in the ER and fluids, he was still actively dry heaving when I saw him. He is having chills as well. Denies shortness of breath or chest pains. He does have nasal congestion and a dry mouth. On labs, his CBC was fairly unremarkable except for a mild chronic anemia. His creatinine however has been rising from his baseline of 2.6 and is now up to 3.74, with BUN elevated at 37. His serum bicarbonate was low at 20 with an anion gap of 13. LFTs were normal. Lipase normal. Urinalysis without evidence of infection but did have 3+ protein. He was given IV Phenergan, 2 L of normal saline, and IV Zofran. He will be admitted for intractable nausea/vomiting secondary to COVID-19 with resulting acute kidney injury Allergies Allergy/AdvReac Type Severity Reaction Status Date / Time oxycodone AdvReac Mild ITCHY Verified 11/21/21 16:34 prednisone AdvReac hoover Verified 11/21/21 16:34 Home Medications Medication Instructions Recorded Confirmed Type quetiapine 25 mg tablet (Seroquel) 25 mg PO BID #180 tab 10/24/21 11/21/21 Rx ondansetron HCl 4 mg tablet 4 mg PO Q8H PRN #20 tab 11/21/21 Rx acetaminophen 500 mg tablet 1,000 mg PO Q6H PRN 11/22/21 11/22/21 History (Tylenol Extra Strength) Past Med/Surg History Medical History Acute kidney injury Anemia Borderline personality disorder Chronic kidney disease Depression Gout (11/30/12) Hyperparathyroidism IgA nephropathy Surgical History H/O exploratory laparotomy S/P hernia surgery S/P wisdom tooth extraction Family History Denies family history of Ovarian cancer Prostate cancer Myocardial infarction Breast cancer Colorectal cancer Social History Smoking Status: Never smoker Second Hand Exposure: No; Hx Alcohol Use: Yes Alcohol type: beer Alcohol Intake Frequency: Monthly or Less Hx Substance Use: Yes Non-Prescribed Medications: Marijuana Last Used Substance: Days (ago) Last Used Substance Other:: WEEK AGO OR A LITTLE LONGER/TRYING TO HELP ANXIETY Preferred Language: Lao Communication Ability: Effective Visual Impairment: No Limitations Hearing Ability: Hard of Hearing Black And White Printer Operator Required: No marital status: Current Living Situation: Alone current occupational status: employed current occupation: REST COMPUTER SYSTEMS TECHNICIAN [employer] Feels Safe at Home: Yes Childhood Exposure to Second-Hand Smoke: No Dental Care, Regularly: Yes Physical Activity Frequency: 3-4 Times per Week Seatbelt Use: always Sunscreen Use: Yes Review of Systems Review of Systems: All systems reviewed & are unremarkable except as noted in HPI & below Physical Exam Constitutional: WD/WN, vitals as above Eyes: + anicteric sclerae ENMT: external ear and nose normal, oropharynx normal Neck: trachea midline, no thyromegaly Respiratory: normal respiratory effort, lungs clear to auscultation Cardiovascular: RRR, no murmur, no edema Chest (Breasts): Chest: normal inspection of chest Gastrointestinal (Abdomen): normal bowel sounds, soft, nontender, no hepatosplenomegaly Musculoskeletal: Extremities: extremities normal to inspection; no cyanosis and no clubbing Skin: no rashes, warm and dry Neurologic: moves all extremities and awake; no focal motor deficits Psychiatric: A+Ox3, euthymic affect Lymphatic: no lymphedema Results & Data Results & Data ([facility]) Vital Signs (Past 12 Hours) Vital Signs Temp Pulse Pulse Resp BP BP Pulse Ox 11/22/21 17:59 71 15 140/87 98 11/22/21 17:07 56 L 13 166/107 H 11/22/21 16:14 98 11/22/21 15:32 36.4 C L 82 16 150/99 H 94 Laboratory Results 11/22/21 11/22/21 Range/Units 16:31 16:31 WBC 7.81 (4.8-10.8) K/uL RBC 4.41 L (4.7-6.1) M/uL Hgb 13.6 L (14.0-18.0) g/dL Hct 40.5 L (42-52) % MCV 91.8 (80-100) fL MCH 30.8 (25-34) pg MCHC 33.6 (32-36) g/dL RDW Std Deviation 45.9 (36.4-46.3) fL RDW Coeff of Segun 13.7 (11.5-14.5) % Plt Count 223 (130-400) K/uL MPV 11.4 H (7.4-10.4) fL Immature Gran % (Auto) 0.3 % Neut % (Auto) 55.5 % Lymph % (Auto) 29.8 % [place] % (Auto) 14.3 % Eos % (Auto) 0.0 % Baso % (Auto) 0.1 % Neut # (Auto) 4.33 (1.4-6.5) K/uL Lymph # (Auto) 2.33 (1.2-3.4) K/uL [place] # (Auto) 1.12 H (0.11-0.59) K/uL Eos # (Auto) 0.00 (0-0.5) K/uL Baso # (Auto) 0.01 (0-0.2) K/uL Immature Gran # (Auto) 0.02 (0.00-0.02) K/uL Sodium 140 (136-145) mmol/L Potassium 4.7 (3.5-5.1) mmol/L Chloride 107 (98-107) mmol/L Carbon Dioxide 20 L (21-32) mmol/L Anion Gap 13 H (3-11) BUN 37 H (6-23) mg/dl Creatinine 3.74 H (0.6-1.4) mg/dl Est Cr Clr Drug Dosing Not Reportable Est GFR ( Amer) 21.7 ml/min Est GFR (Non-Af Amer) 18.8 ml/min BUN/Creatinine Ratio 9.9 L (10-20) Glucose 89 (70-99(Fasting)) mg/dl Calcium 9.4 (8.5-10.1) mg/dl Total Bilirubin 0.4 (0.2-1.0) mg/dl AST 33 (13-39) U/L ALT 17 (7-52) U/L Alkaline Phosphatase 94 (34-104) U/L Total Protein 6.8 (6.0-8.3) gm/dl Albumin 4.1 (3.4-5.0) gm/dl Globulin 2.7 (2.5-4.0) gm/dl Albumin/Globulin Ratio 1.5 (0.9-2) Lipase 52 (11-82) U/L Diagnostic Findings Chest X-Ray 11/22/21 16:14 SINGLE VIEW CHEST CLINICAL HISTORY: Covid FINDINGS: 2 AP, portable, upright chest radiographs are compared to study dated 11/21/2021. The cardiomediastinal silhouette is unremarkable. The lungs and pleural spaces are clear. No pneumothorax is seen. The bony thorax is grossly intact. IMPRESSION: No active disease in the chest. ACT 112: Negative or not required by law. Electronically signed by: Leobardo Laird M.D. 11/22/2021 5:39 PM Code Status & VTE Plan Code Status Full code VTE Prophylaxis Plan VTE Prophylaxis will be ordered: Yes PG Care Time/CCT Total # of Minutes Spent Total Time Spent with Patient: Total time spent is greater than 50% in coordination of care (as documented) at patient's floor/unit and/or counseling patient: Coding Level of Care Code INT OBSERVATION CARE 70M LVL 3 Diagnoses Nausea & vomiting R11.2 Vomiting type: unspecified COVID-19 U07.1 Chronic kidney disease N18.9 Chronic kidney disease stage: unspecified stage IgA nephropathy N02.8 Depression F32.9 Anemia D64.9 Hyperparathyroidism E21.3 ROBERT (acute kidney injury) N17.9 Metabolic acidosis E87.2 (1) Chronic kidney disease Chronic kidney disease stage: unspecified stage Qualified Code(s): N18.9 - Chronic kidney disease, unspecified (2) Nausea & vomiting Vomiting type: unspecified Qualified Code(s): R11.2 - Nausea with vomiting, unspecified
[2021-11-22] MEDS ORDERED: PROCHLORPERAZINE 2 ML IV ONE (18:40)
[2021-11-23] MEDS ORDERED: ONDANSETRON INJ 2 MG/ML 2 ML VIAL IV PRN (00:47)
[2021-11-23] MEDS ORDERED: PROCHLORPERAZINE 10 MG in SYRINGE 8 ML IV PRN (00:47)
[2021-11-23] MEDS ORDERED: ACETAMINOPHEN 1000 MG/100 ML IV IV PRN (00:47)
[2021-11-23] MEDS: LACTATED RINGER'S 1,000 ML IV SCH ×3 (01:40→19:39)
[2021-11-23 06:05] LABS: Basophils # (auto) 0.01 K/uL (0-0.2); Basophils % (auto) 0.1 %; Hematocrit (blood only) 37.8 % (42-52); Hemoglobin 12.4 g/dL (14.0-18.0); Immature Granulocytes # (auto) 0.01 K/uL (0.00-0.02); Immature Granulocytes % (auto) 0.1 %; Lymphocytes % (auto) 40.6 %; Mean Corpuscular Hemoglobin 30.1 pg (25-34); Mean Corpuscular Hgb Conc 32.8 g/dL (32-36); Mean Corpuscular Volume 91.7 fL (80-100); Mean Platelet Volume 11.4 fL (7.4-10.4); Monocytes # (auto) 1.08 K/uL (0.11-0.59); Monocytes % (auto) 15.7 %; Neutrophils % (auto) 43.5 %; Platelet Count 184 K/uL (130-400); RDW Coefficient of Variation 13.8 % (11.5-14.5); RDW Standard Deviation 46.1 fL (36.4-46.3); Red Blood Count 4.12 M/uL (4.7-6.1)
[2021-11-23] MEDS: HEPARIN SOD 5,000 UNIT/0.5 ML VIAL SQ SCH ×3 (06:19→21:22)
[2021-11-23 06:29] LABS: Albumin Globulin Ratio 1.5 (0.9-2); Albumin Level 3.4 gm/dl (3.4-5.0); BUN Creatinine Ratio 9.4 (10-20); Bilirubin,Total 0.4 mg/dl (0.2-1.0); C Reactive Protein 0.55 mg/dl (0-0.5); Calcium 8.5 mg/dl (8.5-10.1); Creatinine Clr Calc Pharmacy 26.1 ml/min; Est GFR (African American) 24.2 ml/min; Est GFR (Non-African American) 20.9 ml/min; Globulin 2.2 gm/dl (2.5-4.0); Magnesium 1.6 mg/dl (1.7-2.4); Phosphorus 4.2 mg/dl (2.5-4.9); Potassium 4.4 mmol/L (3.5-5.1); Total Protein 5.6 gm/dl (6.0-8.3)
[2021-11-23 06:53] LABS: Folate (Folic Acid) 10.9 ng/ml (>5.38)
[2021-11-23 07:09] LABS: Ferritin 101.8 ng/ml (8-388)
[2021-11-23] MEDS ORDERED: COUGH DROP (SUGAR FREE) LOZ 24 LOZ/1 BOX BUCCAL ONE (09:02)
--- NOTE | 2021-11-23 10:55 | Nephrology Consultation ---
Date of Consultation November 23, 2021 Assessment & Plan (1) ROBERT (acute kidney injury): Prerenal from dehydration. Improvement noted with IVF. Non-oliguric. Volume status improving. Electrolytes acceptable. No emergent indication for dialysis. Medications appropriate for kidney dysfunction. No obstruction on imaging. Urine microscopy acellular. (2) Chronic kidney disease: CKD IV A1. Reported history of IgA nephropathy per prior biopsy. No his tory of immune modifying therapy. Close outpatient follow up will be required. Ultimately, Anoop may benefit from restaging with a repeat biopsy. (3) IgA nephropathy: Records from Dr. Boland requested for review. (4) Metabolic acidosis: NSS switched to LR. (5) Anemia: Anemia of CKD + PHUONG. Venofer 200 mg IV daily ordered today. Hgb >11; RA therapy held. (6) Hyperparathyroidism: Serum calcium ~10 on presentation. Vitamin D replacement held for now. Consider D3 on discharge. (7) COVID-19: Remdesevir contraindicated given kidney dysfunction. History of Present Illness Reason for Consultation: CKD, IgA nephropathy Requesting Physician: Nikkie Patterson MD Attending Physician: Nikkie Patterson MD History of Present Illness Mr. Anoop Brandon is a 41-year-old male with CKD attributed to IgA nephropathy. Creatinine in 2018 was 2.3 mg/dL. Creatinine 2.5 mg/dL in 2019. Laboratory studies from 2 ER visits in July 2021 are available for review, creatinine was initially 2.6 mg/dL and subsequently 3.6 mg/dL. No proteinuria on testing in July 2021. Anoop previously followed in the nephrology clinic with Dr. Reginaldo Boland. The diagnosis of IgA nephropathy was reportedly made based on the findings of a percutaneous kidney biopsy performed at [facility] ~15 years ago. Anoop reports that Dr. Boland performed the biopsy as a fellow. At that time, no additional treatment was provided. Anoop states that he has never required specific treatment for the condition but was advised that there would likely be progression. He has a twin brother who has expressed interest in acting as a living kidney donor if needed. However, Anoop has notably struggled with accepting the diagnosis and admits to poor follow up. He believes manifestations of the disease where initially appreciated during a hospitalization with severe GI issues at [facility] when he was 24 years old. He suffered a notable episode of ROBERT during the admission following an exploratory laparotomy. Complications of his CKD including sPTH and anemia of CKD. He has not had issues with fluid retention or edema. CT scan of the abdomen and pelvis obtained yesterday demonstrates kidney with at least moderate symmetric cortical atrophy. There is no evidence of obstruction. UA now demonstrating 3+ protein, +blood with acellular microscopy. Anoop presented to [facility] yesterday with nausea, vomiting, and cough. He is COVID+. He had presented to the ER the prior day and been discharged home. He was admitted yesterday with notable dehydration, intractable vomiting, and associated dehydration. IV saline was provided in the ER and IVF continued since admission. Anoop is non-oliguric. He reports improvement in symptoms this AM. Unfortunately, he remains unable to tolerate much PO. No fevers or chills. No respiratory symptoms. 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 He denies any known sick contacts. He is fully vaccinated. Medical history is also notable for OMEGA/depression, borderline personality disorder, gout, and hyperlipidemia. No notable NSAID use. Allergies Allergy/AdvReac Type Severity Reaction Status Date / Time oxycodone AdvReac Mild ITCHY Verified 11/21/21 16:34 prednisone AdvReac hoover Verified 11/21/21 16:34 Home Medications Medication Instructions Recorded Confirmed Type quetiapine 25 mg tablet (Seroquel) 25 mg PO BID #180 tab 10/24/21 11/22/21 Rx ondansetron HCl 4 mg tablet 4 mg PO Q8H PRN #20 tab 11/21/21 11/22/21 Rx acetaminophen 500 mg tablet 1,000 mg PO Q6H PRN 11/22/21 11/22/21 History (Tylenol Extra Strength) Patient History Medical History Acute kidney injury Anemia Borderline personality disorder Chronic kidney disease Depression Gout (11/30/12) Hyperparathyroidism IgA nephropathy Surgical History H/O exploratory laparotomy S/P hernia surgery S/P wisdom tooth extraction Family History Denies family history of Ovarian cancer Prostate cancer Myocardial infarction Breast cancer Colorectal cancer Social History Smoking Status: Never smoker Second Hand Exposure: No; Do You Dip or Chew Tobacco: No; Hx Alcohol Use: No Hx Substance Use: Yes Non-Prescribed Medications: Marijuana Last Used Substance: Days (ago) Last Used Substance Other:: 1.5 weeks ago last time used; pt reports using marijuana ocasionally Preferred Language: South Korean Communication Ability: Effective Visual Impairment: No Limitations Hearing Ability: Hard of Hearing Remote Sensing Analyst Required: No Beliefs That Will Affect Care: None marital status: Current Living Situation: Alone current occupational status: employed 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[employer] Other Information That Helps Us Care for You: No Feels Safe at Home: Yes Safety Concerns: Feels Safe At This Time Childhood Exposure to Second-Hand Smoke: No Dental Care, Regularly: Yes Physical Activity Frequency: 3-4 Times per Week Seatbelt Use: always Sunscreen Use: Yes Assistive Devices: Contacts and Glasses Assistive Devices Comment: contacts in eyes; glasses at home Review of Systems Constitutional: no fever, no chills, no weight loss, no weight gain and no problem reported Eyes: no problem reported Ear, Nose, Mouth, Throat: no problem reported Respiratory: + cough; no dyspnea, no dyspnea on exertion and no problem reported Cardiovascular: no chest pain, no palpitations, no edema and no problem reported Gastrointestinal: + nausea and + vomiting; no abdominal pain and no diarrhea/loose stools Musculoskeletal: no problem reported Integumentary: no problem reported Neurologic: no problem reported Psychiatric: no problem reported Endocrine: no problem reported Hematologic / Lymphatic: no problem reported Physical Exam Constitutional: well developed; no acute distress Eyes: no scleral abnormality and no corneal abnormality ENMT: Mouth: no oral mucosal abnormality and oral mucous membranes not dry Neck: normal visual inspection and trachea midline Respiratory: normal respiratory effort Auscultation: lungs clear to auscultation bilaterally Cardiovascular: Rate/Rhythm: regular rate Heart Sounds: normal S1 and normal S2 Extremities: no edema Musculoskeletal: Extremities: no cyanosis and no clubbing Skin: normal turgor; no lesions Neurologic: Motor/Sensory: no tremor and no asterixis Psychiatric: Orientation: alert and oriented x 3 Results & Data ([facility]) Vital Signs (Past 12 Hours) Vital Signs Temp Pulse Pulse Pulse Resp BP BP 11/23/21 09:29 37.1 C 62 18 141/78 H 11/23/21 00:00 37.2 C 62 17 146/82 H 11/22/21 23:34 87 20 128/90 11/22/21 23:30 87 20 128/90 Pulse Ox 11/23/21 09:29 97 11/23/21 00:00 96 11/22/21 23:34 97 11/22/21 23:30 97 Laboratory Results Laboratory Results - last 24 hr 11/22/21 11/22/21 11/23/21 16:31 16:31 05:23 WBC 7.81 RBC 4.41 L Hgb 13.6 L Hct 40.5 L MCV 91.8 MCH 30.8 MCHC 33.6 RDW Std Deviation 45.9 RDW Coeff of Segun 13.7 Plt Count 223 MPV 11.4 H Immature Gran % (Auto) 0.3 Neut % (Auto) 55.5 Lymph % (Auto) 29.8 [place] % (Auto) 14.3 Eos % (Auto) 0.0 Baso % (Auto) 0.1 Neut # (Auto) 4.33 Lymph # (Auto) 2.33 [place] # (Auto) 1.12 H Eos # (Auto) 0.00 Baso # (Auto) 0.01 Immature Gran # (Auto) 0.02 Sodium 140 141 Potassium 4.7 4.4 Chloride 107 112 H Carbon Dioxide 20 L 20 L Anion Gap 13 H 9 BUN 37 H 32 H Creatinine 3.74 H 3.42 H D Est Cr Clr Drug Dosing Not Reportable 26.1 Est GFR ( Amer) 21.7 24.2 Est GFR (Non-Af Amer) 18.8 20.9 BUN/Creatinine Ratio 9.9 L 9.4 L Glucose 89 87 Calcium 9.4 8.5 Phosphorus 4.2 Magnesium 1.6 L Iron 30 L TIBC 218 L Unsaturated IBC 188 Transferrin % Sat 14 L Ferritin 101.8 Total Bilirubin 0.4 0.4 AST 33 27 ALT 17 14 Alkaline Phosphatase 94 75 C-Reactive Protein 0.55 H Total Protein 6.8 5.6 L Albumin 4.1 3.4 Globulin 2.7 2.2 L Albumin/Globulin Ratio 1.5 1.5 Lipase 52 Vitamin B12 Folate 11/23/21 11/23/21 05:23 05:23 WBC 6.90 RBC 4.12 L Hgb 12.4 L Hct 37.8 L MCV 91.7 MCH 30.1 MCHC 32.8 RDW Std Deviation 46.1 RDW Coeff of Segun 13.8 Plt Count 184 MPV 11.4 H Immature Gran % (Auto) 0.1 Neut % (Auto) 43.5 Lymph % (Auto) 40.6 [place] % (Auto) 15.7 Eos % (Auto) 0.0 Baso % (Auto) 0.1 Neut # (Auto) 3.00 Lymph # (Auto) 2.80 [place] # (Auto) 1.08 H Eos # (Auto) 0.00 Baso # (Auto) 0.01 Immature Gran # (Auto) 0.01 Sodium Potassium Chloride Carbon Dioxide Anion Gap BUN Creatinine Est Cr Clr Drug Dosing Est GFR ( Amer) Est GFR (Non-Af Amer) BUN/Creatinine Ratio Glucose Calcium Phosphorus Magnesium Iron TIBC Unsaturated IBC Transferrin % Sat Ferritin Total Bilirubin AST ALT Alkaline Phosphatase C-Reactive Protein Total Protein Albumin Globulin Albumin/Globulin Ratio Lipase Vitamin B12 333 Folate 10.90 PG Care Time/CCT Total # of Minutes Spent Total Time Spent with Patient: Total time spent is greater than 50% in coordination of care (as documented) at patient's floor/unit and/or counseling patient: Coding Level of Care Code 11386 Inpt Consult Level 5 Diagnoses Metabolic acidosis E87.2 ROBERT (acute kidney injury) N17.9 Anemia D64.9 Hyperparathyroidism E21.3 COVID-19 U07.1 Chronic kidney disease N18.9 Chronic kidney disease stage: unspecified stage IgA nephropathy N02.8 (1) Chronic kidney disease Chronic kidney disease stage: unspecified stage Qualified Code(s): N18.9 - Chronic kidney disease, unspecified
[2021-11-23] MEDS: IRON SUCROSE 200 MG in 0.9 % SODIUM CHLORIDE 100 ML IV SCH (12:35)
--- NOTE | 2021-11-23 16:51 | Hospitalist Progress Note ---
Date of Service November 23, 2021 Assessment & Plan (1) Nausea & vomiting: Plan: Secondary to viral gastroenteritis, intractable, persists after receiving IV Zofran and IV Phenergan in the ER with resulting dehydration and ROBERT -CT abdomen/pelvis from 11/21 is negative -Abdomen is benign on examination -Continue COVID isolation precautions -IV Zofran as needed and add IV Compazine as needed -Pt has been NPO since admission, tolerating ice chips and some sips of water -Will advance diet today to clear liquids (for dinner), if tolerates, advance to BRAT in AM (2) COVID-19: Plan: With 2 days of symptoms of body aches, cough, chills, nausea/vomiting, nasal congestion, not hypoxic, chest x-ray clear He had 2 doses of mRNA vaccine, but had chest pains after the second dose-no official diagnosis of myocarditis, but was hesitant to get a booster vaccine because of this -Treating nausea/vomiting as above -He cannot have Remdesevir due to his kidney disease -Does not meet criteria for dexamethasone -Ordered IV APAP while NPO for aches/fever, can change back to oral -Hydrating with IV fluids for nausea/vomiting -Supplemental O2 as needed for pulse ox less than 90% -Maintain isolation precautions (3) ROBERT (acute kidney injury): Plan: He has a history of IgA nephropathy for 20 years and previously followed with [facility] nephrology, but due to insurance reasons, has made the transition to [facility] providers -Creatinine up to 3.74 from baseline of 2.6 -With 3+ proteinuria on urinalysis -Potassium normal, serum bicarbonate mildly low at 20, blood pressures are normal to mildly elevated, not volume overloaded and is in fact hypovolemic from nausea/vomiting -Continue IVF--on LR -Consult nephrology to see him while here -Check iron studies, B12, folate for anemia -Renally dose medications, avoid nephrotoxins -Creatinine slowly downtrending, repeat BMP in AM (4) Metabolic acidosis: Plan: Secondary to dehydration and acute kidney injury Follow BMP (5) Chronic kidney disease: Plan: 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 (6) Anemia: Plan: Hemoglobin mildly low at 13.6, normocytic, suspect hemoconcentrated d/t dehydration -Ordered iron studies, B12, folate in the morning replace as needed -Likely secondary to anemia of chronic kidney disease (7) Hyperparathyroidism: Plan: With elevated intact PTH of 400 on recent labs -Most likely secondary to chronic kidney disease stage IV -Follow with nephrology (8) Depression: Plan: -Stable on Seroquel which was held d/t NPO status -Resume Seroquel as prescribed (9) Accelerated hypertension: Plan: -BP accelerated -- 140-160s systolic, not on any antihypertensives -Monitor and will consider adding Hydralazine orally vs. o/p follow up Plan: Replace Magnesium (Mag Yonatan 1g x2 for mag of 1.6) likely secondary to GI losses. Repeat level in AM. Advance diet as above, repeat labs in AM. Anticipate d/c home in the next 24-48 hours Plan d/w Dr. Matthew Admission and Anticipated Discharge Date Admission Date: November 22, 2021 Subjective Pt seen on rounds this afternoon. He is resting comfortably in bed. Reports that he still feels lousy but denies further vomiting. No nausea at present. Denies abd pain. Still has some diarrhea. Voiding w/o issue. Denies fever, chills. Still has a mild cough that he is using OTC lozenges for. No cp or dyspnea. Review of Systems Review of Systems: All systems reviewed and are unremarkable except as noted in HPI and below. Denies fever, chills, fatigue, headache, nasal congestion, sore throat, chest pain, shortness of breath, palpitations, orthopnea, PND, abdominal pain, n/v, constipation, dysuria, hematuria, frequency, back pain, joint pain or swelling, easy bruising or bleeding, skin lesions or rashes. Physical Exam Physical Exam: GENERAL: 41 yo well-developed, well-nourished WM. Appears ill but nontoxic. NAD. LUNGS: Clear to auscultation bilaterally. No W/R/R. CARDIOVASCULAR: Regular rate and rhythm. ABDOMEN: Soft, non-tender and non-distended. BS normal x 4 quad. EXTREMITIES: No edema. Non-tender. Peripheral pulses +2/4. NEUROLOGIC: A&O x3. PSYCHIATRIC: Cooperative. Appropriate mood and affect. SKIN: Warm, dry, intact. No rashes or lesions. Results & Data Results & Data ([facility]) Vital Signs (Past 12 Hours) Vital Signs Temp Pulse Resp BP Pulse Ox 11/23/21 15:10 37.1 C 60 17 164/83 H 98 11/23/21 09:29 37.1 C 62 18 141/78 H 97 Laboratory Results 11/23/21 05:23 11/23/21 05:23 PG Care Time/CCT Total # of Minutes Spent Total Time Spent with Patient: Total time spent is greater than 50% in coordination of care (as documented) at patient's floor/unit and/or counseling patient: Coding Level of Care Code 59127 Subseq Obs Care Lvl 2 Diagnoses Nausea & vomiting R11.2 Vomiting type: unspecified COVID-19 U07.1 ROBERT (acute kidney injury) N17.9 Metabolic acidosis E87.2 Chronic kidney disease N18.9 Chronic kidney disease stage: unspecified stage Anemia D64.9 Hyperparathyroidism E21.3 Depression F32.9 Accelerated hypertension I10 (1) Nausea & vomiting Vomiting type: unspecified Qualified Code(s): R11.2 - Nausea with vomiting, unspecified (2) Chronic kidney disease Chronic kidney disease stage: unspecified stage Qualified Code(s): N18.9 - Chronic kidney disease, unspecified
[2021-11-23] MEDS: MAGNESIUM SULFATE / D5W 1 GM/100 ML BAG IV SCH ×2 (17:48→19:29)
[2021-11-23] MEDS: QUEtiapine FUMARATE 25 MG TABLET PO SCH (21:22)
[2021-11-23] MEDS: ACETAMINOPHEN 325 MG TAB PO PRN (21:22)
[2021-11-24] MEDS: LACTATED RINGER'S 1,000 ML IV SCH (05:40)
[2021-11-24 08:17] LABS: BUN Creatinine Ratio 10.2 (10-20); Calcium 8.3 mg/dl (8.5-10.1); Creatinine Clr Calc Pharmacy 29.3 ml/min; Est GFR (African American) 27.8 ml/min; Potassium 4.2 mmol/L (3.5-5.1)
[2021-11-24] MEDS: ACETAMINOPHEN 325 MG TAB PO PRN (08:35)
[2021-11-24] MEDS: HEPARIN SOD 5,000 UNIT/0.5 ML VIAL SQ SCH (08:35)
[2021-11-24] MEDS: QUEtiapine FUMARATE 25 MG TABLET PO SCH (08:35)
--- NOTE | 2021-11-24 10:32 | Nephrology Progress Note ---
Date of Service November 24, 2021 Assessment & Plan (1) ROBERT (acute kidney injury): Plan: Prerenal from dehydration. Improvement noted with IVF. Non-oliguric. Volume status acceptable. IVF can be stopped once current bag complete or upon hospital discharge. Electrolytes acceptable. No emergent indication for dialysis. Medications appropriate for kidney dysfunction. Close outpatient follow up encouraged. Repeat a metabolic profile in 1 week. Follow up with me in the nephrology clinic will be arranged in 2 weeks. (2) Chronic kidney disease: Plan: CKD IV A1. Reported history of IgA nephropathy. Close outpatient follow up will be required. I have requested records from Dr. Boland for review. (3) IgA nephropathy: Plan: No additional treatment required at this time. Goals of care reviewed. (4) Anemia: Plan: Anemia of CKD + PHUONG. Venofer 200 mg IV daily while inpatient. Additional therapy will be coordinated as needed after follow up in the nephrology clinic. (5) Hyperparathyroidism: Plan: Start D3 2000 units daily on discharge. Follow up in the nephrology clinic as outpatient. (6) COVID-19: Plan: Symptoms improving. As volume status improves, Anoop is stable for discharge with close outpatient follow up from a nephrology standpoint. Admission and Anticipated Discharge Date Admission Date: November 22, 2021 Subjective No acute events overnight. Nausea improving. Appetite improved. Denies GI pain. Diarrhea resolving. No fevers or chills. Hoping to be discharged home later today. Review of Systems Review of Systems: All systems reviewed & are unremarkable except as noted in HPI & below Physical Exam Constitutional: well developed; no acute distress Eyes: no scleral abnormality and no corneal abnormality ENMT: Mouth: no oral mucosal abnormality and oral mucous membranes not dry Neck: normal visual inspection and trachea midline Respiratory: normal respiratory effort Auscultation: lungs clear to auscultation bilaterally Cardiovascular: Rate/Rhythm: regular rate Heart Sounds: normal S1 and normal S2 Extremities: no edema Musculoskeletal: Extremities: no cyanosis and no clubbing Skin: normal turgor; no lesions Neurologic: Motor/Sensory: no tremor and no asterixis Psychiatric: Orientation: alert and oriented x 3 Results & Data ([facility]) Laboratory Results Laboratory Results - last 24 hr 11/24/21 07:16 Sodium 139 Potassium 4.2 Chloride 109 H Carbon Dioxide 21 Anion Gap 9 BUN 31 H Creatinine 3.05 H D Est Cr Clr Drug Dosing 29.3 Est GFR ( Amer) 27.8 Est GFR (Non-Af Amer) 24.0 BUN/Creatinine Ratio 10.2 Glucose 78 Calcium 8.3 L Magnesium 2.0 PG Care Time/CCT Total # of Minutes Spent Total Time Spent with Patient: Total time spent is greater than 50% in coordination of care (as documented) at patient's floor/unit and/or counseling patient: Coding Level of Care Code 15664 Subseq Hosp Care Lvl 3 Diagnoses ROBERT (acute kidney injury) N17.9 Chronic kidney disease N18.9 Chronic kidney disease stage: unspecified stage IgA nephropathy N02.8 Anemia D64.9 Hyperparathyroidism E21.3 COVID-19 U07.1 (1) Chronic kidney disease Chronic kidney disease stage: unspecified stage Qualified Code(s): N18.9 - Chronic kidney disease, unspecified
[2021-11-24] MEDS ORDERED: CYANOCOBALAMIN 1000 MCG/ML VIAL IM STA (11:06)
--- NOTE | 2021-11-24 11:12 | Discharge Summary ---
Date of Service November 24, 2021 Admission HPI Per Admitting Provider This patient is a 41-year-old male with a history of CKD stage IV, IgA nephropathy, hyperparathyroidism, anemia of chronic kidney disease, anxiety/depression and borderline personality disorder, gout, hyperlipidemia, who presents to the ER for the second time in the last 2 days with nausea/vomiting, cough, chills, aches. He was seen in the ER yesterday and tested positive for COVID-19. He is fully vaccinated. He had a CT abdomen/pelvis yesterday that only showed trace free fluid in the pelvis but no infectious or inflammatory findings. He was discharged home with oral Zofran but was not able to keep anything down at home. He returns to the ER today with intractable nausea/vomiting. He has some abdominal pain in the central region only with vomiting. No diarrhea or bowel movement at all in a couple of days. He is just not able to keep anything down. He is making urine. Despite receiving Zofran and Phenergan in the ER and fluids, he was still actively dry heaving when I saw him. He is having chills as well. Denies shortness of breath or chest pains. He does have nasal congestion and a dry mouth. On labs, his CBC was fairly unremarkable except for a mild chronic anemia. His creatinine however has been rising from his baseline of 2.6 and is now up to 3.74, with BUN elevated at 37. His serum bicarbonate was low at 20 with an anion gap of 13. LFTs were normal. Lipase normal. Urinalysis without evidence of infection but did have 3+ protein. He was given IV Phenergan, 2 L of normal saline, and IV Zofran. He will be admitted for intractable nausea/vomiting secondary to COVID-19 with r esulting acute kidney injury Principal Diagnosis 1. COVID-19 2. N/V/D d/t #1 3. Moderate Dehydration d/t #2 4. ROBERT d/t #2, 3 5. Hypomagnesemia--resolved Discharge Exam GENERAL: 41 yo well-developed, well-nourished WM. Appears ill but nontoxic. NAD. LUNGS: Clear to auscultation bilaterally. No W/R/R. CARDIOVASCULAR: Regular rate and rhythm. ABDOMEN: Soft, non-tender and non-distended. BS normal x 4 quad. EXTREMITIES: No edema. Non-tender. Peripheral pulses +2/4. NEUROLOGIC: A&O x3. PSYCHIATRIC: Cooperative. Appropriate mood and affect. SKIN: Warm, dry, intact. No rashes or lesions. Discharge Data Allergies Allergy/AdvReac Type Severity Reaction Status Date / Time oxycodone AdvReac Mild ITCHY Verified 11/21/21 16:34 prednisone AdvReac hoover Verified 11/21/21 16:34 Consultations 11/22/21 17:59 ED Decision to Admit Stat 11/22/21 19:04 Consult Nephrology Routine Ordered Studies Chest X-Ray 11/22/21 16:14 SINGLE VIEW CHEST CLINICAL HISTORY: Covid FINDINGS: 2 AP, portable, upright chest radiographs are compared to study dated 11/21/2021. The cardiomediastinal silhouette is unremarkable. The lungs and pleural spaces are clear. No pneumothorax is seen. The bony thorax is grossly intact. IMPRESSION: No active disease in the chest. ACT 112: Negative or not required by law. Electronically signed by: Leobardo Laird M.D. 11/22/2021 5:39 PM Hospital Course (1) Nausea & vomiting: Secondary to viral gastroenteritis (likely d/t his COVID-19 infection), intractable, persists after receiving IV Zofran and IV Phenergan in the ER with resulting dehydration and ROBERT -CT abdomen/pelvis from 11/21 is negative -Abdomen is benign on examination -IV Zofran as needed and add IV Compazine as needed -Pt made NPO at time of admission, tolerated ice chips and some sips of water -Advanced diet to clear on 11/23 dinner which he tolerated, advance to regular today for lunch (2) COVID-19: With 2 days of symptoms of body aches, cough, chills, nausea/vomiting, nasal congestion, not hypoxic, chest x-ray clear He had 2 doses of mRNA vaccine, but had chest pains after the second dose-no official diagnosis of myocarditis, but was hesitant to get a booster vaccine because of this -Treated nausea/vomiting as above -He cannot have Remdesevir due to his kidney disease nor is he a candidate as he is not hypoxic -Does not meet criteria for dexamethasone -Ordered IV APAP while NPO for aches/fever, can change back to oral -Hydrated with IV fluids for nausea/vomiting -Maintain isolation precautions--complete isolation as o/p by following cdc guidelines for a fully vaccinated person (3) ROBERT (acute kidney injury): He has a history of IgA nephropathy for 20 years and previously followed with [facility] nephrology, but due to insurance reasons, transitioning to [facility] providers -Creatinine up to 3.74, uncertain baseline as he has creatinine values ranging from 2.8-3.6 over the past year -With 3+ proteinuria on urinalysis -Potassium normal, serum bicarbonate mildly low at 20, blood pressures are normal to mildly elevated, not volume overloaded and is in fact hypovolemic from nausea/vomiting -Hydrated with LR -Nephrology consulted to see him while here - agreed with current rx and advise o/p f/u in 2 weeks -Serum iron 30--Venofer ordered by nephrology -Renally dose medications, avoid nephrotoxins -Creatinine improved in response to hydration (4) Metabolic acidosis: Secondary to dehydration and acute kidney injury -resolved w/ hydration (5) Chronic kidney disease: 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 (6) Anemia: Hemoglobin mildly low at 13.6, normocytic, suspect hemoconcentrated d/t dehydration -Ordered iron studies, B12, folate in the morning replace as needed -Likely secondary to anemia of chronic kidney disease -Vitamin B12 333, order a dose of IM Cyanocobalamin 1000mcg x1 and start oral supplementation daily * Repeat level in 6 weeks -Serum iron 30, replacement ordered by nephrology (7) Hyperparathyroidism: With elevated intact PTH of 400 on recent labs -Most likely secondary to chronic kidney disease stage IV -Follow with nephrology (8) Depression: -Stable on Seroquel which was held d/t NPO status -Resume Seroquel as prescribed (9) Accelerated hypertension: -BP accelerated -- 140-160s systolic, not on any antihypertensives -Monitor and will consider adding Hydralazine orally vs. o/p follow up Magnesium low at 1.6, replaced and normalized to 2.0 today. At this time, pt is tolerating oral intake. Will plan for d/c today after iron infusion. Diet advanced to regular for lunch. He can resume APAP as needed for headache/body aches/fever as outpatient. Otherwise, supportive care. Will arrange for 1 week BMP to be forwarded to Dr. Toth in office. He is to f/u with them in 2 weeks. BP mildly elevated during admission, recommend dietary modifications (salt and caffeine reduction) and f/u with PCP. May need to start medications for this. At this time, he is medically and hemodynamically stable for discharge home today. Above plan of care has been d/w Dr. Matthew who has also seen and evaluated this patient and is in agreement with the aforementioned. Total Time Total Time Spent Total Time Spent (In Minutes): <30 minutes Discharge Plan Discharge Items Patient Disposition: Home - Self-Care Reason For Visit: NAUSEA, VOMITING, COVID, ROBERT Discharge Diagnosis: COVID-19 Nausea, vomiting, diarrhea Moderate dehydration Activity: Resume your previous activity Non-emergency contact: Primary Care Provider and Senior Java Web Developer Call non-emergency contact if: you have any medication questions and your symptoms worsen Follow-up/Referrals: Gilberto Choudhary III, CRNP [Primary Care Provider] - Jose Toth DO [Physician] - (1-2 weeks) Diet: Regular Ambulatory Orders: Basic Metabolic Panel (Routine) Timeframe: 1 Week Location: Determined by Patient Ordered By: Keysha Vincent Attending Provider Instructions: You were hospitalized due to nausea, vomiting, and diarrhea which is likely due to your COVID-19 infection. This lead to you being significantly dehydrated and causing your kidney function to worsen. You were treated by giving you nothing to eat or drink, providing medications to relieve your nausea, and also hydrating you with IV fluids. Thankfully, you have had no respiratory symptoms requiring any oxygen, antiviral medications, or steroids for your COVID-19 infection. We would recommend that you follow CDC guidelines (isolate x 5 days from date of positive test which was 11/21) and isolate from others while you are still having symptoms (including: fever, chills, body aches, headache, cough, diarrhea). Do not return to work until you are 10 days out from date of positive test and your symptoms have improved. At home, you can continue supportive care including rest, fluids, and utilizing Tylenol as needed for aches/headache/fever. We would recommend that you follow up with [facility] [place] in 2 weeks. You can call their office to schedule your follow up appointment on Thursday. We would also advise to follow up with your family doctor within 1 week of discharge. Your blood pressure was slightly elevated during your stay and we would recommend follow up with your PCP to discuss this as you may need medications to ensure that your blood pressure is better controlled. You can make dietary changes to attempt to control your blood pressure by reducing salt and caffeine intake. In the event of any concerns or questions, please contact the nonemergency number listed on your discharge paperwork. In the event of a medical emergency, call 911. Pending Studies at Discharge: No Stand-Alone Forms: [facility], Smoking Cessation Medications and DC Order Prescriptions: New cyanocobalamin (vitamin B-12) 1,000 mcg capsule 2,000 mcg PO DAILY Qty: 60 RF: 0 Continued quetiapine [Seroquel] 25 mg tablet 25 mg PO BID Qty: 180 RF: 1 ondansetron HCl 4 mg tablet 4 mg PO Q8H PRN (Reason: nausea and vomiting) Qty: 20 RF: 0 acetaminophen [Tylenol Extra Strength] 500 mg Tablet 1,000 mg PO Q6H PRN (Reason: Fever Or Pain) RF: 0 Discharge Orders: Discharge Order (Routine); Ordered 11/24/21 Ordered By: Keysha Reyes Admission Data Admit Date/Time: 11/22/21 19:04 Attending Provider: Lex Matthew Admit Provider: Nikkie Patterson Primary Care Provider: Gilberto Choudhary III Other Providers: Jose Toth ; Nikkie Patterson Other Interventions: Discharge Summary Assessment (RN) Last Done: 11/24/21 13:53 Supervising Physician Co-Signing Physician Notes I personally saw and examined the patient. I verified all reeves points and agree with Keysha Reyes PA-C with the following exceptions and/or additions: 41-year-old male admission for acute renal failure secondary to COVID-19 with nausea, vomiting and diarrhea. ROBERT prerenal from dehydration. Known CKD from IgA nephropathy therefore nephrology help with management. Improved creatinine mostly back to his baseline with intravenous fluids. Discussed CDC isolation as long as symptoms improving for 5 days and being careful for up to 10 days. Advised him not to work for 10 days since his test on 21 November. Coding Level of Care Code 70513 OBS Care - Discharge Diagnoses Nausea & vomiting R11.2 Vomiting type: unspecified COVID-19 U07.1 ROBERT (acute kidney injury) N17.9 Metabolic acidosis E87.2 Chronic kidney disease N18.9 Chronic kidney disease stage: unspecified stage Anemia D64.9 Hyperparathyroidism E21.3 Depression F32.9 Accelerated hypertension I10
[2021-11-24] MEDS: IRON SUCROSE 200 MG in 0.9 % SODIUM CHLORIDE 100 ML IV SCH (12:25)
== END 2021-11-24 14:40 | disposition home or self-care (01) ==
LOC: ED 15:28 → 3E 15:28 → SUATTDRO 19:04 → 3E 23:34

== ENCOUNTER 2023-06-12 16:25 | Inpatient (IN) ==
[2023-06-12] MEDS ORDERED: SODIUM CHLORIDE 0.9% 1,000 ML IV STA (17:22)
[2023-06-12] MEDS ORDERED: ONDANSETRON INJ 2 MG/ML 2 ML VIAL IV STA (17:22)
[2023-06-12] MEDS ORDERED: KETOROLAC TROMETHAMINE 15 MG/ML VIAL IV STA (17:22)
--- NOTE | 2023-06-12 17:27 | Emergency Department Note ---
Impression & Plan ROBERT (acute kidney injury), Vomiting, Acute dehydration, Complete left bundle branch block, COVID-19 virus infection ED Provider Note NAME: RAKESH MOREIRA AGE: 42 SEX: M : 1980 ARRIVES VIA: Walk-In INFORMANT: Patient, ED PROVIDER(S): Sathya Melvin DO CHIEF COMPLAINT: Flulike symptoms HPI: The patient is a 42-year-old male who presented to the emergency department for 2 days of fever sore throat cough nausea vomiting and diarrhea. The patient states that he does have a kidney issue and is worried about being dehydrated. The patient states that he has had similar episodes in the past. He denies having any GI bleeding. The patient has not been seen by his family doctor. He has been using [id number] medication with only minimal relief. He is worried because has not been able to eat or drink. ROS: See above HPI for pertinent positives & negatives. A total of 10 systems reviewed and were otherwise negative. PAST MEDICAL HISTORY: See Below PAST SURGICAL HISTORY: See Below FAMILY HISTORY: See Below SOCIAL HISTORY: See Below HOME MEDICATIONS: See Below ALLERGIES: See Below VITALS: See Below PHYSICAL EXAMINATION: GENERAL: Patient is awake and alert. He appears to be comfortable. EYES: The conjunctivae are clear. The pupils are round and reactive. EARS, NOSE, MOUTH AND THROAT: The nose is without any evidence of any deformity. NECK: The neck is nontender and supple. RESPIRATORY: Normal respiratory effort is noted there is no evidence of wheezing rhonchi or rales CARDIOVASCULAR: Regular rate and rhythm noted there no murmurs rubs or gallops normal S1 normal S2. GASTROINTESTINAL: The abdomen is soft. Abdomen is nontender. MUSCULOSKELETAL/EXTREMITIES: There is no evidence of gross deformity full range of motion is noted in the hips and shoulders. SKIN: There is no obvious evidence of any rash. There are no petechiae, pallor or cyanosis noted. NEUROLOGIC: Patient is awake alert and oriented x3. MEDICAL DECISION MAKING: The patient is a 42-year-old male who presented to the emergency department for an evaluation of nausea vomiting and diarrhea. He also had flulike symptoms. COVID swab was positive. I do feel this most likely explains the patient's symptoms but given his history of IgA nephropathy and his nausea vomiting and diarrhea he appears to be very dehydrated. He was treated with IV fluids. Creatinine was elevated compared to baseline. He was also found of a new left bundle branch block. Initially I thought this could be due to electrolyte abnormality although his electrolytes especially potassium are normal. I discussed the patient's condition with him. I also discussed his condition with the on-call [facility] hospitalist. They have agreed to evaluate the patient in the emergency department for further management and disposition. Triage Nursing notes reviewed. Prior medical records reviewed Vital Signs: reviewed and remarkable for fever. Differential diagnosis: Gastroenteritis, food borne illness, infections, appendicitis, diverticulitis, inflammatory bowel disease, obstruction, GI bleed, biliary pathology, volvulus, as well as other pathologies. ER treatment provided: See below Diagnostics interpreted by me: ECG: EKG was obtained in the emergency department. My interpretation is normal sinus rhythm at 84 bpm. There is no ectopy. Peaked T waves were noted. There was a left bundle branch block pattern appreciated. This was compared to a tracing from October 31, 2020. The changes are new compared to the previous tracing Cardiac Monitoring: An order was placed for continuous cardiac monitoring. The monitor shows a rate of 83 bpm with sinus rhythm Laboratory studies: As stated above and show below. Imaging studies: See below. Radiographic imaging was reviewed by myself Consultation(s): I discussed this case with Dr. Caballero who is on-call for the [facility] hospitalist group. Past Med/Surg History Medical History Accelerated hypertension Anemia Hyperparathyroidism COVID-19 Gout (11/30/12) Chronic kidney disease Borderline personality disorder Depression Acute kidney injury IgA nephropathy Surgical History S/P hernia surgery S/P wisdom tooth extraction H/O exploratory laparotomy Family History Denies family history of Ovarian cancer Prostate cancer Myocardial infarction Breast cancer Colorectal cancer Social History Smoking Status: Never smoker Second Hand Exposure: No; Do You Dip or Chew Tobacco: No; Hx Alcohol Use: No Hx Substance Use: No Preferred Language: Slovenian Communication Ability: Effective Visual Impairment: No Limitations Hearing Ability: Hard of Hearing Rattan Worker Required: No Beliefs That Will Affect Care: None marital status: Current Living Situation: Alone current occupational status: employed 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[employer] How many Children do You have: 1 Feels Safe at Home: Yes Childhood Exposure to Second-Hand Smoke: No Diet: regular Dental Care, Regularly: Yes Physical Activity Frequency: 3-4 Times per Week Seatbelt Use: always Sunscreen Use: Yes Assistive Devices: Contacts and Glasses Allergies Allergies Allergy/AdvReac Type Severity Reaction Status Date / Time oxycodone AdvReac Mild ITCHY Verified 06/12/23 19:02 prednisone AdvReac hoover Verified 06/12/23 19:02 Home Meds Home Medications Medication Instructions Recorded Confirmed acetaminophen 500 mg tablet 500 mg PO Q6H PRN fever/pain 06/12/23 06/12/23 diphenhydramine HCl 25 mg capsule 25 mg PO TID PRN Allergy Symptoms 06/12/23 06/12/23 (Benadryl) guaifenesin 600 mg tablet, 600 mg PO BID 06/12/23 06/12/23 extended release 12 hr (Mucinex) quetiapine 25 mg tablet (Seroquel) 25 mg PO BID PRN INSOMNIA/Anxiety 06/12/23 06/12/23 Previous Rx's Medication Instructions Recorded allopurinol 100 mg tablet 100 mg PO DAILY #90 tabs 12/26/21 calcitriol 0.25 mcg capsule 0.25 mcg PO .COMPLEX #36 caps 12/26/21 atorvastatin 20 mg tablet 20 mg PO QPM #30 tabs 04/01/22 hydroxyzine HCl 50 mg tablet 50 mg PO TID PRN anxiety #30 tabs 08/12/22 bupropion HCl 100 mg tablet,12 hr 100 mg PO BID #180 ea 10/20/22 sustained-release (Wellbutrin SR) Results & Data (ED) Vital Signs Vital Signs - 24 hr 06/12/23 16:33 06/12/23 17:25 Temperature 38.3 C H Temperature Source Oral Pulse Rate 101 H 83 Respiratory Rate 20 16 Respiratory Effort / Characteristics Non-Labored Spontaneous Respiratory Depth Normal Blood Pressure 135/92 Blood Pressure Mean 106 Pulse Oximetry 90 97 Oxygen Delivery Method Room Air Room Air Sepsis Recent Fever Within 48 Hours Yes Sepsis New/Unexplained Change in Mental Status N/A Sepsis Action Taken by Nursing No Action Required Home Medications Current Medication List: was personally reviewed by me Laboratory Data Attestation: I reviewed the patient's lab results. 06/12/23 17:52 06/12/23 17:52 Lab Results 06/12/23 06/12/23 Range/Units 17:44 17:52 WBC 7.61 (4.8-10.8) K/ul RBC 4.04 L (4.70-6.10) M/uL Hgb 12.5 L (14.0-18.0) g/dl Hct 36.9 L (42.0-52.0) % MCV 91.3 (80.0-100.0) fL MCH 30.9 (25.0-34.0) pg MCHC 33.9 (32.0-36.0) g/dL RDW Std Deviation 42.5 (36.4-46.3) fL RDW Coeff of Segun 12.6 (11.5-14.5) % Plt Count 199 (130-400) K/uL MPV 10.7 (9.4-12.4) fL Immature Gran % (Auto) 0.4 % Neut % (Auto) 78.2 % Lymph % (Auto) 10.8 % Evans % (Auto) 10.2 % Eos % (Auto) 0.1 % Baso % (Auto) 0.3 % Neut # (Auto) 5.95 (1.40-6.50) K/uL Lymph # (Auto) 0.82 L (1.20-3.40) K/uL Evans # (Auto) 0.78 H (0.11-0.59) K/uL Eos # (Auto) 0.01 (0.00-0.50) K/uL Baso # (Auto) 0.02 (0.00-0.20) K/uL Immature Gran # (Auto) 0.03 (0.01-0.20) K/uL Sodium 138 (136-145) mmol/L Potassium 4.3 (3.5-5.1) mmol/L Chloride 109 H (98-107) mmol/L Carbon Dioxide 19 L (21-32) mmol/L Anion Gap 10 (3-11) BUN 41 H (6-23) mg/dl Creatinine 4.17 H (0.6-1.4) mg/dl Est Cr Clr Drug Dosing 20.0 ml/min Est GFR ( Amer) 18.9 ml/min Est GFR (Non-Af Amer) 16.3 ml/min BUN/Creatinine Ratio 9.8 L (10-20) Glucose 110 H (70-99(Fasting)) mg/dl Calcium 9.8 (8.6-10.3) mg/dl Total Bilirubin 0.3 (0.2-1.0) mg/dl AST 14 (13-39) U/L ALT 9 (7-52) U/L Alkaline Phosphatase 87 (34-104) U/L Troponin I High Sens 6.6 (0-20) pg/ml Total Protein 7.0 (6.0-8.3) gm/dl Albumin 4.0 (3.4-5.0) gm/dl Globulin 3.0 (2.5-4.0) gm/dl Albumin/Globulin Ratio 1.3 (0.9-2) Lipase 28 (11-82) U/L SARS-CoV-2 (PCR) POSITIVE A* (Negative) Influenza Type A (PCR) Negative (Neg) Influenza Type B (PCR) Negative (Neg) RSV (RT-PCR) Negative (Neg) Administered Medications Discontinued Medications Sodium Chloride (Nss) 1,000 mls @ 999 mls/hr IV .Q1H1M STA Stop: 06/12/23 18:22 Last Infusion: 06/12/23 18:57 Dose: Infused Documented By: Admin: 06/12/23 17:54 Dose: 999 mls/hr Documented By: ACC Ketorolac Tromethamine (Ketorolac Tromethamine 15 Mg/Ml Vial) 10 mg IV NOW STA Stop: 06/12/23 17:23 Last Admin: 06/12/23 17:54 Dose: 10 mg Documented By: ACC Ondansetron HCl (Ondansetron Inj 2 Mg/Ml 2 Ml Vial) 4 mg IV NOW STA Stop: 06/12/23 17:23 Last Admin: 06/12/23 17:54 Dose: 4 mg Documented By: ACC Imaging Data Attestation: I personally reviewed and interpreted this imaging study as follows: My Impression: 1 view chest x-ray was obtained in the emergency department. My interpretation is no free air or definite infiltrate, final report below. KUB was obtained in the emergency department. My interpretation is no free air or signs of bowel obstruction, final report below. Radiologist's Impression: Chest X-Ray 06/12/23 17:22 XR chest 1V portable CLINICAL HISTORY: Cough. Fever. COMPARISON STUDY: Chest CT July 02, 2013. Chest radiograph November 22, 2021. FINDINGS: Lung volumes are normal. Lungs are clear. There is no pneumothorax or pleural effusion. Cardiac size is normal. Mediastinal contours are normal. There is no evidence for pulmonary edema. IMPRESSION: No acute cardiopulmonary findings. ACT 112: Negative or not required by law. Electronically signed by: Mynor Hanna M.D. 06/12/2023 5:47 PM KUB X-Ray 06/12/23 17:22 KUB CLINICAL HISTORY: Vomiting. COMPARISON STUDY: CT of the abdomen and pelvis and KUB November 21, 2021. FINDINGS: The bowel gas pattern is normal. There is a moderate amount of stool within the ascending colon. Overall, amount of stool within the colon and rectum is within normal limits. No urinary calculi are identified. No evidence for free air on supine exam. IMPRESSION: Unremarkable KUB. No evidence for a bowel obstruction. ACT 112: Negative or not required by law. Electronically signed by: Mynor Hanna M.D. 06/12/2023 5:48 PM Discharge Plan Visit Data Chief Complaint: Flu Like Symptoms Stated Complaint: VOMIT, FEVER, COUGH ED Provider: Sathya Melvin Discharge Problem: ROBERT (acute kidney injury), Vomiting, Acute dehydration, Complete left bundle branch block, COVID-19 virus infection Patient Disposition: Being Evaluated by Hospitalist Forms Stand Alone Forms: My [facility] Prescriptions Prescriptions: No Action calcitriol 0.25 mcg capsule 0.25 mcg PO .COMPLEX Qty: 36 2RF Rx Instructions: 0.25 mcg PO every thursday, thursday, and thursday; allopurinol 100 mg tablet 100 mg PO DAILY Qty: 90 3RF atorvastatin 20 mg tablet 20 mg PO QPM Qty: 30 2RF hydroxyzine HCl 50 mg tablet 50 mg PO TID PRN (Reason: anxiety) Qty: 30 3RF bupropion HCl [Wellbutrin SR] 100 mg tablet sustained-release 12 hr 100 mg PO BID Qty: 180 3RF acetaminophen [Tylenol Ex Str Rapid Release] 500 mg Tablet 500 mg PO Q6H PRN (Reason: fever/pain) diphenhydramine HCl [Benadryl] 25 mg Capsule 25 mg PO TID PRN (Reason: Allergy Symptoms) guaifenesin [Mucinex] 600 mg Tablet Extended Release 12hr 600 mg PO BID quetiapine [Seroquel] 25 mg tablet 25 mg PO BID PRN (Reason: INSOMNIA/Anxiety) Referrals Referrals: Gilberto Choudhary III, CRNP [Primary Care Provider] - Discharge Problem: Vomiting Qualifiers: Vomiting type: unspecified Nausea presence: with nausea Qualified Code(s): R 11.2 - Nausea with vomiting, unspecified
--- NOTE | 2023-06-12 17:48 | XRay Report ---
XR chest 1V portable CLINICAL HISTORY: Cough. Fever. COMPARISON STUDY: Chest CT July 02, 2013. Chest radiograph November 22, 2021. FINDINGS: Lung volumes are normal. Lungs are clear. There is no pneumothorax or pleural effusion. Car diac size is normal. Mediastinal contours are normal. There is no evidence for pulmonary edema. IMPRESSION: No acute cardiopulmonary findings. ACT 112: Negative or not required by law. Electronically signed by: Mynor Hanna M.D. 06/12/2023 5:47 PM
--- NOTE | 2023-06-12 17:49 | XRay Report ---
KUB CLINICAL HISTORY: Vomiting. COMPARISON STUDY: CT of the abdomen and pelvis and KUB November 21, 2021. FINDINGS: The bowel gas pattern is normal. There is a moderate amount of stool within the ascending c olon. Overall, amount of stool within the colon and rectum is within normal limits. No urinary calcul i are identified. No evidence for free air on supine exam. IMPRESSION: Unremarkable KUB. No evidence for a bowel obstruction. ACT 112: Negative or not required by law. Electronically signed by: Mynor Hanna M.D. 06/12/2023 5:48 PM
[2023-06-12 18:16] LABS: Basophils # (auto) 0.02 K/uL (0.00-0.20); Basophils % (auto) 0.3 %; Eosinophils # (auto) 0.01 K/uL (0.00-0.50); Eosinophils % (auto) 0.1 %; Hematocrit (blood only) 36.9 % (42.0-52.0); Hemoglobin 12.5 g/dl (14.0-18.0); Immature Granulocytes # (auto) 0.03 K/uL (0.01-0.20); Immature Granulocytes % (auto) 0.4 %; Lymphocytes # (auto) 0.82 K/uL (1.20-3.40); Lymphocytes % (auto) 10.8 %; Mean Corpuscular Hemoglobin 30.9 pg (25.0-34.0); Mean Corpuscular Hgb Conc 33.9 g/dL (32.0-36.0); Mean Corpuscular Volume 91.3 fL (80.0-100.0); Mean Platelet Volume 10.7 fL (9.4-12.4); Monocytes # (auto) 0.78 K/uL (0.11-0.59); Monocytes % (auto) 10.2 %; Neutrophils # (auto) 5.95 K/uL (1.40-6.50); Neutrophils % (auto) 78.2 %; Platelet Count 199 K/uL (130-400); RDW Coefficient of Variation 12.6 % (11.5-14.5); RDW Standard Deviation 42.5 fL (36.4-46.3); Red Blood Count 4.04 M/uL (4.70-6.10); White Blood Count 7.61 K/ul (4.8-10.8)
[2023-06-12 18:34] LABS: Albumin Globulin Ratio 1.3 (0.9-2); BUN Creatinine Ratio 9.8 (10-20); Bilirubin,Total 0.3 mg/dl (0.2-1.0); Calcium 9.8 mg/dl (8.6-10.3); Est GFR (African American) 18.9 ml/min; Est GFR (Non-African American) 16.3 ml/min; Potassium 4.3 mmol/L (3.5-5.1)
[2023-06-12 18:41] LABS: Troponin I High Sensitivity 6.6 pg/ml (0-20)
[2023-06-12 18:46] LABS: Influenza A virus by PCR Negative (Neg); Influenza B virus by PCR Negative (Neg); RSV by PCR Negative (Neg)
[2023-06-12 18:52] LABS: SARS CoV2 RNA(COVID-19) Ceph POSITIVE (Negative)
[2023-06-12] MEDS ORDERED: SODIUM CHLORIDE 0.9% 1,000 ML IV ONE (18:58)
--- NOTE | 2023-06-12 19:39 | History & Physical Report ---
Date of Service June 12, 2023 Assessment & Plan (1) COVID-19 virus infection: Plan: Patient presents to the hospital with fever chills nausea vomiting Tested positive for COVID-19 States he was exposed to to sick people at work Chest x-ray did not show any infiltrates Saturating well on room air Symptomatic management with Tylenol, may consider steroids (2) ROBERT (acute kidney injury): Plan: Patient has some baseline renal dysfunction from IgA nephropathy, CKD stage IV Presents with worsening creatinine, 4.17 today compared to 3.6 a couple of months ago Most likely prerenal due to dehydration from nausea vomiting and diarrhea Continue IV normal saline 100 cc/h Recheck BMP Consult nephrology (3) Complete left bundle branch block: Plan: New left bundle branch block seen on EKG Patient denies chest pain or shortness of breath Troponin is within normal limits Obtain 2D echo Consult cardiology (4) IgA nephropathy: Plan: Obtain urinalysis Nephrology on consult Plan Monitor on telemetry Full code DVT prophylaxis heparin History of Present Illness Chief Complaint: Fever and chills nausea and vomiting Primary Care Provider: Gilberto Choudhary III, LEONIDAS Is a 42-year-old male with a history of IgA nephropathy who presents to the hospital today with complaints of nausea vomiting diarrhea chills and fever which started earlier today. According to the patient, he was exposed to 2 people at work who had flulike symptoms. He usually follows up with his family doctor who monitors his IgA nephropathy but said he has not been to see his doctor. He tried [id number] medications but did not obtain any relief so he decided to come to the hospital further management. He has not been eating and drinking okay. Here in emergency department temperature was 100.9, saturating well on room air blood pressure 135/92 COVID-19 was positive serum creatinine was 4.17 from 3.49 a couple of months ago. An EKG was done which showed evidence of questionable new left bundle branch block. Patient be admitted to the hospital further management Allergies Allergy/AdvReac Type Severity Reaction Status Date / Time oxycodone AdvReac Mild ITCHY Verified 06/12/23 19:02 prednisone AdvReac hoover Verified 06/12/23 19:02 Home Medications Medication Instructions Recorded Confirmed Type allopurinol 100 mg tablet 100 mg PO DAILY #90 tabs 12/26/21 06/12/23 Rx calcitriol 0.25 mcg capsule 0.25 mcg PO .COMPLEX #36 caps 12/26/21 06/12/23 Rx atorvastatin 20 mg tablet 20 mg PO QPM #30 tabs 04/01/22 06/12/23 Rx hydroxyzine HCl 50 mg tablet 50 mg PO TID PRN anxiety #30 tabs 08/12/22 06/12/23 Rx bupropion HCl 100 mg tablet,12 hr 100 mg PO BID #180 ea 10/20/22 06/12/23 Rx sustained-release (Wellbutrin SR) acetaminophen 500 mg tablet 500 mg PO Q6H PRN fever/pain 06/12/23 06/12/23 History diphenhydramine HCl 25 mg capsule 25 mg PO TID PRN Allergy Symptoms 06/12/23 06/12/23 History (Benadryl) guaifenesin 600 mg tablet, 600 mg PO BID 06/12/23 06/12/23 History extended release 12 hr (Mucinex) quetiapine 25 mg tablet (Seroquel) 25 mg PO BID PRN INSOMNIA/Anxiety 06/12/23 06/12/23 History Past Med/Surg History Medical History Accelerated hypertension Anemia Hyperparathyroidism COVID-19 Gout (11/30/12) Chronic kidney disease Borderline personality disorder Depression Acute kidney injury IgA nephropathy Surgical History S/P hernia surgery S/P wisdom tooth extraction H/O exploratory laparotomy Family History Denies family history of Ovarian cancer Prostate cancer Myocardial infarction Breast cancer Colorectal cancer Social History Smoking Status: Never smoker Second Hand Exposure: No; Do You Dip or Chew Tobacco: No; Hx Alcohol Use: No Hx Substance Use: No Preferred Language: Austrian Communication Ability: Effective Visual Impairment: No Limitations Hearing Ability: Hard of Hearing Trimmer Machine Operator Required: No Beliefs That Will Affect Care: None marital status: Current Living Situation: Alone current occupational status: employed current occupation: REST SOFTWARE TECHNICAL LEAD TA How many Children do You have: 1 Feels Safe at Home: Yes Childhood Exposure to Second-Hand Smoke: No Diet: regular Dental Care, Regularly: Yes Physical Activity Frequency: 3-4 Times per Week Seatbelt Use: always Sunscreen Use: Yes Assistive Devices: Contacts and Glasses Review of Systems Review of Systems: All systems reviewed are negative, apart from the ones contained in the history. Physical Exam Physical Exam: The patient is awake, alert and oriented 3, well developed and well nourished, normocephalic and atraumatic, lying in bed and in no acute distress. HEENT--PERRL, EOMI, mucous membranes and oropharynx mildly dry Neck--supple. No JVD. No bruits. Thyroid normal, trachea midline, no adenopathy. Heart--normal S1 and S2. No murmurs, rubs or gallops. Lungs--clear bilaterally, no respiratory distress, no accessory muscle use. Abdomen--normal bowel sounds and soft. Mild epigastric and left sided abdominal pain Extremities--no cyanosis or clubbing. No edema. Dermatologic--normal skin turgor, normal color, no abnormal lymph nodes, no rash. Neurologic--cranial nerves II through XII grossly intact. Rheumatologic--normal range of motion. Psychiatric--normal affect. Results & Data Results & Data Vital Signs (Past 12 Hours) Vital Signs Temp Pulse Resp BP Pulse Ox O2 Del Method 06/12/23 17:25 83 16 97 Room Air 06/12/23 16:33 100.9 F H 101 H 20 135/92 90 Room Air PG Care Time/CCT Total # of Minutes Spent Total Time Spent with Patient: Total time spent is greater than 50% in coordination of care (as documented) at patient's floor/unit and/or counseling patient: Coding Level of Care Code 05814 INT INP/OBS CARE 3/75MIN Diagnoses COVID-19 virus infection U07.1 ROBERT (acute kidney injury) N17.9 Complete left bundle branch block I44.7 IgA nephropathy N02.8 Time Spent (min) 75
[2023-06-12 19:55] LABS: Appearance Urine Clear (Clear); Bacteria Urine Automated Negative (Negative); Bilirubin Urine Negative (Negative); Blood Urine Trace (Negative); Color Urine Yellow; Epithelial Cell Urine Auto 0-5 /lpf (0-5); Glucose Urine UA Negative (Negative); Ketones Urine Negative (Negative); Leukocyte Esterase Urine Negative (Negative); Nitrite Urine Negative (Negative); Protein Urine 3+ (Negative); RBC Urine Automated 0-4 /hpf (0-4); Specific Gravity Urine 1.013 (1.000-1.030); Urobilinogen Urine Negative (Negative); pH Urine 5.5 (4.5-7.5)
[2023-06-12] MEDS ORDERED: ACETAMINOPHEN 500 MG TAB PO STA (20:03)
[2023-06-12] MEDS ORDERED: hydrOXYzine HCl 25 MG TAB PO PRN (22:27)
[2023-06-12] MEDS ORDERED: QUEtiapine FUMARATE 25 MG TABLET PO PRN (22:27)
[2023-06-12] MEDS ORDERED: diphenhydrAMINE Capsule 25 MG CAP PO PRN (22:27)
[2023-06-12] MEDS ORDERED: ACETAMINOPHEN 500 MG TAB PO PRN (22:27)
[2023-06-12] MEDS: HEPARIN SOD 5,000 UNIT/0.5 ML VIAL SQ SCH (23:19)
[2023-06-12] MEDS: guaiFENesin 600 MG TABCR PO SCH (23:19)
[2023-06-12] MEDS: buPROPion SR 100 MG TABCR PO SCH (23:20)
[2023-06-12] MEDS: ATORVASTATIN 20 MG TAB PO SCH (23:20)
[2023-06-13] MEDS: ONDANSETRON INJ 2 MG/ML 2 ML VIAL IV PRN ×3 (02:55→16:23)
[2023-06-13] MEDS: HEPARIN SOD 5,000 UNIT/0.5 ML VIAL SQ SCH ×3 (06:42→22:53)
[2023-06-13 06:51] LABS: Calcium 8.9 mg/dl (8.6-10.3)
[2023-06-13 06:56] LABS: BUN Creatinine Ratio 10.3 (10-20); Creatinine Clr Calc Pharmacy 20.4 ml/min; Est GFR (African American) 19.4 ml/min; Est GFR (Non-African American) 16.8 ml/min
[2023-06-13] MEDS ORDERED: INFLUENZA VIRUS QUADRIVALENT VACCINE (IIV4) 0.5 ML SYR IM ONE (09:00)
--- NOTE | 2023-06-13 09:52 | Nephrology Consultation ---
Date of Consultation June 13, 2023 Assessment & Plan (1) ROBERT (acute kidney injury): Noted component of dehydration. Non-oliguric. Volume status acceptable at this time. BP acceptable. Electrolytes acceptable. No emergent indication for dialysis. Medications appropriate for kidney dysfunction. Urine microscopy acellular. Renal diet. (2) Chronic kidney disease: CKD IV-V A2. Reported history of IgA nephropathy per prior biopsy. No history of immune modifying therapy. Close outpatient follow up will be required. Ultimately, Anoop may benefit from restaging with a repeat biopsy. (3) IgA nephropathy: No evidence of RPGN at this time. Unfortunately, clinical presentation consistent with advanced CKD. No additional therapy indicted at this time. (4) Anemia: Anemia of CKD. Hgb >11; RA therapy held. (5) Hyperparathyroidism: Remains on calcitriol. Calcium acceptable. Tolerating therapy well. (6) COVID-19: Symptomatically improving. History of Present Illness Reason for Consultation: ROBERT on CKD Requesting Physician: Lucía Pinzon MD Attending Physician: Lucía Pinzon MD History of Present Illness Mr. Anoop Brandon is a 42-year-old male with CKD attributed to IgA nephropathy. Creatinine in March 2022 was 3.5 mg/dL. Urine PCR 1.1 in December 2021. Anoop unfortunately has not had regular follow up with a youth services librarian. I met him when he was hospitalized in October of 2021 and saw him once for follow up in December 2021. He canceled his next appointment and was then lost to follow up. Anoop previously followed with Dr. Reginaldo Boland. The diagnosis of IgA nephropathy was made based on the findings of a percutaneous kidney biopsy performed at [facility] ~16 years ago. At that time, no additional treatment was provided. He was told that there was no specific treatment indicated for the condition at that time. He has a twin brother who has expressed interest in acting as a living kidney donor if needed. However, Anoop has notably struggled with accepting the diagnosis and admits to poor follow up. He believes manifestations of the disease where initially appreciated during a hospitalization with severe GI issues at [facility] when he was 24 years old. He suffered a notable episode of ROBERT during the admission following an exploratory laparotomy. Complications of his CKD including sPTH and anemia of CKD. He has not had issues with fluid retention or edema. Anoop presented to [facility] yesterday with recent GI symptoms, generalized malaise and sore throat. He is COVID+. He was admitted yesterday with dehydration. IV saline was provided and IVF continued since admission. Anoop is non-oliguric. He reports improvement in symptoms. Unfortunately, he remains unable to tolerate much PO. No fevers or chills. Medical history is also notable for OMEGA/depression, borderline personality disorder, gout, and hyperlipidemia. No notable NSAID use. Allergies Allergy/AdvReac Type Severity Reaction Status Date / Time oxycodone AdvReac Mild ITCHY Verified 06/12/23 19:02 prednisone AdvReac hoover Verified 06/12/23 19:02 Home Medications Medication Instructions Recorded Confirmed Type allopurinol 100 mg tablet 100 mg PO DAILY #90 tabs 12/26/21 06/12/23 Rx calcitriol 0.25 mcg capsule 0.25 mcg PO .COMPLEX #36 caps 12/26/21 06/12/23 Rx atorvastatin 20 mg tablet 20 mg PO QPM #30 tabs 04/01/22 06/12/23 Rx hydroxyzine HCl 50 mg tablet 50 mg PO TID PRN anxiety #30 tabs 08/12/22 06/12/23 Rx bupropion HCl 100 mg tablet,12 hr 100 mg PO BID #180 ea 10/20/22 06/12/23 Rx sustained-release (Wellbutrin SR) acetaminophen 500 mg tablet 500 mg PO Q6H PRN fever/pain 06/12/23 06/12/23 History diphenhydramine HCl 25 mg capsule 25 mg PO TID PRN Allergy Symptoms 06/12/23 06/12/23 History (Benadryl) guaifenesin 600 mg tablet, 600 mg PO BID 06/12/23 06/12/23 History extended release 12 hr (Mucinex) quetiapine 25 mg tablet (Seroquel) 25 mg PO BID PRN INSOMNIA/Anxiety 06/12/23 06/12/23 History Patient History Medical History Accelerated hypertension Anemia Hyperparathyroidism COVID-19 Gout (11/30/12) Chronic kidney disease Borderline personality disorder Depression Acute kidney injury IgA nephropathy Surgical History S/P hernia surgery S/P wisdom tooth extraction H/O exploratory laparotomy Family History Denies family history of Ovarian cancer Prostate cancer Myocardial infarction Breast cancer Colorectal cancer Social History Smoking Status: Never smoker Second Hand Exposure: No; Do You Dip or Chew Tobacco: No; Hx Alcohol Use: No Hx Substance Use: Yes Last Used Substance: Days (ago) Preferred Language: Montenegrin Communication Ability: Effective Visual Impairment: No Limitations Hearing Ability: Hard of Hearing Start Up Specialist Required: No Beliefs That Will Affect Care: None marital status: Current Living Situation: Alone current occupational status: employed current occupation: [employer] How many Children do You have: 1 Feels Safe at Home: Yes Childhood Exposure to Second-Hand Smoke: No Diet: regular Dental Care, Regularly: Yes Physical Activity Frequency: 3-4 Times per Week Seatbelt Use: always Sunscreen Use: Yes Assistive Devices: None Review of Systems Review of Systems: All systems reviewed & are unremarkable except as noted in HPI & below Physical Exam Constitutional: well developed; no acute distress Eyes: no scleral abnormality and no corneal abnormality ENMT: Mouth: no oral mucosal abnormality and oral mucous membranes not dry Neck: normal visual inspection and trachea midline Respiratory: normal respiratory effort Auscultation: lungs clear to auscultation bilaterally Cardiovascular: Rate/Rhythm: regular rate Heart Sounds: normal S1 and normal S2 Extremities: no edema Musculoskeletal: Extremities: no cyanosis and no clubbing Skin: normal turgor; no jaundice Neurologic: Motor/Sensory: no tremor and no asterixis Psychiatric: Orientation: alert and oriented x 3 Results & Data Vital Signs (Past 12 Hours) Vital Signs Temp Pulse Pulse Resp BP BP Pulse Ox 06/13/23 08:40 37.1 C 87 18 146/92 H 97 06/13/23 06:23 37.2 C 67 18 139/82 97 06/13/23 00:00 65 06/12/23 23:58 37.2 C 63 18 134/82 98 06/12/23 22:00 37.1 C 61 20 159/94 H 96 O2 Del Method 06/13/23 08:40 Room Air 06/13/23 06:23 Room Air 06/13/23 00:00 06/12/23 23:58 Room Air 06/12/23 22:00 Room Air Laboratory Results Laboratory Results - last 24 hr 06/12/23 06/12/23 06/12/23 17:44 17:52 19:17 WBC 7.61 RBC 4.04 L Hgb 12.5 L Hct 36.9 L MCV 91.3 MCH 30.9 MCHC 33.9 RDW Std Deviation 42.5 RDW Coeff of Segun 12.6 Plt Count 199 MPV 10.7 Immature Gran % (Auto) 0.4 Neut % (Auto) 78.2 Lymph % (Auto) 10.8 Ellis % (Auto) 10.2 Eos % (Auto) 0.1 Baso % (Auto) 0.3 Neut # (Auto) 5.95 Lymph # (Auto) 0.82 L Ellis # (Auto) 0.78 H Eos # (Auto) 0.01 Baso # (Auto) 0.02 Immature Gran # (Auto) 0.03 Sodium 138 Potassium 4.3 Chloride 109 H Carbon Dioxide 19 L Anion Gap 10 BUN 41 H Creatinine 4.17 H Est Cr Clr Drug Dosing 20.0 Est GFR ( Amer) 18.9 Est GFR (Non-Af Amer) 16.3 BUN/Creatinine Ratio 9.8 L Glucose 110 H Calcium 9.8 Total Bilirubin 0.3 AST 14 ALT 9 Alkaline Phosphatase 87 Troponin I High Sens 6.6 Total Protein 7.0 Albumin 4.0 Globulin 3.0 Albumin/Globulin Ratio 1.3 Lipase 28 Urine Color Yellow Urine Appearance Clear Urine pH 5.5 Ur Specific Adrian 1.013 Urine Protein 3+ H Urine Glucose (UA) Negative Urine Ketones Negative Urine Blood Trace H Urine Nitrite Negative Urine Bilirubin Negative Urine Urobilinogen Negative Ur Leukocyte Esterase Negative Urine WBC (Auto) 1-5 Urine RBC (Auto) 0-4 U Hyaline Cast (Auto) 1-5 U Epithel Cells (Auto) 0-5 Urine Bacteria (Auto) Negative SARS-CoV-2 (PCR) POSITIVE A* Influenza Type A (PCR) Negative Influenza Type B (PCR) Negative RSV (RT-PCR) Negative 06/13/23 05:48 WBC RBC Hgb Hct MCV MCH MCHC RDW Std Deviation RDW Coeff of Segun Plt Count MPV Immature Gran % (Auto) Neut % (Auto) Lymph % (Auto) Ellis % (Auto) Eos % (Auto) Baso % (Auto) Neut # (Auto) Lymph # (Auto) Ellis # (Auto) Eos # (Auto) Baso # (Auto) Immature Gran # (Auto) Sodium 140 Potassium 5.0 Chloride 113 H Carbon Dioxide 20 L Anion Gap 7 BUN 42 H Creatinine 4.08 H Est Cr Clr Drug Dosing 20.4 Est GFR ( Amer) 19.4 Est GFR (Non-Af Amer) 16.8 BUN/Creatinine Ratio 10.3 Glucose 100 H Calcium 8.9 Total Bilirubin AST ALT Alkaline Phosphatase Troponin I High Sens Total Protein Albumin Globulin Albumin/Globulin Ratio Lipase Urine Color Urine Appearance Urine pH Ur Specific Adrian Urine Protein Urine Glucose (UA) Urine Ketones Urine Blood Urine Nitrite Urine Bilirubin Urine Urobilinogen Ur Leukocyte Esterase Urine WBC (Auto) Urine RBC (Auto) U Hyaline Cast (Auto) U Epithel Cells (Auto) Urine Bacteria (Auto) SARS-CoV-2 (PCR) Influenza Type A (PCR) Influenza Type B (PCR) RSV (RT-PCR) Diagnostic Findings KUB COMPARISON STUDY: CT of the abdomen and pelvis and KUB November 21, 2021. FINDINGS: The bowel gas pattern is normal. There is a moderate amount of stool within the ascending colon. Overall, amount of stool within the colon and rectum is within normal limits. No urinary calculi are identified. No evidence for free air on supine exam. IMPRESSION: Unremarkable KUB. No evidence for a bowel obstruction. XR chest 1V portable COMPARISON STUDY: Chest CT July 02, 2013. Chest radiograph November 22, 2021. FINDINGS: Lung volumes are normal. Lungs are clear. There is no pneumothorax or pleural effusion. Cardiac size is normal. Mediastinal contours are normal. There is no evidence for pulmonary edema. IMPRESSION: No acute cardiopulmonary findings. ECG Rate (beats per minute): 84 Rhythm: normal sinus Findings: + LBBB PG Care Time/CCT Total # of Minutes Spent Total Time Spent with Patient: Total time spent is greater than 50% in coordination of care (as documented) at patient's floor/unit and/or counseling patient: Coding Level of Care Code 23891 IN/OBS CONSULT LVL 4,60M Diagnoses ROBERT (acute kidney injury) N17.9 Chronic kidney disease N18.9 Chronic kidney disease stage: unspecified stage IgA nephropathy N02.8 Anemia D64.9 Hyperparathyroidism E21.3 COVID-19 U07.1 (2) Chronic kidney disease Chronic kidney disease stage: unspecified stage Qualified Code(s): N18.9 - Chronic kidney disease, unspecified
[2023-06-13] MEDS: allopurinoL 100 MG TAB PO SCH (10:27)
[2023-06-13] MEDS: guaiFENesin 600 MG TABCR PO SCH ×2 (10:27→20:30)
[2023-06-13] MEDS: buPROPion SR 100 MG TABCR PO SCH ×2 (10:27→20:30)
--- NOTE | 2023-06-13 10:32 | CT Scan Report ---
CT SCAN OF THE PARANASAL SINUSES CLINICAL HISTORY: Sinus headache. Left facial pain. COMPARISON STUDY: No priors. TECHNIQUE: High-resolution CT scan of the paranasal sinuses is performed. Images are reviewed in the axial, sagittal, and coronal planes. IV contrast was not administered for this examination. A dose lowering technique was utilized adhering to the principles of ALARA. CT DOSE: 679.21 mGy.cm FINDINGS: Maxillary antra: A 7 mm retention cyst is seen on the left. Otherwise clear bilaterally. Anterior ethmoid sinuses: Clear. Posterior ethmoid sinuses: Clear. Sphenoid sinuses: Trace mucosal thickening is seen on the left. Clear on the right. Frontal sinuses: Clear. Ostiomeatal complexes: Patent bilaterally. Frontoethmoidal and sphenoethmoidal recesses: Patent bilaterally. Carotid arteries: The carotid arteries are protuberant but covered and are without septal attachments . Ethmoid roofs: The ethmoid roofs are symmetric. Nasal turbinates: There is clem bullosa of the right middle nasal turbinate. Nasal septum: There is leftward deviation of the bony nasal septum. Optic nerves: Covered. Orbits: The bony orbits are intact. Orbital contents are normal in appearance. Calvarium: The imaged calvarium is normal in appearance Mastoid air cells: Well pneumatized. Brain parenchyma: Normal as visualized. IMPRESSION: No significant paranasal sinus disease is identified. ACT 112: Negative or not required by law. Electronically signed by: Leobardo Laird M.D. 06/13/2023 10:29 AM
--- NOTE | 2023-06-13 11:33 | XCELERA ---
[id number]
[2023-06-13] MEDS: SODIUM CHLORIDE 0.45 % 1,000 ML IV SCH ×2 (11:39→20:34)
[2023-06-13] MEDS: FLUTICASONE PROPIONATE NA SPR 16 GM BTL SCH ×2 (11:41→20:28)
[2023-06-13] MEDS: OXYMETAZOLINE 0.05% 30 ML BTL SCH ×2 (11:41→20:28)
--- NOTE | 2023-06-13 15:14 | Hospitalist Progress Note ---
Date of Service June 13, 2023 Assessment & Plan (1) COVID-19 virus infection: Plan: Symptoms: fever chills nausea vomiting. No dyspnea chest pain or hypoxia -steroids/RDV not indicated, renal function too poor for paxlovid/RDV -supportive care -added flonase and afrin for sinus symptoms, reviewed sinus CT and no significant findings -GI symptoms and fever improving -had primary vaccine series and one prior episode of COVID a few years ago (2) ROBERT (acute kidney injury): Plan: ROBERT on CKD-4 due to IgA nephropathy, followed by Dr. Toth in clinic. Baseline around 3.5 Cr same overnight at 4 but has good UOP, prerenal ROBERT Ordered continuous 1/2 normal saline 100 cc/h Recheck BMP AM (3) Complete left bundle branch block: Plan: New left bundle branch block seen on EKG, last EKG in system was 2020 however No evidence of ACS, reviewed echo with fireworks display specialist - systolic motion as expected with LBBB Will make referral to cardiology for outpatient workup (4) IgA nephropathy: Plan Full code DVT prophylaxis heparin Admission and Anticipated Discharge Date Admission Date: June 12, 2023 Subjective Anoop feels much better, still has nausea and attributes this to postnasal drip related to sinus congestion - on left, no facial pain or headache, started with the COVID but gets from time to time. No SOB or CP. No abdominal pain no vomiting or diarrhea today. Has drank some fluids and ate a small amount. COVID sx started yesterday Physical Exam 2 Physical Exam: PHYSICAL EXAMINATION Last 24h vital signs reviewed, see documentation in flowsheet General: comfortable appearing, no distress, pleasant HEENT: Normocephalic, atraumatic, pupils round and equal, sclerae anicteric, no conjunctival injection, moist mucus membranes Lungs: Normal respiratory effort. Clear to auscultation bilaterally. No RRW Heart: Regular rate and rhythm, no murmurs. No JVD Abdomen: Soft, nontender, nondistended. Bowel sounds present. Extremities: Warm, dry, well-perfused. No extremity edema. Neuro: Alert and oriented x 4, face symmetric, moves 4 extremities well Psych: Normal affect and behavior Results & Data Results & Data Vital Signs (Past 12 Hours) Vital Signs Temp Pulse Pulse Resp BP Pulse Ox O2 Del Method 06/13/23 12:07 37.0 C 76 18 138/91 96 Room Air 06/13/23 08:40 37.1 C 87 18 146/92 H 97 Room Air 06/13/23 08:39 72 06/13/23 06:23 37.2 C 67 18 139/82 97 Room Air Laboratory Results 06/12/23 17:52 06/13/23 05:48 Chest X-Ray 06/12/23 17:22 XR chest 1V portable CLINICAL HISTORY: Cough. Fever. COMPARISON STUDY: Chest CT July 02, 2013. Chest radiograph November 22, 2021. FINDINGS: Lung volumes are normal. Lungs are clear. There is no pneumothorax or pleural effusion. Cardiac size is normal. Mediastinal contours are normal. There is no evidence for pulmonary edema. IMPRESSION: No acute cardiopulmonary findings. ACT 112: Negative or not required by law. Electronically signed by: Mynor Hanna M.D. 06/12/2023 5:47 PM KUB X-Ray 06/12/23 17:22 KUB CLINICAL HISTORY: Vomiting. COMPARISON STUDY: CT of the abdomen and pelvis and KUB November 21, 2021. FINDINGS: The bowel gas pattern is normal. There is a moderate amount of stool within the ascending colon. Overall, amount of stool within the colon and rectum is within normal limits. No urinary calculi are identified. No evidence for free air on supine exam. IMPRESSION: Unremarkable KUB. No evidence for a bowel obstruction. ACT 112: Negative or not required by law. Electronically signed by: Mynor Hanna M.D. 06/12/2023 5:[address] 06/12/23 22:33 CT SCAN OF THE PARANASAL SINUSES CLINICAL HISTORY: Sinus headache. Left facial pain. COMPARISON STUDY: No priors. TECHNIQUE: High-resolution CT scan of the paranasal sinuses is performed. Images are reviewed in the axial, sagittal, and coronal planes. IV contrast was not administered for this examination. A dose lowering technique was utilized adhering to the principles of ALARA. CT DOSE: 679.21 mGy.cm FINDINGS: Maxillary antra: A 7 mm retention cyst is seen on the left. Otherwise clear bilaterally. Anterior ethmoid sinuses: Clear. Posterior ethmoid sinuses: Clear. Sphenoid sinuses: Trace mucosal thickening is seen on the left. Clear on the right. Frontal sinuses: Clear. Ostiomeatal complexes: Patent bilaterally. Frontoethmoidal and sphenoethmoidal recesses: Patent bilaterally. Carotid arteries: The carotid arteries are protuberant but covered and are without septal attachments. Ethmoid roofs: The ethmoid roofs are symmetric. Nasal turbinates: There is clem bullosa of the right middle nasal turbinate. Nasal septum: There is leftward deviation of the bony nasal septum. Optic nerves: Covered. Orbits: The bony orbits are intact. Orbital contents are normal in appearance. Calvarium: The imaged calvarium is normal in appearance Mastoid air cells: Well pneumatized. Brain parenchyma: Normal as visualized. IMPRESSION: No significant paranasal sinus disease is identified. ACT 112: Negative or not required by law. Electronically signed by: Leobardo Laird M.D. 06/13/2023 10:29 AM PG Care Time/CCT Total # of Minutes Spent Total Time Spent with Patient: Total time spent is greater than 50% in coordination of care (as documented) at patient's floor/unit and/or counseling patient: Coding Level of Care Code 19915 SUB INP/OBS CARE 2/35MIN Diagnoses COVID-19 virus infection U07.1 ROBERT (acute kidney injury) N17.9 Complete left bundle branch block I44.7 IgA nephropathy N02.8
[2023-06-13] MEDS: ATORVASTATIN 20 MG TAB PO SCH (20:30)
[2023-06-14 06:50] LABS: BUN Creatinine Ratio 9.3 (10-20); Calcium 8.5 mg/dl (8.6-10.3); Creatinine Clr Calc Pharmacy 20.3 ml/min; Est GFR (African American) 19.3 ml/min; Est GFR (Non-African American) 16.7 ml/min; Potassium 4.5 mmol/L (3.5-5.1)
[2023-06-14] MEDS: HEPARIN SOD 5,000 UNIT/0.5 ML VIAL SQ SCH (06:51)
[2023-06-14] MEDS: SODIUM CHLORIDE 0.45 % 1,000 ML IV SCH (06:51)
[2023-06-14] MEDS: allopurinoL 100 MG TAB PO SCH (08:37)
[2023-06-14] MEDS: guaiFENesin 600 MG TABCR PO SCH (08:37)
[2023-06-14] MEDS: buPROPion SR 100 MG TABCR PO SCH (08:37)
[2023-06-14] MEDS: OXYMETAZOLINE 0.05% 30 ML BTL SCH (08:38)
[2023-06-14] MEDS: FLUTICASONE PROPIONATE NA SPR 16 GM BTL SCH (08:38)
--- NOTE | 2023-06-14 11:23 | Nephrology Progress Note ---
Date of Service June 14, 2023 Assessment & Plan (1) ROBERT (acute kidney injury): Plan: Creatinine stable. Euvolemic. Tolerating adequate PO intake. BP acceptable. Electrolytes remain normal. No current indication for dialysis. Medications are dosed appropriately for kidney dysfunction. I reviewed the plan of care with Dr. Pinzon this AM. The importance of close outpatient follow up with nephrology was discussed with Anoop this morning. Discharge home is anticipated today with outpatient follow up with me in the [facility] [place] [place] nephrology clinic within 2 weeks. Repeat BMP next week. (2) Chronic kidney disease: Plan: CKD IV-V A2 attributed to biopsy proven IgA nephropathy. No history of immune modifying therapy. Close outpatient follow up will be required. Ultimately, Anoop may benefit from restaging with a repeat biopsy. Close outpatient follow up will be arranged. (3) IgA nephropathy: Plan: No evidence of RPGN at this time. Unfortunately, advanced CKD and unclear if he will benefit from immune modifying therapy. Certainly RAAS blockade and SGLT2i may be considered in the future. No additional therapy indicted at this time. (4) Anemia: Plan: Anemia of CKD. Hgb >11; RA therapy held. (5) Hyperparathyroidism: Plan: Remains on calcitriol. Calcium acceptable. Tolerating therapy well. (6) COVID-19: Plan: Symptomatically improving. Reasonable to follow up in the clinic in 2-3 weeks. Admission and Anticipated Discharge Date Admission Date: June 12, 2023 Subjective No acute events overnight. Remains afebrile. Breathing comfortably. Reports overall improvement in symptoms. Anoop is hopeful to return home today. He denies fluid retention or edema. Review of Systems Review of Systems: All systems reviewed & are unremarkable except as noted in HPI & below Physical Exam Constitutional: well developed; no acute distress Eyes: no scleral abnormality and no corneal abnormality ENMT: Mouth: no oral mucosal abnormality and oral mucous membranes not dry Neck: normal visual inspection and trachea midline Respiratory: normal respiratory effort Auscultation: lungs clear to auscultation bilaterally Cardiovascular: Rate/Rhythm: regular rate Heart Sounds: normal S1 and normal S2 Extremities: no edema Musculoskeletal: Extremities: no cyanosis and no clubbing Skin: normal turgor; no jaundice Neurologic: Motor/Sensory: no tremor and no asterixis Psychiatric: Orientation: alert and oriented x 3 Results & Data Vital Signs (Past 12 Hours) Vital Signs Temp Pulse Pulse Pulse Resp BP BP 06/14/23 10:55 36.8 C 72 76 18 134/82 137/84 06/14/23 08:00 72 06/14/23 07:53 36.8 C 72 18 137/84 06/14/23 02:47 37.3 C 69 18 139/85 06/14/23 00:34 37.1 C 67 18 112/80 06/14/23 00:00 79 Pulse Ox O2 Del Method 06/14/23 10:55 100 06/14/23 08:00 06/14/23 07:53 100 Room Air 06/14/23 02:47 98 Room Air 06/14/23 00:34 98 Room Air 06/14/23 00:00 Laboratory Results Laboratory Results - last 24 hr 06/14/23 05:57 Sodium 136 Potassium 4.5 Chloride 110 H Carbon Dioxide 20 L Anion Gap 6 BUN 38 H Creatinine 4.10 H Est Cr Clr Drug Dosing 20.3 Est GFR ( Amer) 19.3 Est GFR (Non-Af Amer) 16.7 BUN/Creatinine Ratio 9.3 L Glucose 104 H Calcium 8.5 L PG Care Time/CCT Total # of Minutes Spent Total Time Spent with Patient: Total time spent is greater than 50% in coordination of care (as documented) at patient's floor/unit and/or counseling patient: Coding Level of Care Code 94958 SUB INP/OBS CARE 3/50MIN Diagnoses ROBERT (acute kidney injury) N17.9 Chronic kidney disease N18.9 Chronic kidney disease stage: unspecified stage IgA nephropathy N02.8 Anemia D64.9 Hyperparathyroidism E21.3 COVID-19 U07.1 (2) Chronic kidney disease Chronic kidney disease stage: unspecified stage Qualified Code(s): N18.9 - Chronic kidney disease, unspecified
--- NOTE | 2023-06-14 18:29 | Discharge Summary ---
Date of Service June 14, 2023 Admission HPI Per Admitting Provider Is a 42-year-old male with a history of IgA nephropathy who presents to the hospital today with complaints of nausea vomiting diarrhea chills and fever which started earlier today. According to the patient, he was exposed to 2 people at work who had flulike symptoms. He usually follows up with his family doctor who monitors his IgA nephropathy but said he has not been to see his doctor. He tried ybgx-opo-fmirntr medications but did not obtain any relief so he decided to come to the hospital further management. He has not been eating and drinking okay. Here in emergency department temperature was 100.9, saturating well on room air blood pressure 135/92 COVID-19 was positive serum creatinine was 4.17 from 3.49 a couple of months ago. An EKG was done which showed evidence of questionable new left bundle branch block. Patient be admitted to the hospital further management Principal Diagnosis ROBERT on CKD-4 due to COVID-19 causing acute gastroenteritis Discharge Exam PHYSICAL EXAMINATION Last 24h vital signs reviewed, see documentation in flowsheet Unchanged normal exam 06/14: General: comfortable appearing, no distress, pleasant HEENT: Normocephalic, atraumatic, pupils round and equal, sclerae anicteric, no conjunctival injection, moist mucus membranes Lungs: Normal respiratory effort. Clear to auscultation bilaterally. No RRW Heart: Regular rate and rhythm, no murmurs. No JVD Abdomen: Soft, nondistended. Bowel sounds present. Extremities: Warm, dry, well-perfused. No extremity edema. Neuro: Alert and oriented x 4, face symmetric, moves 4 extremities well Psych: Normal affect and behavior Discharge Data Allergies Allergy/AdvReac Type Severity Reaction Status Date / Time oxycodone AdvReac Mild ITCHY Verified 06/12/23 19:02 prednisone AdvReac hoover Verified 06/12/23 19:02 Consultations 06/12/23 19:10 ED Decision to Admit Stat 06/12/23 22:27 Consult Nephrology Routine 06/13/23 15:24 Consult [facility] lifestyle coordinator Routine Ordered Studies 06/12/23 22:33 CT sinus wo con Routine Chest X-Ray 06/12/23 17:22 XR chest 1V portable CLINICAL HISTORY: Cough. Fever. COMPARISON STUDY: Chest CT July 02, 2013. Chest radiograph November 22, 2021. FINDINGS: Lung volumes are normal. Lungs are clear. There is no pneumothorax or pleural effusion. Cardiac size is normal. Mediastinal contours are normal. There is no evidence for pulmonary edema. IMPRESSION: No acute cardiopulmonary findings. ACT 112: Negative or not required by law. Electronically signed by: Mynor Hanna M.D. 06/12/2023 5:47 PM KUB X-Ray 06/12/23 17:22 KUB CLINICAL HISTORY: Vomiting. COMPARISON STUDY: CT of the abdomen and pelvis and KUB November 21, 2021. FINDINGS: The bowel gas pattern is normal. There is a moderate amount of stool within the ascending colon. Overall, amount of stool within the colon and rectum is within normal limits. No urinary calculi are identified. No evidence for free air on supine exam. IMPRESSION: Unremarkable KUB. No evidence for a bowel obstruction. ACT 112: Negative or not required by law. Electronically signed by: Mynor Hanna M.D. 06/12/2023 5:[address] 06/12/23 22:33 CT SCAN OF THE PARANASAL SINUSES CLINICAL HISTORY: Sinus headache. Left facial pain. COMPARISON STUDY: No priors. TECHNIQUE: High-resolution CT scan of the paranasal sinuses is performed. Images are reviewed in the axial, sagittal, and coronal planes. IV contrast was not administered for this examination. A dose lowering technique was utilized adhering to the principles of ALARA. CT DOSE: 679.21 mGy.cm FINDINGS: Maxillary antra: A 7 mm retention cyst is seen on the left. Otherwise clear bilaterally. Anterior ethmoid sinuses: Clear. Posterior ethmoid sinuses: Clear. Sphenoid sinuses: Trace mucosal thickening is seen on the left. Clear on the right. Frontal sinuses: Clear. Ostiomeatal complexes: Patent bilaterally. Frontoethmoidal and sphenoethmoidal recesses: Patent bilaterally. Carotid arteries: The carotid arteries are protuberant but covered and are without septal attachments. Ethmoid roofs: The ethmoid roofs are symmetric. Nasal turbinates: There is clem bullosa of the right middle nasal turbinate. Nasal septum: There is leftward deviation of the bony nasal septum. Optic nerves: Covered. Orbits: The bony orbits are intact. Orbital contents are normal in appearance. Calvarium: The imaged calvarium is normal in appearance Mastoid air cells: Well pneumatized. Brain parenchyma: Normal as visualized. IMPRESSION: No significant paranasal sinus disease is identified. ACT 112: Negative or not required by law. Electronically signed by: Leobardo Laird M.D. 06/13/2023 10:29 AM 06/12/23 17:52 06/14/23 05:57 Hospital Course (1) COVID-19 virus infection: Symptoms: fever chills nausea vomiting. No dyspnea chest pain or hypoxia -steroids/RDV not indicated, renal function too poor for paxlovid/RDV -supportive care, improved significantly fever and N/V/D resolved, tolerating good po on discharge -added flonase and afrin for sinus symptoms, reviewed sinus CT and no significant findings -had primary vaccine series and one prior episode of COVID a few years ago, encouraged him to follow up for flu vaccine and covid booster when recovered (2) ROBERT (acute kidney injury): ROBERT on CKD-4 due to IgA nephropathy, followed by Dr. Toth in clinic. Baseline around 3.5 Cr same after hydration with IV fluids but has good UOP, prerenal ROBERT -discussed with Dr. Toth - he will schedule him outpatient follow up in x 2 weeks -encouraged Anoop to keep following up (3) Complete left bundle branch block: New left bundle branch block seen on EKG, last EKG in system was 2020 however No evidence of ACS, reviewed echo with summer camp counselor - systolic motion as expected with LBBB Made referral to cardiology for outpatient workup (4) IgA nephropathy: Total Time Total Time Spent Total Time Spent (In Minutes): 35 minutes spent coordinating care for discharge Discharge Plan Discharge Items Patient Disposition: Home - Self-Care Reason For Visit: COVID Discharge Diagnosis: Acute gastroenteritis due to COVID-19, ROBERT on CKD-4 Condition on Discharge: Fair Activity: Resume your previous activity Non-emergency contact: Primary Care Provider and Java Systems Analyst Call non-emergency contact if: you have any medication questions Follow-up/Referrals: Gilberto Choudhary III, CRNP [Primary Care Provider] - 06/22/23 4:00 pm Jose Toth DO [Physician] - Diet: Regular Addtl Attending Provider Instructions: You have COVID-19 which caused nausea / vomiting / diarrhea and dehydration The CDC recommends isolating from others for five days after onset of COVID. That would be 06/17/23. Wear a mask around others and wash your hands frequently. If you have bothersome nasal/sinus drainage you can use tdqo-cin-iyzylsu nose sprays. These include: fluticasone (flonase) for 1-2 weeks as directed - nasal steroid afrin for two more days as directed. Prolonged use of afrin can cause rebound nasal stuffiness, so its best to use it for a maximum of three days your sinus CT was normal Seek medical attention if you develop shortness of breath or chest pain, are getting dehydrated again, or have low urine output Follow up with Dr. Toth for your kidney disease. He is working on scheduling you an appointment after . You had a change in your EKG compared to 2020. A heart ultrasound (Echo) was reassuring. I made a referral to cardiology for further evaluation as an outpatient - the clinic should be contacting you to schedule. Addtl Canary Raiser Provider Instructions: Home Isolation COVID-19 Instructions The following information about Home Isolation is from the CDC Website: https://www.cdc.gov/coronavirus/2019-ncov/hcp/jahhwguq-zexmsxj-zbxxtz.html Stay home except to get medical care People who are mildly ill with COVID-19 are able to isolate at home during their illness. You should restrict activities outside your home, except for getting medical care. Do not go to work, school, or public areas. Avoid using public transportation, ride-sharing, or taxis. Separate yourself from other people and animals in your home People: As much as possible, you should stay in a specific room and away from other people in your home. Also, you should use a separate bathroom, if available. Animals: You should restrict contact with pets and other animals while you are sick with COVID-19, just like you would around other people. Although there have not been reports of pets or other animals becoming sick with COVID-19, it is still recommended that people sick with COVID-19 limit contact with animals until more information is known about the virus. When possible, have another member of your household care for your animals while you are sick. If you are sick with COVID-19, avoid contact with your pet, including petting, snuggling, being kissed or licked, and sharing food. If you must care for your pet or be around animals while you are sick, wash your hands before and after you interact with pets and wear a face mask. Call ahead before visiting your doctor If you have a medical appointment, call the healthcare provider and tell them that you have or may have COVID-19. This will help the healthcare providers office take steps to keep other people from getting infected or exposed. Wear a face mask You should wear a face mask when you are around other people (e.g., sharing a room or vehicle) or pets and before you enter a healthcare providers office. If you are not able to wear a face mask (for example, because it causes trouble breathing), then people who live with you should not stay in the same room with you, or they should wear a face mask if they enter your room. Cover your coughs and sneezes Cover your mouth and nose with a tissue when you cough or sneeze. Throw used tissues in a lined trash can. Immediately wash your hands with soap and water for at least 20 seconds or, if soap and water are not available, clean your hands with an alcohol-based hand estimator printing that contains at least 60% alcohol. Clean your hands often Wash your hands often with soap and water for at least 20 seconds, especially after blowing your nose, coughing, or sneezing; going to the bathroom; and before eating or preparing food. If soap and water are not readily available, use an alcohol-based hand estimator printing with at least 60% alcohol, covering all surfaces of your hands and rubbing them together until they feel dry. Soap and water are the best option if hands are visibly dirty. Avoid touching your eyes, nose, and mouth with unwashed hands. Avoid sharing personal household items You should not share dishes, drinking glasses, cups, eating utensils, towels, or bedding with other people or pets in your home. After using these items, they should be washed thoroughly with soap and water. Clean all high-touch surfaces everyday High touch surfaces include counters, tabletops, doorknobs, bathroom fixtures, toilets, phones, keyboards, tablets, and bedside tables. Also, clean any surfaces that may have blood, stool, or body fluids on them. Use a household cleaning spray or wipe, according to the label instructions. Labels contain instructions for safe and effective use of the cleaning product including precautions you should take when applying the product, such as wearing gloves and making sure you have good ventilation during use of the product. Monitor your symptoms Seek prompt medical attention if your illness is worsening (e.g., difficulty breathing).Beforeseeking care, call your healthcare provider and tell them that you have, or are being evaluated for, COVID-19. Put on a face mask before you enter the facility. These steps will help the healthcare providers office to keep other people in the office or waiting room from getting infected or exposed. Ask your healthcare provider to call the local or state health department. Persons who are placed under active monitoring or facilitated self- monitoring should follow instructions provided by their local health department or occupational health professionals, as appropriate. When working with your local health department check their available hours. If you have a medical emergency and need to call 911, notify the dispatch personnel that you have, or are being evaluated for COVID-19. If possible, put on a face mask before emergency medical services arrive. Discontinuing home isolation Patients with confirmed COVID-19 should remain under home isolation precautions until the risk of secondary transmission to others is thought to be low. The decision to discontinue home isolation precautions should be made on a [id number] basis, in consultation with healthcare providers and [facility] and local health departments. Pending Studies at Discharge: No Stand-Alone Forms: [facility], Work/School Release, Smoking Cessation Medications and DC Order Prescriptions: Continued calcitriol 0.25 mcg capsule 0.25 mcg PO .COMPLEX Qty: 36 2RF Rx Instructions: 0.25 mcg PO every thursday, thursday, and thursday; allopurinol 100 mg tablet 100 mg PO DAILY Qty: 90 3RF atorvastatin 20 mg tablet 20 mg PO QPM Qty: 30 2RF hydroxyzine HCl 50 mg tablet 50 mg PO TID PRN (Reason: anxiety) Qty: 30 3RF bupropion HCl [Wellbutrin SR] 100 mg tablet sustained-release 12 hr 100 mg PO BID Qty: 180 3RF acetaminophen 500 mg Tablet 500 mg PO Q6H PRN (Reason: fever/pain) diphenhydramine HCl [Benadryl] 25 mg Capsule 25 mg PO TID PRN (Reason: Allergy Symptoms) guaifenesin [Mucinex] 600 mg Tablet Extended Release 12hr 600 mg PO BID quetiapine [Seroquel] 25 mg tablet 25 mg PO BID PRN (Reason: INSOMNIA/Anxiety) Discharge Orders: Discharge Order (Routine); Ordered 06/14/23 Ordered By: Lucía Pinzon Admission Data Admit Date/Time: 06/12/23 19:31 Attending Provider: Lucía Pinzon Admit Provider: Betsy Caballero Primary Care Provider: Gilberto Choudhary III Other Providers: Betsy Caballero; Debbie Méndez Other Interventions: Discharge Summary Assessment (RN) Last Done: 06/14/23 10:55 Coding Level of Care Code 61421 INP/OBS DISCH >30 MIN Diagnoses COVID-19 virus infection U07.1 ROBERT (acute kidney injury) N17.9 Complete left bundle branch block I44.7 IgA nephropathy N02.8
[2023-06-15] MEDS ORDERED: CALCITRIOL 0.25 MCG CAPSULE PO SCH (09:00)
--- NOTE | 2023-06-15 18:57 | Electrocardiogram Report ---
Test Reason : Blood Pressure : / mmHG Vent. Rate : 084 BPM Atrial Rate : 084 BPM P-R Int : 136 ms QRS Dur : 142 ms QT Int : 382 ms P-R-T Axes : 070 -16 088 degrees QTc Int : 451 ms Normal sinus rhythm Left bundle branch block Abnormal ECG When compared with ECG of 31-OCT-2020 12:31, Vent. rate has increased BY 35 BPM Left bundle branch block is now Present Confirmed by Jacques Sheffield ([id number]) on 06/15/2023 6:57:37 PM Referred By: REFERRED SELF Confirmed By:Jacques Sheffield
--- NOTE | 2023-06-17 05:50 | Electrocardiogram Report ---
Test Reason : Blood Pressure : / mmHG Vent. Rate : 064 BPM Atrial Rate : 064 BPM P-R Int : 144 ms QRS Dur : 128 ms QT Int : 400 ms P-R-T Axes : 079 -17 089 degrees QTc Int : 412 ms Normal sinus rhythm Left bundle branch block Abnormal ECG When compared with ECG of 12-JUN-2023 18:52, No significant change was found Confirmed by Jacques Sheffield ([id number]) on 06/17/2023 5:49:48 AM Referred By: REFERRED SELF Confirmed By:Jacques Sheffield
== END 2023-06-14 11:55 | disposition home or self-care (01) | DRG 178 ==
LOC: ED 16:25 → SUATTDRO 19:31 → 2E 19:31

== ENCOUNTER 2025-05-23 06:10 | Observation (INO) ==
[2025-05-23 06:55] LABS: Hematocrit (blood only) 35.9 % (42.0-52.0); Hemoglobin 12.1 g/dl (14.0-18.0); Immature Granulocytes # (auto) 0.02 K/uL (0.01-0.20); Immature Granulocytes % (auto) 0.3 %; Mean Corpuscular Hemoglobin 29.2 pg (25.0-34.0); Mean Corpuscular Volume 86.5 fL (80.0-100.0); Platelet Count 282 K/uL (130-400); RDW Standard Deviation 39.9 fL (36.4-46.3); Red Blood Count 4.15 M/uL (4.70-6.10); White Blood Count 6.98 K/ul (4.8-10.8)
[2025-05-23] MEDS: LORazepam 1 MG/1 ML SYR ED Inj Use IV STA (07:17)
[2025-05-23 07:19] LABS: Alanine Aminotransferase 11 U/L (7-52); Albumin Globulin Ratio 1.3 (0.9-2); Albumin Level 4.0 gm/dl (3.4-5.0); Alkaline Phosphatase 95 U/L (34-104); Anion Gap 14 (3-11); Bilirubin,Total 0.5 mg/dl (0.2-1.0); Blood Urea Nitrogen 45 mg/dl (6-23); Calcium 10.2 mg/dl (8.6-10.3); Carbon Dioxide 22 mmol/L (21-32); Chloride 98 mmol/L (98-107); Creatinine Clr Calc Pharmacy 11.2 ml/min; Globulin 3.2 gm/dl (2.5-4.0); Glucose 103 mg/dl (70-99(Fasting)); Lipase 56 U/L (11-82); Potassium 4.8 mmol/L (3.5-5.1); Sodium 134 mmol/L (136-145); Total Protein 7.2 gm/dl (6.0-8.3)
--- NOTE | 2025-05-23 07:33 | Emergency Department Note ---
Impression & Plan ROBERT (acute kidney injury), Acute renal failure, Abnormal weight loss ED Provider Note NAME: RAKESH MOREIRA AGE: 44 SEX: M : 1980 ARRIVES VIA: Walk-In INFORMANT: Patient, ED PROVIDER(S): Analisa Quinteros MD CHIEF COMPLAINT: Constipation HPI: This is a 44-year-old male with history of stage IV CKD presenting for constipation. Patient is extremely anxious as per self-report. He reports feeling constipated for the past few days/weeks. He was seen at an outside hospital a few weeks ago was diagnosed with constipation. He has tried senna, Colace, Dulcolax, MiraLAX and mineral oil enema without relief. Patient does have reported eating very little in these past few weeks. He states he is under 500 shana a day due to no appetite. He has been losing significant weight. He feels abdominal discomfort. ROS: See above HPI for pertinent positives & negatives. A total of 10 systems reviewed and were otherwise negative. PAST MEDICAL HISTORY: See Below PAST SURGICAL HISTORY: See Below FAMILY HISTORY: See Below SOCIAL HISTORY: See Below HOME MEDICATIONS: See Below ALLERGIES: See Below VITALS: See Below PHYSICAL EXAMINATION: General: resting comfortably in no acute distress Head: Normocephalic and atraumatic Eyes: Normal inspection, extraocular muscles intact Ear, nose, throat: Normal external exam Neck: Normal range of motion Respiratory: lungs clear to auscultation bilaterally Cardiovascular: Regular rate/rhythm, no murmur GI: soft, nontender, no guarding or rebound Extremities: nontender, moves all extremities Neuro: The patient awake and alert, appropriately conversive, no focal deficits, symmetric faces Skin: Warm, dry, and intact MEDICAL DECISION MAKING: This is a 44-year-old male with history of stage IV CKD presented for constipation. Patient has noted significant weight loss over the past few weeks. Patient states he has extreme fear of hospitals and is currently tremulous. Will give Ativan at this time. - Blood work reveals no leukocytosis, slight anemia is noted. Creatinine uptrending to this 6.3, previous baseline around 4. Patient tells me his outpatient records reveal creatinine of around 5.3 and outside hospital 2 weeks ago - Overall patient appeared significantly improved after giving 0.5 mg of IV Ativan for anxiety. - Due to worsening acute on chronic kidney injury, will admit the patient. Differential diagnosis: Dehydration, anxiety, constipation, SBO, CKD Independent History obtained from: Girlfriend Diagnostics interpreted by me: ECG: None Cardiac Monitoring: An order was placed for continuous cardiac monitoring. The monitor shows a rate of 76 with sinus rhythm. Past Med/Surg History Problem List (Updated 05/23/25 @ 15:45 by Analisa Quinteros MD) Abnormal weight loss (Acute) Acute renal failure (Acute) ROBERT (acute kidney injury) (Acute) Severe protein-calorie malnutrition Weight loss Change in bowel habits Constipation Medical History Insomnia Anxiety disorder Depression IgA nephropathy Chronic kidney disease Hyperparathyroidism Anemia Borderline personality disorder Hypercholesterolemia Complete left bundle branch block COVID-19 Gout (11/30/12) Surgical History S/P hernia surgery S/P wisdom tooth extraction H/O exploratory laparotomy age 19; his kidney disease was found during that hospitalization Family History Brother Bipolar disorder Denies family history of Ovarian cancer Prostate cancer Myocardial infarction Breast cancer Colorectal cancer Social History Smoking Status: Never smoker Tobacco Type: E-cigarettes / Vaping (vaping cbd) Second Hand Exposure: No; Do You Dip or Chew Tobacco: No; Hx Alcohol Use: No Hx Substance Use: No Preferred Language: Lao Communication Ability: Effective Visual Impairment: No Limitations Hearing Ability: Normal Solderer Assembler Required: No Beliefs That Will Affect Care: None marital status: Current Living Situation: Other Current Living Situation Comment: significant other current occupational status: employed current occupation: [employer] How many Children do You have: 1 How many Children do You have Comment: son Other Information That Helps Us Care for You: No Feels Safe at Home: Yes Safety Concerns: Feels Safe At This Time Childhood Exposure to Second-Hand Smoke: No Diet: regular caffeine: Yes Dental Care, Regularly: Yes Physical Activity Frequency: Daily Seatbelt Use: always Sunscreen Use: Yes Assistive Devices: Contacts, Denture - Upper and Denture - Lower Allergies Allergies Allergy/AdvReac Type Severity Reaction Status Date / Time oxycodone AdvReac Mild ITCHY Verified 05/23/25 08:34 prednisone AdvReac hoover Verified 05/23/25 08:34 Home Meds Home Medications Medication Instructions Recorded Confirmed atorvastatin 20 mg tablet 20 mg PO HS 05/23/25 05/23/25 bupropion HCl 100 mg tablet 100 mg PO QPM 05/23/25 05/23/25 multivitamin 1 tab PO HS 05/23/25 05/23/25 quetiapine 25 mg tablet (Seroquel) 25 mg PO HS INSOMNIA/Anxiety 05/23/25 05/23/25 Previous Rx's Medication Instructions Recorded hydroxyzine HCl 50 mg tablet 50 mg PO TID PRN anxiety #30 tabs 12/22/24 Results & Data (ED) Vital Signs Vital Signs - 24 hr 05/23/25 06:14 05/23/25 06:22 05/23/25 06:31 Temperature 36.5 C Temperature Source Temporal Artery Scan Pulse Rate 84 69 Pulse Rate [Apical] 69 Pulse Rate from SpO2 Sensor Pulse Rhythm [Apical] Regular Pulse Strength [Apical] Normal Respiratory Rate 16 13 Respiratory Effort / Characteristics Non-Labored Spontaneous Non-Labored Spontaneous Respiratory Depth Normal Normal Respiratory Pattern Regular Blood Pressure 155/92 H Blood Pressure [Right Arm] 168/109 H Blood Pressure Mean 113 Blood Pressure Mean [Right Arm] 128 Blood Pressure Position Sitting Pulse Oximetry 100 100 Oxygen Delivery Method Room Air Room Air Sepsis Recent Fever Within 48 Hours No Sepsis New/Unexplained Change in Mental Status N/A Sepsis Action Taken by Nursing No Action Required 05/23/25 06:42 05/23/25 07:00 05/23/25 07:06 Temperature Temperature Source Pulse Rate 105 H 94 H Pulse Rate [Apical] Pulse Rate from SpO2 Sensor 94 H Pulse Rhythm [Apical] Pulse Strength [Apical] Respiratory Rate 18 Respiratory Effort / Characteristics Respiratory Depth Respiratory Pattern Blood Pressure 149/108 H Blood Pressure [Right Arm] Blood Pressure Mean 119 Blood Pressure Mean [Right Arm] Blood Pressure Position Pulse Oximetry 100 100 Oxygen Delivery Method Room Air Sepsis Recent Fever Within 48 Hours Sepsis New/Unexplained Change in Mental Status Sepsis Action Taken by Nursing 05/23/25 07:36 Temperature Temperature Source Pulse Rate 81 Pulse Rate [Apical] Pulse Rate from SpO2 Sensor 81 Pulse Rhythm [Apical] Pulse Strength [Apical] Respiratory Rate 16 Respiratory Effort / Characteristics Respiratory Depth Respiratory Pattern Blood Pressure Blood Pressure [Right Arm] Blood Pressure Mean Blood Pressure Mean [Right Arm] Blood Pressure Position Pulse Oximetry 97 Oxygen Delivery Method Sepsis Recent Fever Within 48 Hours Sepsis New/Unexplained Change in Mental Status Sepsis Action Taken by Nursing Laboratory Data 05/23/25 06:40 05/23/25 06:40 Lab Results 05/23/25 05/23/25 Range/Units 06:40 08:30 WBC 6.98 (4.8-10.8) K/ul RBC 4.15 L (4.70-6.10) M/uL Hgb 12.1 L (14.0-18.0) g/dl Hct 35.9 L (42.0-52.0) % MCV 86.5 (80.0-100.0) fL MCH 29.2 (25.0-34.0) pg MCHC 33.7 (32.0-36.0) g/dL RDW Std Deviation 39.9 (36.4-46.3) fL RDW Coeff of Segun 12.7 (11.5-14.5) % Plt Count 282 (130-400) K/uL MPV 10.3 (9.4-12.4) fL Immature Gran % (Auto) 0.3 % Neut % (Auto) 56.3 % Lymph % (Auto) 35.5 % Luna % (Auto) 6.6 % Eos % (Auto) 0.7 % Baso % (Auto) 0.6 % Neut # (Auto) 3.93 (1.40-6.50) K/uL Lymph # (Auto) 2.48 (1.20-3.40) K/uL Luna # (Auto) 0.46 (0.11-0.59) K/uL Eos # (Auto) 0.05 (0.00-0.50) K/uL Baso # (Auto) 0.04 (0.00-0.20) K/uL Immature Gran # (Auto) 0.02 (0.01-0.20) K/uL Sodium 134 L (136-145) mmol/L Potassium 4.8 (3.5-5.1) mmol/L Chloride 98 (98-107) mmol/L Carbon Dioxide 22 (21-32) mmol/L Anion Gap 14 H (3-11) BUN 45 H (6-23) mg/dl Creatinine 6.30 H* (0.6-1.4) mg/dl Est Cr Clr Drug Dosing 11.2 ml/min eGFR 10.39 BUN/Creatinine Ratio 7.1 L (10-20) Glucose 103 H (70-99(Fasting)) mg/dl Calcium 10.2 (8.6-10.3) mg/dl Iron 89 (35-175) mcg/dl TIBC 273 (250-450) mcg/dl Transferrin 195 L (200-360) mg/dl Transferrin % Sat 33 (20-50) % Ferritin 232.7 (8-388) ng/ml Total Bilirubin 0.5 (0.2-1.0) mg/dl AST 15 (13-39) U/L ALT 11 (7-52) U/L Alkaline Phosphatase 95 (34-104) U/L C-Reactive Protein < 0.50 (0-0.5) mg/dl Total Protein 7.2 (6.0-8.3) gm/dl Albumin 4.0 (3.4-5.0) gm/dl Globulin 3.2 (2.5-4.0) gm/dl Albumin/Globulin Ratio 1.3 (0.9-2) Lipase 56 (11-82) U/L TSH 3.838 (0.300-4.500) uIu/ml Urine Color Yellow Urine Appearance Cloudy A (Clear) Urine pH 8.0 H (4.5-7.5) Ur Specific Mcclelland 1.006 (1.000-1.030) Urine Protein 2+ H (Negative) Urine Glucose (UA) Negative (Negative) Urine Ketones Negative (Negative) Urine Blood Negative (Negative) Urine Nitrite Negative (Negative) Urine Bilirubin Negative (Negative) Urine Urobilinogen Negative (Negative) Ur Leukocyte Esterase Negative (Negative) Urine WBC (Auto) 0-5 (0-5) /hpf Urine RBC (Auto) 0-2 (0-2) /hpf U Hyaline Cast (Auto) 0-2 (0-2) /lpf U Epithel Cells (Auto) 0-2 (0-2) /hpf Urine Bacteria (Auto) None Seen (None Seen) Urine Comment Administered Medications Acetaminophen (Acetaminophen 325 Mg Tab) 650 mg PO Q4H PRN PRN Reason: Pain or Fever Stop: 06/22/25 11:17 Last Admin: 10/28/25 12:26 Dose: 650 mg Documented By: IAN Dextrose/Sodium Chloride (D5w And Nss) 1,000 mls @ 80 mls/hr IV .[id number] [id number] Stop: 05/26/25 11:17 Last Admin: 05/23/25 12:37 Dose: 80 mls/hr Documented By: IAN Discontinued Medications Lorazepam (Lorazepam 1 Mg/1 Ml Syr Ed Inj Use) 0.5 mg IV ONE STA Stop: 05/23/25 07:07 Last Admin: 05/23/25 07:17 Dose: 0.5 mg Documented By: CEF Imaging Data Radiologist's Impression: Chest/Abdomen X-ray 05/23/25 09:26 XR abdomen 2V w PA chest CLINICAL HISTORY: abd pain COMPARISON STUDY: 06/12/2023 FINDINGS: CHEST: Heart size and pulmonary vasculature are normal. Stable hyperexpanded lungs. No consolidation or pleural effusion seen. No pneumothorax. ABDOMEN: There is moderate retained stool. No bowel obstruction seen. No gross free air. IMPRESSION: No acute findings. ACT 112: Negative or not required by law. Electronically signed by: Yves Beckham M.D. 05/23/2025 10:48 AM Discharge Plan Visit Data Chief Complaint: Constipation Stated Complaint: CONSTIPATION ED Provider: Analisa Quinteros Discharge Problem: ROBERT (acute kidney injury), Acute renal failure, Abnormal weight loss Patient Disposition: Admitted As Inpatient Condition: Fair Discharge Instructions Interventions: ED Discharge Assessment Last Done: 05/23/25 11:18
[2025-05-23 08:44] LABS: Appearance Urine Cloudy (Clear); Bacteria Urine Automated None Seen (None Seen); Cast Urine Automated 0-2 /lpf (0-2); Epithelial Cell Urine Auto 0-2 /hpf (0-2); Glucose Urine UA Negative (Negative); RBC Urine Automated 0-2 /hpf (0-2); WBC Urine Automated 0-5 /hpf (0-5)
--- NOTE | 2025-05-23 09:08 | History & Physical Report ---
Date of Service May 23, 2025 Assessment & Plan (1) Change in bowel habits: (2) Constipation: (3) Weight loss: (4) Severe protein-calorie malnutrition: (5) Insomnia: (6) Anxiety disorder: (7) IgA nephropathy: (8) Chronic kidney disease: (9) Hypercholesterolemia: Plan 44yo male with history of IgA nephropathy with resulting CKD stage 4, gout, hyperlipidemia, hyperparathyroidism, and severe anxiety disorder/insomnia who presents from home with about 3 weeks of severe constipation. His last bowel movement was on 05/07 and was a few hard/firm balls of stool at that time. He went to the [facility] ER on 05/09 due to his constipation and had santacruz- CT of the chest/abd/pelvis. His girlfriend at bedside had a copy of the CT report and this showed mild-moderate constipation but no other acute findings of the abdomen/pelvis. He was discharged and asked to take laxatives for the constipation. Despite use of miralax, senna, colace, dulcolax suppository, and enemas he has yet to have a bowel movement. He is now having lower abdominal discomfort and has had intermittent nausea/vomiting over the last few weeks. #significant change in bowel habits with severe constipation - -symptoms & signs are quite concerning in light of weight loss, inability to eat/drink, etc. -GI consult requested for consideration of colonoscopy +/- EGD -STAT abdominal x-ray series - r/o ileus, SBO, or impaction - but low suspicion for such -provide IV fluids -TSH wnl #weight loss / severe protein calorie malnutrition - -10-15 pounds over 1 month or less -GI consult for colonoscopy +/- EGD -santacruz-CTs at [facility] ER was negative for any pathology #IgA nephropathy / CKD stage 4 - -follows with Dr Jose Toth, [facility] -last nephrology office visit there was discussion about referral to a transplant team at tertiary care -baseline Cr 4's/low 5's -has ROBERT today - he appears volume contracted, IV fluids ordered -BMP am -CT abd/pelvis done 2 weeks ago at [facility] did not show obstruction/hydronephrosis -u/a with proteinuria only #ROBERT - -presenting Cr 6.3 -Cr was 5.3 about 2 weeks ago -Cr about 1 year ago was 4.5 -suspect current ROBERT is due to hypovolemia as he has been unable to eat/drink normally for some time -IV fluids; repeat BMP am #hyperlipidemia - -cont statin #severe anxiety/insomnia - -ativan prn anxiety -seroquel HS -wellbutrin daily -hold hydroxyzine as this medicine can contribute to constipation #DVT proph - -hold on chemical means as he likely will have endoscopies tomorrow #abnormal lungs on CT - -patient is not a cigarette smoker but does vape -lungs are hyperinflated and there are emphysematous changes -etiology? due to vaping? alpha-1 antitrypsin deficiency? History of Present Illness Chief Complaint: severe constipation, lower abdominal discomfort, weight loss Primary Care Provider: Gilberto Choudhary, BRENDA, LEONIDAS Pleasant 44yo male with history of IgA nephropathy with resulting CKD stage 4, gout, hyperlipidemia, hyperparathyroidism, and severe anxiety disorder/insomnia who presents from home with about 3 weeks of severe constipation. His last bowel movement was on 05/07 and was a few hard/firm balls of stool at that time. He went to the [facility] ER on 05/09 due to his constipation and had santacruz-CT of the chest/abd/pelvis. His girlfriend at bedside had a copy of the CT report and this showed mild-moderate constipation but no other acute findings of the abdomen/pelvis. He was discharged and asked to take laxatives for the constipation. Despite use of miralax, senna, colace, dulcolax suppository, and enemas he has yet to have a bowel movement. Over the last 4+ weeks he has had very poor appetite, eating <500 calories/day during this time period. He has had intermittent nausea/vomiting. The latter is typically mucous only. He was given zofran to use on PRN basis from the [facility] ER but it has not helped. Despite the severe constipation he has been passing flatus. He denies pain, but has had discomfort in the lower abdomen. Additionally, over the last 24-48 hours, he has had difficulty voiding. In the ER a PVR was checked and found to be 20cc. Prior to March he has never had issues with constipation or his bowels. Had an EGD 10+ years ago and was wnl to his recollection. Never had colonoscopy. He was to complete a cologuard test in the last year but never completed it. Allergies Allergy/AdvReac Type Severity Reaction Status Date / Time oxycodone AdvReac Mild ITCHY Verified 05/23/25 08:34 prednisone AdvReac hoover Verified 05/23/25 08:34 Home Medications Medication Instructions Recorded Confirmed Type hydroxyzine HCl 50 mg tablet 50 mg PO TID PRN anxiety #30 tabs 12/22/24 05/23/25 Rx atorvastatin 20 mg tablet 20 mg PO HS 05/23/25 05/23/25 History bupropion HCl 100 mg tablet 100 mg PO QPM 05/23/25 05/23/25 History multivitamin 1 tab PO HS 05/23/25 05/23/25 History quetiapine 25 mg tablet (Seroquel) 25 mg PO HS INSOMNIA/Anxiety 05/23/25 05/23/25 History Past Med/Surg History Problem List (Updated 05/23/25 @ 15:45 by Analisa Quinteros MD) Abnormal weight loss (Acute) Acute renal failure (Acute) ROBERT (acute kidney injury) (Acute) Severe protein-calorie malnutrition Weight loss Change in bowel habits Constipation Medical History Insomnia Anxiety disorder Depression IgA nephropathy Chronic kidney disease Hyperparathyroidism Anemia Borderline personality disorder Hypercholesterolemia Complete left bundle branch block COVID-19 Gout (11/30/12) Surgical History S/P hernia surgery S/P wisdom tooth extraction H/O exploratory laparotomy age 19; his kidney disease was found during that hospitalization Family History Brother Bipolar disorder Denies family history of Ovarian cancer Prostate cancer Myocardial infarction Breast cancer Colorectal cancer Social History Smoking Status: Never smoker Tobacco Type: E-cigarettes / Vaping (vaping cbd) Second Hand Exposure: No; Do You Dip or Chew Tobacco: No; Hx Alcohol Use: No Hx Substance Use: No Preferred Language: Burkinan Communication Ability: Effective Visual Impairment: No Limitations Hearing Ability: Normal Customs And Immigration Officer Required: No Beliefs That Will Affect Care: None marital status: Current Living Situation: Other Current Living Situation Comment: significant other current occupational status: employed current occupation: [employer] How many Children do You have: 1 How many Children do You have Comment: son Feels Safe at Home: Yes Childhood Exposure to Second-Hand Smoke: No Diet: regular caffeine: Yes Dental Care, Regularly: Yes Physical Activity Frequency: Daily Seatbelt Use: always Sunscreen Use: Yes Assistive Devices: Contacts, Denture - Upper and Denture - Lower Review of Systems 2 Review of Systems: gen - weight loss, 10-15 pounds last month; very poor appetite last 2-3 weeks; no fevers, no rigors eyes - no ocular complaints HENT - no URI symptoms, no dysphagia CV - no chest pain, no edema pulm - no dyspnea, no WOOD, no cough GI - lower abdominal discomfort, anorexia, early satiety, some nausea, vomiting about 3x's/day for 2-3 weeks; zofran not helping nausea; +constipation for 2-3 weeks -- severe - some difficulty voiding, mild dysuria, no hematuria neuro - frontal headaches x 2-3 weeks, no focal motor weakness skin - no rash endo - no diabetes musculo - no joint pains psych - severe anxiety, insomnia x 2 days Physical Exam 2 Physical Exam: gen - very thin appearing, cachectic, NAD; pleasant eyes - PERRL HENT - MM dry, no lesions, no thrush neck - no JVD, no lymph nodes, no goiter heart - RRR, s1 s2, no murmur lungs - CTA b/l abd - soft NT ND BS+; no HSM; ?palpable stool right side of abdomen?; KATIE deferred ext - no edema, pulses 2+ b/l feet skin - no rash neuro - strength 5/5 x 4 exts, DTRs brisk b/l upper & lower exts psych - a/o x 3, affect wnl Results & Data Results & Data Vital Signs (Past 12 Hours) Vital Signs Temp Pulse Pulse Resp BP BP Pulse Ox 05/23/25 07:36 81 16 97 05/23/25 07:06 94 H 18 100 05/23/25 07:00 149/108 H 05/23/25 06:42 105 H 100 05/23/25 06:31 69 05/23/25 06:22 69 13 168/109 H 100 10/28/25 06:14 36.5 C 84 16 155/92 H 100 O2 Del Method 05/23/25 07:36 05/23/25 07:06 05/23/25 07:00 05/23/25 06:42 Room Air 05/23/25 06:31 05/23/25 06:22 Room Air 05/23/25 06:14 Room Air Laboratory Results Laboratory Results - last 24 hr 05/23/25 05/23/25 06:40 08:30 WBC 6.98 RBC 4.15 L Hgb 12.1 L Hct 35.9 L MCV 86.5 MCH 29.2 MCHC 33.7 RDW Std Deviation 39.9 RDW Coeff of Segun 12.7 Plt Count 282 MPV 10.3 Immature Gran % (Auto) 0.3 Neut % (Auto) 56.3 Lymph % (Auto) 35.5 Banner % (Auto) 6.6 Eos % (Auto) 0.7 Baso % (Auto) 0.6 Neut # (Auto) 3.93 Lymph # (Auto) 2.48 Banner # (Auto) 0.46 Eos # (Auto) 0.05 Baso # (Auto) 0.04 Immature Gran # (Auto) 0.02 Sodium 134 L Potassium 4.8 Chloride 98 Carbon Dioxide 22 Anion Gap 14 H BUN 45 H Creatinine 6.30 H* Est Cr Clr Drug Dosing 11.2 eGFR 10.39 BUN/Creatinine Ratio 7.1 L Glucose 103 H Calcium 10.2 Total Bilirubin 0.5 AST 15 ALT 11 Alkaline Phosphatase 95 Total Protein 7.2 Albumin 4.0 Globulin 3.2 Albumin/Globulin Ratio 1.3 Lipase 56 TSH 3.838 Urine Color Yellow Urine Appearance Cloudy A Urine pH 8.0 H Ur Specific Ringling 1.006 Urine Protein 2+ H Urine Glucose (UA) Negative Urine Ketones Negative Urine Blood Negative Urine Nitrite Negative Urine Bilirubin Negative Urine Urobilinogen Negative Ur Leukocyte Esterase Negative Urine WBC (Auto) 0-5 Urine RBC (Auto) 0-2 U Hyaline Cast (Auto) 0-2 U Epithel Cells (Auto) 0-2 Urine Bacteria (Auto) None Seen Urine Comment Diagnostic Findings Chest/Abdomen X-ray 05/23/25 09:26 XR abdomen 2V w PA chest CLINICAL HISTORY: abd pain COMPARISON STUDY: 06/12/2023 FINDINGS: CHEST: Heart size and pulmonary vasculature are normal. Stable hyperexpanded lungs. No consolidation or pleural effusion seen. No pneumothorax. ABDOMEN: There is moderate retained stool. No bowel obstruction seen. No gross free air. IMPRESSION: No acute findings. ACT 112: Negative or not required by law. Electronically signed by: Yves Beckham M.D. 05/23/2025 10:[address] a/p 05/09 at [facility]: Code Status & VTE Plan Code Status full code PG Care Time/CCT Total # of Minutes Spent Total Time Spent with Patient: Total time spent is greater than 50% in coordination of care (as documented) at patient's floor/unit and/or counseling patient: Coding Level of Care Code 10871 INT INP/OBS CARE 2/55MIN Diagnoses Change in bowel habits R19.4 Constipation K59.00 Weight loss R63.4 Severe protein-calorie malnutrition E43 Insomnia G47.00 Anxiety disorder F41.9 IgA nephropathy N02.8 Chronic kidney disease N18.9 Chronic kidney disease stage: unspecified stage Hypercholesterolemia E78.00 (8) Chronic kidney disease Chronic kidney disease stage: unspecified stage Qualified Code(s): N18.9 - Chronic kidney disease, unspecified
[2025-05-23 10:03] LABS: Thyroid Stimulating Hormone 3.838 uIu/ml (0.300-4.500)
--- NOTE | 2025-05-23 10:50 | XRay Report ---
XR abdomen 2V w PA chest CLINICAL HISTORY: abd pain COMPARISON STUDY: 06/12/2023 FINDINGS: CHEST: Heart size and pulmonary vasculature are normal. Stable hyperexpanded lungs. No consolidation or pleural effusion seen. No pneumothorax. ABDOMEN: There is moderate retained stool. No bowel obstruction seen. No gross free air. IMPRESSION: No acute findings. ACT 112: Negative or not required by law. Electronically signed by: Yves Beckham M.D. 05/23/2025 10:48 AM
[2025-05-23] MEDS ORDERED: MELATONIN 3 MG TAB PO PRN (11:18)
[2025-05-23 11:30] LABS: Iron 89 mcg/dl (35-175); Total Iron Binding Cap Calc 273 mcg/dl (250-450); Transferrin 195 mg/dl (200-360); Transferrin (FE) Percent Satur 33 % (20-50)
[2025-05-23 11:51] LABS: Ferritin 232.7 ng/ml (8-388)
--- NOTE | 2025-05-23 12:02 | Gastrointestinal Consultation ---
Date of Consultation May 23, 2025 Assessment & Plan (1) Change in bowel habits: (2) Weight loss: Plan -Clear liquids today, bowel prep, & NPO after midnight -EGD & colonoscopy on 05/24/25 Supervising Physician Co-Signing Physician Notes Poor oral intake with secondary constipation weight loss. Patient does note significant anxiety and depressive symptoms which may be playing a role. However at age 44 with bowel change profound weight loss proceed with EGD colonoscopy. History of Present Illness Reason for Consultation: Weight loss, bowel habit changes, severe constipation Attending Physician: Lex Donnelly MD History of Present Illness Patient is a 44 yo male with CKD4, HLD, hyperparathyroidism, and severe anxiety who is admitted for constipation. Constipation not responding to Dulcolax, Miralax, Senna, Colace, and an enema. He reportedly was eating very little due to feeling full and nauseated (<500 calories daily). He was at a [facility] ER less than 2 weeks ago and a had a CT scan that showed constipation but no other concerns. He has some intermittent vomiting. He notes no bowel movement in >1 week. There is some lower abdominal discomfort, but no significant pain. The change in his bowel habits is abrupt. He notes he was moving his bowels without issue prior to March. No history of a colonoscopy. No pertinent family history. KUB: CHEST: Heart size and pulmonary vasculature are normal. Stable hyperexpanded lungs. No consolidation or pleural effusion seen. No pneumothorax. ABDOMEN: There is moderate retained stool. No bowel obstruction seen. No gross free air. IMPRESSION: No acute findings. Allergies Allergy/AdvReac Type Severity Reaction Status Date / Time oxycodone AdvReac Mild ITCHY Verified 05/23/25 08:34 prednisone AdvReac hoover Verified 05/23/25 08:34 Home Medications Medication Instructions Recorded Confirmed Type hydroxyzine HCl 50 mg tablet 50 mg PO TID PRN anxiety #30 tabs 12/22/24 05/23/25 Rx atorvastatin 20 mg tablet 20 mg PO HS 05/23/25 05/23/25 History bupropion HCl 100 mg tablet 100 mg PO QPM 05/23/25 05/23/25 History multivitamin 1 tab PO HS 05/23/25 05/23/25 History quetiapine 25 mg tablet (Seroquel) 25 mg PO HS INSOMNIA/Anxiety 05/23/25 05/23/25 History Patient History Medical History Insomnia Anxiety disorder Depression IgA nephropathy Chronic kidney disease Hyperparathyroidism Anemia Borderline personality disorder Hypercholesterolemia Complete left bundle branch block COVID-19 Gout (11/30/12) Surgical History S/P hernia surgery S/P wisdom tooth extraction H/O exploratory laparotomy age 19; his kidney disease was found during that hospitalization Family History Brother Bipolar disorder Denies family history of Ovarian cancer Prostate cancer Myocardial infarction Breast cancer Colorectal cancer Social History Smoking Status: Never smoker Tobacco Type: E-cigarettes / Vaping (vaping cbd) Second Hand Exposure: No; Do You Dip or Chew Tobacco: No; Hx Alcohol Use: No Hx Substance Use: No Preferred Language: Occitan Communication Ability: Effective Visual Impairment: No Limitations Hearing Ability: Normal Legal Support Specialist Required: No Beliefs That Will Affect Care: None marital status: Current Living Situation: Other Current Living Situation Comment: significant other current occupational status: employed current occupation: [employer] How many Children do You have: 1 How many Children do You have Comment: son Other Information That Helps Us Care for You: No Feels Safe at Home: Yes Safety Concerns: Feels Safe At This Time Childhood Exposure to Second-Hand Smoke: No Diet: regular caffeine: Yes Dental Care, Regularly: Yes Physical Activity Frequency: Daily Seatbelt Use: always Sunscreen Use: Yes Assistive Devices: Contacts, Denture - Upper and Denture - Lower Review of Systems Constitutional: no fever and no chills Respiratory: no cough and no dyspnea Cardiovascular: no chest pain Gastrointestinal: + change in bowel habits and + constipat ion; no abdominal pain and no blood in stools Physical Exam Constitutional: well developed Respiratory: normal respiratory effort Cardiovascular: Rate/Rhythm: regular rate Gastrointestinal (Abdomen): normal bowel sounds, soft, nontender, no hepa tosplenomegaly Psychiatric: Orientation: alert and oriented x 3 Results & Data Vital Signs (Past 12 Hours) Vital Signs Temp Pulse Pulse Resp BP BP Pulse Ox 05/23/25 11:34 80 12 151/104 H 98 05/23/25 07:36 81 16 97 05/23/25 07:06 94 H 18 100 05/23/25 07:00 149/108 H 05/23/25 06:42 105 H 100 05/23/25 06:31 69 05/23/25 06:22 69 13 168/109 H 100 05/23/25 06:14 36.5 C 84 16 155/92 H 100 O2 Del Method 05/23/25 11:34 Room Air 05/23/25 07:36 05/23/25 07:06 05/23/25 07:00 05/23/25 06:42 Room Air 05/23/25 06:31 05/23/25 06:22 Room Air 05/23/25 06:14 Room Air PG Care Time/CCT Total # of Minutes Spent Total Time Spent with Patient: Total time spent is greater than 50% in coordination of care (as documented) at patient's floor/unit and/or counseling patient: Coding Level of Care Code 48587 IN/OBS CONSULT LVL 4,60M Diagnoses Change in bowel habits R19.4 Weight loss R63.4
[2025-05-23] MEDS: ACETAMINOPHEN 325 MG TAB PO PRN (12:26)
[2025-05-23] MEDS: D5W AND NSS 1,000 ML IV SCH (12:37)
[2025-05-23] MEDS: LORazepam Inj 0.25 MG in SYRINGE 0.125 ML IV STA (17:35)
[2025-05-23] MEDS: LAVAGE SOLUTION 4000ML PO SCH (17:35)
[2025-05-23] MEDS: ATORVASTATIN 20 MG TAB PO SCH (20:07)
[2025-05-23] MEDS: MULTIVITAMIN TAB PO SCH (20:08)
[2025-05-23] MEDS ORDERED: LORazepam 0.5 MG TAB PO PRN (20:18)
[2025-05-24] MEDS: ONDANSETRON INJ 2 MG/ML 2 ML VIAL IV PRN (03:45)
[2025-05-24] MEDS ORDERED: Nursing to Pharmacy Communication SCH (09:15)
[2025-05-24] MEDS: LORazepam 1 MG TAB PO PRN ×2 (09:57→17:36)
--- NOTE | 2025-05-24 10:13 | Hospitalist Progress Note ---
Date of Service May 24, 2025 Assessment & Plan (1) Change in bowel habits: (2) Constipation: (3) Weight loss: (4) Severe protein-calorie malnutrition: (5) Insomnia: (6) Anxiety disorder: (7) IgA nephropathy: (8) Chronic kidney disease: (9) Hypercholesterolemia: Plan 44yo male with history of IgA nephropathy with resulting CKD stage 4, gout, hyperlipidemia, hyperparathyroidism, and severe anxiety disorder/insomnia who presents from home with about 3 weeks of severe constipation. His last bowel movement was on 05/07 and was a few hard/firm balls of stool at that time. He went to the [facility] ER on 05/09 due to his constipation and had santacruz- CT of the chest/abd/pelvis. His girlfriend at bedside had a copy of the CT report and this showed mild-moderate constipation but no other acute findings of the abdomen/pelvis. He was discharged and asked to take laxatives for the constipation. Despite use of miralax, senna, colace, dulcolax suppository, and enemas he has yet to have a bowel movement. He is now having lower abdominal discomfort and has had intermittent nausea/vomiting over the last few weeks. #significant change in bowel habits with severe constipation - -symptoms & signs are quite concerning in light of weight loss, inability to eat/drink, etc. -EGD/colonoscopy today #weight loss / severe protein calorie malnutrition - -10-15 pounds over 1 month or less -GI consult for colonoscopy +/- EGD -santacruz-CTs at [facility] ER was negative for any pathology #ROBERT, IgA nephropathy / CKD stage 4 - -follows with Dr Jose Toth, [facility] -last nephrology office visit there was discussion about referral to a transplant team at tertiary care -baseline Cr 4's/low 5's -IV fluids given -he refused AM labs -CT abd/pelvis done 2 weeks ago at [facility] did not show obstruction/hydronephrosis -u/a with proteinuria only #hyperlipidemia - -cont statin #severe anxiety/insomnia - -ativan prn anxiety - increased to 1 mg po/SL -seroquel HS -wellbutrin daily -hold hydroxyzine as this medicine can contribute to constipation #DVT proph - -start if staying overnight #abnormal lungs on CT - -patient is not a cigarette smoker but does vape -lungs are hyperinflated and there are emphysematous changes -etiology? due to vaping? alpha-1 antitrypsin deficiency? Admission and Anticipated Discharge Date Admission Date: May 23, 2025 Subjective The patient is a 44-year-old male with stage 4 chronic kidney disease due to IgA nephropathy, admitted because of severe constipation. He has had significant changes in his bowel habits, hasn't been eating much, and has lost weight over the past few weeks. This led to severe constipation, and he hasn't had any bowel movement for about 2 weeks, severe constipation 3 weeks. Gastroenterology was consulted, and he underwent bowel prep last night. A colonoscopy and EGD are planned for today. An abdominal x-ray done yesterday showed moderate stool retention but was otherwise unremarkable. His TSH levels are normal. There is a concern that his use of hydroxyzine might be contributing to his constipation, and there is also worry about new onset CTS. A recent CT scan at the [facility] ER was negative for any intra-abdominal issues. The bowel prep was effective, causing him to have bowel movements. His cost analyst is Dr. Toth. His baseline creatinine levels are in the 4s or low 5s. He was treated with IV fluids overnight, BMP ordered but he refused his AM labs. His urinalysis was negative except for proteinuria. This morning, he is feeling very anxious, has a headache, and is shaky. He is upset about being on the quality assurance monitor and his IV fluids were discontinued at his request, but he feels dehydrated now and wants them back on. He is also upset that the colonoscopy and EGD are not scheduled until 4:00 PM. He appears pale, thin, very anxious, and tremulous. He is alert and oriented, his face is symmetric, his speech is normal, and he can move all his extremities. He refused his labs this morning. For his anxiety, he will be given 1 mg of oral Ativan, and his IV fluids will be resumed. The quality assurance monitor will be discontinued since it is not necessary for his condition. Physical Exam Physical Exam: General Appearance: Pale, thin, very anxious, tremulous. Vital signs: Reviewed past 24h vital signs in EMR, unremarkable. HEENT: Within normal limits. Respiratory: Within normal limits. Extremities: warm and well perfused, no LE edema. Skin: Warm and dry, no rash. Neurological: Alert and oriented x4, symmetric face, normal speech, movement in all extremities. Psychiatric: Very anxious, tremulous. Results & Data Results & Data Vital Signs (Past 12 Hours) Vital Signs Temp Pulse Pulse Resp BP Pulse Ox O2 Del Method 05/24/25 07:33 37.1 C 72 20 151/82 H 93 Room Air 05/24/25 07:22 81 05/24/25 03:57 36.6 C 73 20 132/86 96 Room Air 05/24/25 00:10 36.6 C 89 20 131/87 96 Room Air 05/23/25 22:12 102 H Laboratory Results EKG: I personally reviewed and interpreted the EKG tracing and it showed: [EKG findings] {if none present delete this entire row} CXR: I personally reviewed and interpreted the chest x-ray film and it showed: [CXR findings] {if none delete this entire row} - Laboratory Studies: - TSH: Normal - Urinalysis: Negative except for proteinuria - Imaging: - Abdominal x-ray (05/23/2025): Moderate stool retention, otherwise unremarkable - CT at [facility] ER: Negative for intra-abdominal pathology PG Care Time/CCT Total # of Minutes Spent Total Time Spent with Patient: Total time spent is greater than 50% in coordination of care (as documented) at patient's floor/unit and/or counseling patient: Coding Level of Care Code 92144 SUB INP/OBS CARE 2/35MIN Diagnoses Change in bowel habits R19.4 Constipation K59.00 Weight loss R63.4 Severe protein-calorie malnutrition E43 Insomnia G47.00 Anxiety disorder F41.9 IgA nephropathy N02.8 Chronic kidney disease N18.9 Chronic kidney disease stage: unspecified stage Hypercholesterolemia E78.00 (8) Chronic kidney disease Chronic kidney disease stage: unspecified stage Qualified Code(s): N18.9 - Chronic kidney disease, unspecified
--- NOTE | 2025-05-24 10:38 | History & Physical Bridge Note ---
Date of Service May 24, 2025 History & Physical Bridge Note I have examined the patient, reviewed the History & Physical and in the interval since the performance of the History & Physical I have noted the following changes of clinical significance: no changes noted Patient has been NPO. He has completed the majority of his prep. He is having yellow-liquid stools without stool. Patient is frustrated about his NPO status and having to wait for his scopes. Would ideally like to have his updated Creatinine back soon, though I do not think patient has had labs yet today. Keep NPO & proceed with EGD/colonoscopy today. Supervising Physician Co-Signing Physician Notes Patient with profound weight loss change in bowel pattern with no BMs for the last 2 weeks. He believes the prep went reasonably well states he is coming ye llow. EGD colonoscopy today to evaluate bowel change and anorexia weight loss. Risk benefits including bleeding and perforation addressed informed consent obtained for both upper and lower endoscopy
[2025-05-24 11:15] LABS: Anion Gap 15.0 (3-11); Blood Urea Nitrogen 45.0 mg/dl (6-23); Calcium 10.3 mg/dl (8.6-10.3); Carbon Dioxide 23.0 mmol/L (21-32); Chloride 104.0 mmol/L (98-107); Creatinine Clr Calc Pharmacy 11.6 ml/min; Glucose 94.0 mg/dl (70-99(Fasting)); Magnesium 2.3 mg/dl (1.7-2.4); Potassium 4.7 mmol/L (3.5-5.1); Sodium 142.0 mmol/L (136-145)
--- NOTE | 2025-05-24 13:50 | Anesthesiology Consultation ---
Date of Service May 24, 2025 Assessment & Plan Chart Review Chart Review: Acceptable Risk for Surgery and Patient NOT seen in Pre Admission Testing Consults Requested none ASA ASA4 Proposed Anesthesia Anesthesia Type: MAC History Surgery Operation Date: 05/24/25 16:55 Proposed Procedures p Colonoscopy EGD Dr. Anjel Hobbs MD Height/Weight Height: 5 ft 10 in Weight: 54.8 kg Allergies Allergy/AdvReac Type Severity Reaction Status Date / Time oxycodone AdvReac Mild ITCHY Verified 05/23/25 08:34 prednisone AdvReac hoover Verified 05/23/25 08:34 Medications Home Medications Medication Instructions Recorded Confirmed Last Taken hydroxyzine HCl 50 mg tablet 50 mg PO TID PRN anxiety #30 tabs 12/22/24 05/23/25 05/22/25 atorvastatin 20 mg tablet 20 mg PO HS 05/23/25 05/23/25 05/22/25 bupropion HCl 100 mg tablet 100 mg PO QPM 05/23/25 05/23/25 05/22/25 multivitamin 1 tab PO HS 05/23/25 05/23/25 05/22/25 quetiapine 25 mg tablet (Seroquel) 25 mg PO HS INSOMNIA/Anxiety 05/23/25 05/23/25 05/22/25 Active Medications Generic Name Dose Route Start Last Admin Trade Name Freq PRN Reason Stop Dose Admin Acetaminophen 650 mg 05/23/25 11:18 05/24/25 09:56 Acetaminophen 325 Mg Tab PO 06/22/25 11:17 650 mg Q4H PRN Administration Pain or Fever Atorvastatin Calcium 20 mg 05/23/25 21:00 05/23/25 20:07 Atorvastatin 20 Mg Tab PO 06/22/25 20:59 20 mg HS MADDI Administration Bupropion HCl 100 mg 05/23/25 21:00 05/23/25 20:07 Bupropion Hcl 100 Mg Tablet PO 06/22/25 20:59 100 mg QPM MADDI Administration Dextrose/Sodium Chloride 1,000 mls @ 80 mls/hr 05/23/25 11:18 05/24/25 10:46 D5w And Nss IV 05/26/25 11:17 80 mls/hr .[id number] MADDI Administration Multivitamins 1 tab 05/23/25 21:00 05/23/25 20:08 Multivitamin Tab PO 06/22/25 20:59 1 tab HS MADDI Administration Ondansetron HCl 4 mg 05/23/25 11:18 05/24/25 03:45 Ondansetron Inj 2 Mg/Ml 2 Ml Vial IV 06/22/25 11:17 4 mg Q6H PRN Administration Nausea Quetiapine Fumarate 25 mg 05/23/25 21:00 05/23/25 20:08 Quetiapine Fumarate 25 Mg Tablet PO 06/22/25 20:59 25 mg HS MADDI Administration Quetiapine Fumarate 25 mg 05/24/25 10:58 05/24/25 11:47 Quetiapine Fumarate 25 Mg Tablet PO 06/23/25 13:59 25 mg TID PRN Administration anxiety Past Medical History Medical History Insomnia Anxiety disorder Depression IgA nephropathy Chronic kidney disease Hyperparathyroidism Anemia Borderline personality disorder Hypercholesterolemia Complete left bundle branch block COVID-19 Gout (11/30/12) ASCVD Ao Emphysema severe protein calorie malnutrition Exercise / Class Metabolic Activity II 4-5 Yardwork/Stairs/Walk up hill Past Family History Family History Brother Bipolar disorder Denies family history of Ovarian cancer Prostate cancer Myocardial infarction Breast cancer Colorectal cancer Past Surgical History Surgical History S/P hernia surgery S/P wisdom tooth extraction H/O exploratory laparotomy age 19; his kidney disease was found during that hospitalization Past Anesthesia History No Hx of Anesthesia Complications and No Family Hx of Anesthesia Complications History of PONV No Hx of PONV and No Hx of Motion Sickness Social History Smoking Status: Never smoker Do You Dip or Chew Tobacco: No Hx Alcohol Use: No Alcohol type: beer Hx Substance Use: No substance use type: marijuana Last Used Substance: Days (ago) Physical Exam Vital Signs Last Vital Signs Temp 37.1 C 05/24/25 07:33 Pulse 72 05/24/25 07:33 Resp 20 05/24/25 07:33 BP 151/82 H 05/24/25 07:33 Pulse Ox 93 05/24/25 07:33 O2 Del Method Room Air 05/24/25 07:33 Testing Laboratory Results 05/23/25 06:40 05/24/25 10:26 Urine Color Yellow 05/23/25 08:30 Urine Appearance Cloudy (Clear) A 05/23/25 08:30 Urine pH 8.0 (4.5-7.5) H 05/23/25 08:30 Ur Specific [place] 1.006 (1.000-1.030) 05/23/25 08:30 Urine Protein 2+ (Negative) H 05/23/25 08:30 Urine Glucose (UA) Negative (Negative) 05/23/25 08:30 Urine Ketones Negative (Negative) 05/23/25 08:30 Urine Nitrite Negative (Negative) 05/23/25 08:30 Ur Leukocyte Esterase Negative (Negative) 05/23/25 08:30 Urine WBC (Auto) 0-5 /hpf (0-5) 05/23/25 08:30 Urine RBC (Auto) 0-2 /hpf (0-2) 05/23/25 08:30 U Hyaline Cast (Auto) 0-2 /lpf (0-2) 05/23/25 08:30 U Epithel Cells (Auto) 0-2 /hpf (0-2) 05/23/25 08:30 Urine Bacteria (Auto) None Seen (None Seen) 05/23/25 08:30 Electrocardiogram Date: 04/08/24 Findings: + NSR @ (@ 73;LBBB) and + LBBB Echocardiogram Date: 06/13/23 EF: 50% LV Function: normal RWMA: + none Valvular Disease: + MR (mild) RVSP 30 MMHG
[2025-05-24] MEDS ORDERED: PROPOFOL IV EMULSION 10 MG/ML 20 ML VIAL IV ONE (14:07)
[2025-05-24] MEDS ORDERED: ATROPINE SULFATE 0.1 MG/ML 10ML SYR IV PRN (14:08)
[2025-05-24] MEDS ORDERED: LIDOCAINE 2% 2 ML VIAL/AMP(20MG/ML) INFIL ONE (14:08)
--- NOTE | 2025-05-24 14:54 | Communication Note ---
Date of Service: May 24, 2025 EGD and colon without significant pathology. No ulcers no signs of celiac disease no gastric outlet obstruction no colonic obstruction normal terminal i leum without evidence of Crohn's disease Plan reassurance. Dietary consult. Anxiety and depression.
--- NOTE | 2025-05-24 15:03 | Anesthesiology Progress Note ---
Date of Service May 24, 2025 Anesthesia Post Procedure Vital Signs Vital Signs: Temp Pulse Pulse Resp BP BP Pulse Ox 05/24/25 13:56 37 C 96 H 18 144/103 H 97 05/24/25 07:33 37.1 C 72 20 151/82 H 93 05/24/25 07:22 81 05/24/25 03:57 36.6 C 73 20 132/86 96 05/24/25 00:10 36.6 C 89 20 131/87 96 05/23/25 22:12 102 H 05/23/25 19:51 81 05/23/25 19:17 36.5 C 100 H 18 151/93 H 100 O2 Del Method 05/24/25 13:56 Room Air 05/24/25 07:33 Room Air 05/24/25 07:22 05/24/25 03:57 Room Air 05/24/25 00:10 Room Air 05/23/25 22:12 05/23/25 19:51 05/23/25 19:17 Room Air Pain Intensity Abdomen: Pain Intensity: 2 Transfer of Care Handoff Completed per policy Notes Mental Status: alert / awake / arousable Patient Amnestic to Procedure: Yes Nausea / Vomiting: adequately controlled Pain: adequately controlled Airway Patency, RR, SpO2: stable & adequate BP & HR: stable & adequate Hydration State: stable & adequate Anesthetic Complications: no major complications apparent
--- NOTE | 2025-05-24 15:05 | GI REPORT ---
[facility] Patient: RAKESH MOREIRA : 1980 Sex at : Male Age: 44 Years Procedure: Upper GI endoscopy Date: 05/24/2025 Attending Physician: Peter Hobbs MD Referring MD: Lucía Pinzon Md Indications: - Epigastric abdominal pain - Anorexia weight loss Medications: - Monitored Anesthesia Care Complications: - No immediate complications. Estimated Blood Loss: - Estimated blood loss was minimal. Procedure: - The egd scope was introduced through the mouth and advanced to the third part of the duodenum. - The upper GI endoscopy was accomplished without difficulty. - The patient tolerated the procedure well. Findings: - The examined esophagus was normal. - Localized mild inflammation characterized by erythema was found in the gastric antrum. Biopsies were taken with a cold forceps for Helicobacter pylori testing. Estimated blood loss was minimal. - The examined duodenum was normal. Impression: - Normal esophagus. - Gastritis, characterized by erythema. Biopsied. - Normal examined duodenum. - No mechanical reasons for your poor appetite no gastric L obstruction or blockage. The redness in your stomach may just be related to your prep that we did biopsy for the ulcer bacteria Helicobacter pylori. Will proceed with your colonoscopy today. - Proceed with colonoscopy today. Recommendation: Procedure Code(s): - 20944, Esophagogastroduodenoscopy, flexible, transoral; with biopsy, single or multiple Diagnosis Code(s): - R10.13, Epigastric pain - K29.70, Gastritis, unspecified, without bleeding CPT(R) - 2023 copyright [employer]. All Rights Reserved. The CPT codes, CCI edits and ICD codes generated are intended as suggestions and were generated based on input data. These codes are preliminary and upon student driving instructor review may be revised to meet current compliance and payer requirements. The provider is responsible for the final determination of appropriate codes, and modifiers. Peter Hobbs MD This document has been electronically signed. Note Initiated:05/24/2025 Note Completed:05/24/2025 3:04 PM \\[email or web address]\[email or web address]\Data\Provation\Results\LIVE\[id number]
--- NOTE | 2025-05-24 15:08 | GI REPORT ---
[facility] Patient: RAKESH MOREIRA : 1980 Sex at : Male Age: 44 Years Procedure: Colonoscopy Date: 05/24/2025 Attending Physician: Peter Hobbs MD Referring MD: Referred Self; Lucía Pinzon Md Indications: - Altered bowel pattern - Anorexia profound weight loss Medications: - Monitored Anesthesia Care Complications: - No immediate complications. Estimated Blood Loss: - Estimated blood loss: None. Procedure: - The adult colonoscope was introduced through the anus and advanced to the terminal ileum, with identification of the appendiceal orifice and ileocecal valve. - The colonoscopy was performed without difficulty. - The quality of the bowel preparation was adequate. Findings: - The terminal ileum appeared normal. - The perianal examination was normal. - Normal mucosa was found in the entire colon. Impression: - The examined portion of the ileum was normal. - Normal mucosa in the entire examined colon. - No specimens collected. - The entire examined colon is normal. - No blockage or obstruction of your colon. Decreased bowel movements may related to decreased p.o. intake. Medications. Your renal issues and higher calcium levels. MiraLAX daily. Reassurance. Recommendation: Procedure Code(s): - 58741, Colonoscopy, flexible; diagnostic, including collection of specimen(s) by brushing or washing, when performed (separate procedure) CPT(R) - 2023 copyright [employer]. All Rights Reserved. The CPT codes, CCI edits and ICD codes generated are intended as suggestions and were generated based on input data. These codes are preliminary and upon shift stacker review may be revised to meet current compliance and payer requirements. The provider is responsible for the final determination of appropriate codes, and modifiers. Peter Hobbs MD This document has been electronically signed. Note Initiated:05/24/2025 Note Completed:05/24/2025 3:07 PM [email or web address]\[email or web address]\Data\Provation\Results\LIVE\[id number]
[2025-05-24 15:32] VITALS: O2SAT 99
[2025-05-24 16:13] VITALS: PULSE 67; RESP 20; TEMP 97.9
--- NOTE | 2025-05-24 19:30 | Discharge Summary ---
Discharge Summary Date of Service May 24, 2025 Principal Dx & Hospital Course #1 = Principal Diagnosis (1) Change in bowel habits: (2) Constipation: (3) Weight loss: (4) Severe protein-calorie malnutrition: (5) Insomnia: (6) Anxiety disorder: (7) IgA nephropathy: (8) Chronic kidney disease: (9) Hypercholesterolemia: Plan 44yo male with history of IgA nephropathy with resulting CKD stage 4, gout, hyperlipidemia, hyperparathyroidism, and severe anxiety disorder/insomnia who presents from home with about 3 weeks of severe constipation. His last bowel movement was on 05/07 and was a few hard/firm balls of stool at that time. He went to the [facility] ER on 05/09 due to his constipation and had santacruz- CT of the chest/abd/pelvis. His girlfriend at bedside had a copy of the CT report and this showed mild-moderate constipation but no other acute findings of the abdomen/pelvis. He was discharged and asked to take laxatives for the constipation. Despite use of miralax, senna, colace, dulcolax suppository, and enemas he has yet to have a bowel movement. He is now having lower abdominal discomfort and has had intermittent nausea/vomiting over the last few weeks. #significant change in bowel habits with severe constipation, anorexia, nausea occasional vomiting - #weight loss / severe protein calorie malnutrition - -10-15 pounds over 1 month or less -GI consult for colonoscopy +/- EGD - unremarkable possible mild gastritis started pepcid. Biopsy for H. pylori pending -santacruz-CTs at [facility] ER was negative for any pathology -RD consulted -supplement B12 and thiamine, cont MVT. Protein supplement -referral for gastric empyting study. Could be GI motility disorder -trial reglan, trial appetite stimulant with mirtazapine -suspect advanced CKD and anxiety contributing a lot -started bowel regimen #IgA nephropathy / CKD stage 4 - -I do not think this is ROBERT. GFR is close to recent basleline. -Ca and potassium not elevated -has anion gap metabolic acidosis -CT abd/pelvis done 2 weeks ago at [place] did not show obstruction/hydronephrosis -u/a with proteinuria only -offered staying overnight for nephrology consult, prefers to go home will expedite follow up with Dr. Toth #hyperlipidemia - -consider stopping statin, with the severe weight loss, risks likely outweigh benefit -defer to PCP #severe anxiety/insomnia - -tapering off bupropion because of anorexia, insomnia, anxiety -started trial of mirtazapine to promote sleep, appetite -continue celexa and seroquel -psychiatry referral for complex med management if he is amenable - deferred to primary care #abnormal lungs on CT - -patient is not a cigarette smoker but does vape -lungs are hyperinflated and there are emphysematous changes -etiology? due to vaping? alpha-1 antitrypsin deficiency? asymptomatic. follow up as outpatient Admission HPI Per Admitting Provider Pleasant 44yo male with history of IgA nephropathy with resulting CKD stage 4, gout, hyperlipidemia, hyperparathyroidism, and severe anxiety disorder/insomnia who presents from home with about 3 weeks of severe constipation. His last bowel movement was on 05/07 and was a few hard/firm balls of stool at that time. He went to the [facility] ER on 05/09 due to his constipation and had santacruz-CT of the chest/abd/pelvis. His girlfriend at bedside had a copy of the CT report and this showed mild-moderate constipation but no other acute findings of the abdomen/pelvis. He was discharged and asked to take laxatives for the constipation. Despite use of miralax, senna, colace, dulcolax suppository, and enemas he has yet to have a bowel movement. Over the last 4+ weeks he has had very poor appetite, eating <500 calories/day during this time period. He has had intermittent nausea/vomiting. The latter is typically mucous only. He was given zofran to use on PRN basis from the [place] ER but it has not helped. Despite the severe constipation he has been passing flatus. He denies pain, but has had discomfort in the lower abdomen. Additionally, over the last 24-48 hours, he has had difficulty voiding. In the ER a PVR was checked and found to be 20cc. Prior to March he has never had issues with constipation or his bowels. Had an EGD 10+ years ago and was wnl to his recollection. Never had colonoscopy. He was to complete a cologuard test in the last year but never completed it. Discharge Plan Discharge Items Patient Disposition: Home - Self-Care Reason For Visit: SEVERE CONSTOPATION, DEHYDRATION, WEIGHT LOSS Discharge Diagnosis: obstipation, dehydration, anorexia, CKD-4 Condition on Discharge: Fair Activity: Resume your previous activity Non-emergency contact: Primary Care Provider and Tuber Operator Follow-up/Referrals: Gilberto Choudhary III, LEONIDAS [Primary Care Provider] - Jose Toth DO [Physician] - Diet: Low Potassium (2gm) and Low Sodium (2gm) Addtl Attending Provider Instructions: You were treated for severe constipation. This resolved after bowel prep. Recommend daily bowel regimen - start with a capful of miralax every day to twice a day. See below for more details on bowel regimen. You had EGD and colonoscopy - these were basically normal. You had some mild redness in your stomach, could be mild gastritis or related to the bowel prep. Dr. Hobbs took a biopsy to check for H. pylori, a bacterial infection of the stomach that can cause dyspepsia and stomach ulcers / gastritis. Its possible your symptoms could be related to slow movement of your gastrointestinal tract. If the stomach empties slowly (gastroparesis) it can cause you to feel full too fast, nausea, vomiting and sometimes abdominal pain -we will arrange gastric emptying study as outpatient to check for this -trial of reglan (metoclopramide) a type of nausea medicine that promotes stomach empyting. Take 5 mg thirty minutes before meals up to three times a day -rarely someone has a side effect of a severe muscle spasm or involuntary movements - stop taking and take 25-50 mg of benadryl -when taken fci (years) there is a risk of potentially permanent movement disorder -doesn't interact with zofran Recommend trying B-vitamin supplements - B vitamins are important for the functioning of the gastrointestinal tract and nervous system -these are available over the counter -B12 500 mcg per day -thiamine (B1) - 200 mg twice a day for three weeks then decrease to 100 mg daily -regular multivitamin Your chronic kidney disease may also be causing low appetite and nausea -follow up with Dr. Toth Try taking mirtazapine at bedtime instead of bupropion Mirtazapine promotes sleep and stimulates appetite, while bupropion does the opposite You can start the mirtazapine now and cut the bupropion in half for a week, then discontinue it Try to eat regularly and increase your protein. Protein shake or supplement twice a day would be helpful. Consider seeing a psychiatrist for medication management because mood and emotion are intertwined with the gastrointestinal tract It was a pleasure taking care of you in the hospital, Lucía Pinzon MD Pending Studies at Discharge: No Stand-Alone Forms: Anesthesia/Sedation, Adult, [facility], Smoking Cessation Medications and DC Order Prescriptions: New mirtazapine 15 mg tablet 15 mg PO HS Qty: 30 0RF metoclopramide HCl [Reglan] 5 mg tablet 5 mg PO AC Qty: 45 0RF Rx Instructions: administer 30 minutes before meals famotidine 20 mg Tablet 20 mg PO BID Qty: 0 0RF Rx Instructions: buy over the counter - for gastritis Continued quetiapine [Seroquel] 25 mg tablet 25 mg PO HS Patient Comments: 05/23-can take up to TID; mostly used at bed time multivitamin [Multi-Vitamins] Tablet 1 tab PO HS hydroxyzine HCl 50 mg tablet 50 mg PO TID PRN (Reason: anxiety) Qty: 30 3RF Rx Instructions: use sparingly - can contribute to constipation Changed bupropion HCl 100 mg tablet 50 mg PO QPM Qty: 0 0RF Held atorvastatin 20 mg tablet 20 mg PO HS Hold Instructions: talk to your doctor about holding/stopping - with the weight loss, risks of side effect likely outweighs benefit at this time Discharge Orders: Discharge Order (Routine); Ordered 05/24/25 Ordered By: Lucía Pinzon Admission Data Admit Date/Time: 05/23/25 10:45 Attending Provider: Lucía Pinzon Admit Provider: Lex Donnelly Primary Care Provider: Gilberto Choudhary III Other Providers: Lex Donnelly; Peter Hobbs; Debbie Méndez Hospital Stay Data Consultations 05/23/25 08:43 ED Decision to Admit Stat 05/23/25 10:37 Consult Gastroenterology Routine 05/24/25 16:35 Consult Patient Rep [Consult Patient Services] Stat 05/24/25 16:43 Consult Nephrology Routine Procedures Performed Operation Date: 05/24/25 16:55 Actual Procedures p EGD Biopsy Cytology - Peter Hobbs MD s Colonoscopy - Peter Hobbs MD Pending Results Patient Have Any Pending Studies at Discharge: No Discharge Instructions Given to Patient (Per Discharging Provider) You were treated for severe constipation. This resolved after bowel prep. Recommend daily bowel regimen - start with a capful of miralax every day to twice a day. See below for more details on bowel regimen. You had EGD and colonoscopy - these were basically normal. You had some mild redness in your stomach, could be mild gastritis or related to the bowel prep. Dr. Hobbs took a biopsy to check for H. pylori, a bacterial infection of the stomach that can cause dyspepsia and stomach ulcers / gastritis. Its possible your symptoms could be related to slow movement of your gastrointestinal tract. If the stomach empties slowly (gastroparesis) it can cause you to feel full too fast, nausea, vomiting and sometimes abdominal pain -we will arrange gastric emptying study as outpatient to check for this -trial of reglan (metoclopramide) a type of nausea medicine that promotes stomach empyting. Take 5 mg thirty minutes before meals up to three times a day -rarely someone has a side effect of a severe muscle spasm or involuntary movements - stop taking and take 25-50 mg of benadryl -when taken fci (years) there is a risk of potentially permanent movement disorder -doesn't interact with zofran Recommend trying B-vitamin supplements - B vitamins are important for the functioning of the gastrointestinal tract and nervous system -these are available over the counter -B12 500 mcg per day -thiamine (B1) - 200 mg twice a day for three weeks then decrease to 100 mg daily -regular multivitamin Your chronic kidney disease may also be causing low appetite and nausea -follow up with Dr. Toth Try taking mirtazapine at bedtime instead of bupropion Mirtazapine promotes sleep and stimulates appetite, while bupropion does the opposite You can start the mirtazapine now and cut the bupropion in half for a week, then discontinue it Try to eat regularly and increase your protein. Protein shake or supplement twice a day would be helpful. Consider seeing a psychiatrist for medication management because mood and emotion are intertwined with the gastrointestinal tract It was a pleasure taking care of you in the hospital, Lucía Pinzon MD Total Time Total Time Spent Total Time Spent (In Minutes): I personally spent: 45 minutes today on clinical care activities including: reviewing chart notes and vital signs reviewing labs reviewing studies discussion with payroll consultant - GI examining and counseling the patient counseling the patient's family writing orders prescriptions, discharge instructions documentation Coding Level of Care Code 38330 INP/OBS DISCH >30 MIN Diagnoses Change in bowel habits R19.4 Constipation K59.00 Weight loss R63.4 Severe protein-calorie malnutrition E43 Insomnia G47.00 Anxiety disorder F41.9 IgA nephropathy N02.8 Chronic kidney disease N18.9 Chronic kidney disease stage: unspecified stage Hypercholesterolemia E78.00
[2025-05-24 19:36] VITALS: BP 151/93
[2025-05-24] MEDS: MIRTAZAPINE TAB 15 MG TAB PO STA (19:47)
[2025-05-24] MEDS: METOCLOPRAMIDE HCL 5 MG TABLET PO STA (20:54)
[2025-05-24] MEDS ORDERED: FAMOTIDINE 20 MG TAB PO SCH (21:00)
[2025-05-24] MEDS ORDERED: MIRTAZAPINE TAB 15 MG TAB PO SCH (21:00)
== END 2025-05-24 21:41 | disposition home or self-care (01) | DRG 391 ==
LOC: SUATTDRO → ED 06:10 → INTOOBSV 10:45 → EDINP 10:45 → SUATTDRO 10:45 → 2N 11:18